=== PATIENT | male | born 1970 | race Caucasian/White ===

== ENCOUNTER 2016-04-24 06:35 | Emergency (ER) | payer BC ==
[~2016-04-24] VITALS: Ht 190.5 cm; Wt 135.6 kg
[2016-04-24 06:35] VITALS: TEMP 36.5; O2SAT 94; O2SAT 96; Ht 190.5 cm; Wt 135.6 kg
[~2016-04-24 06:35] MED LIST: CPR500HP PO; GABA1CAP4 PO; MTR500 PO
[2016-04-24] MEDS ORDERED: SODIUM CHLORIDE 0.9% 1000ML 1,000 ML IV STA (06:48)
[2016-04-24] MEDS ORDERED: RANITIDINE HCL 150 MG TAB PO STA (06:48)
[2016-04-24] MEDS ORDERED: SULFAMETHOXAZOLE/TRIMETHOPRIM DS 800/160MG TAB PO STA (06:59)
[2016-04-24 07:20] LABS: BASO % 0.9 %; BASO ABS # 0.06 K/uL (0-0.2); COMPLETE YES; HEMATOCRIT 44.5 % (42-52); IG% 0.3 %; LYMPH % 27.3 %; LYMPH ABS # 1.88 K/uL (1.2-3.4); MEAN CELL VOLUME 88.8 fL (80-100); MEAN CORPUSCULAR HEMOGLOBIN 30.7 pg (25-34); MEAN CORPUSCULAR HGB CONC 34.6 g/dl (32-36); MEAN PLATELET VOLUME 10.1 fL (7.4-10.4); NEUT % 58.5 %; PLATELET COUNT 278 K/uL (130-400); RED BLOOD COUNT 5.01 M/uL (4.7-6.1); WHITE BLOOD COUNT 6.89 K/uL (4.8-10.8)
--- NOTE | 2016-04-24 07:24 | DIAGNOSTIC IMAGING REPORT ---
CHEST ONE VIEW PORTABLE CLINICAL HISTORY: Atypical chest pain. Allergic reaction. COMPARISON STUDY: No previous studies for comparison. FINDINGS: The heart is enlarged. There is no focal pulmonary consolidation. There is no overt failure. No pneumothorax is visualized.[ There are minor left basilar atelectatic changes IMPRESSION: Cardiomegaly. No evidence of focal pulmonary consolidation. Electronically signed by: Catracho Piña M.D. 04/24/2016 7:21 AM Dictated Date/Time: 04/24/2016 7:21 AM
[2016-04-24 07:38] LABS: ALT/SGPT 30 U/L (12-78); BLOOD UREA NITROGEN 20 mg/dl (7-18); CALCIUM 9.2 mg/dl (8.5-10.1); CARBON DIOXIDE 24 mmol/L (21-32); CHLORIDE 106 mmol/L (98-107); GLUCOSE 107 mg/dl (70-99); POTASSIUM 3.9 mmol/L (3.5-5.1); SODIUM 141 mmol/L (136-145)
[2016-04-24 07:44] LABS: ALKALINE PHOSPHATASE 60 U/L (45-117); AST/SGOT 20 U/L (15-37); CKMB/CK RATIO 0.8 (0-3.0)
--- NOTE | 2016-04-24 08:03 | EMERGENCY ROOM VISIT NOTE ---
History Report prepared by Nicki: Silvia Mccauley Under the Supervision of: Dr. David Johnson M.D. First contact with patient: 06:38 Chief Complaint: ALLERGIC REACTION Stated Complaint: ALLERGIC REACTION History of Present Illness The patient is a 45 year old male arriving by ambulance who presents to the Emergency Room for evaluation of a possible allergic reaction after taking 500 mg Metronidazole and Ciprofloxacin at 1.5 hours prior to arrival. Currently, the patient is resting more comfortably as he had improvement of symptoms after receiving NSS 400 ml IV, 1 DuoNeb, Benadryl 50 mg IV and Solu-Medrol 125 mg IV via EMS en route to the ED, however he is still experiencing mild tightness to his chest as well as lightheadedness. Patient states that he was recently prescribed Metronidazole and Ciprofloxacin for a flare up of diverticulitis. About 15 minutes after taking 500 mg of each medication at 0500 for the first time this morning, the patient developed a rash to his neck and back, watery eyes, tightness to his throat and chest, difficulty swallowing, as well as shortness of breath. The patient called the ambulance for assistance, and upon their arrival he states that he was feeling improved, however, his symptoms then returned en route to the ED. The patient denies coming into any other substances that may have lead to the reaction today, including new foods, laundry detergents, perfumes, or other medications. He states that he did experience a similar reaction after taking penicillin several years ago. He is unsure of which antibiotic he received during his last diverticulitis flare 15 years prior. The patient denies having recent fevers, chills, headache, chest pain, shortness of breath, abdominal pain, nausea, vomiting, diarrhea or urinary difficulties, or other symptoms prior to the reaction today. Patient has a history of hypertension. He denies personal history of cardiac disease but states that his grandfather of [place] at age 58. Source of History: patient Onset: 514 Position: other (generalized) Symptom Intensity: mild Quality: other (allergic reaction) Timing: other (improved) Modifying Factors (Relieving): other (Benadryl, NSS, Solu-Medrol, DuoNeb) Associated Symptoms: + SOB, + chest pain (tightness), + rash, + sorethroat ( tightness), No abdominal pain, No chills, No diarrhea, No fevers, No nausea, No urinary symptoms, No vomiting Review of Systems See HPI for pertinent positives & negatives. A total of 10 systems reviewed and were otherwise negative. Past Medical & Surgical Medical Problems: (1) Diverticulitis Colon (W/O Ment Of Hemorrhage) (2) Hypertension Nos Family History FHx: heart disease Social History Smoking Status: Never Smoker Alcohol Use: none Drug Use: none Marital Status: Occupation Status: employed Current/Historical Medications Scheduled Ciprofloxacin (Ciprofloxacin HCl), 1 TAB PO BID Metronidazole (Metronidazole), 1 TAB PO UD Prednisone (Prednisone Tab), 0 PO DAILY Ranitidine Hcl (Zantac), 150 MG PO BID Sulfamethoxazole-Trimethoprim (Bactrim Ds 800MG/160MG), 1 TAB PO BID Allergies Coded Allergies: Ciprofloxacin (Verified Allergy, Intermediate, rash. chest tightness. SOB. dizziness, 04/24/16) Metronidazole (Verified Allergy, Intermediate, rash. chest tightness. SOB. dizziness, 04/24/16) Penicillins (Verified Allergy, Unknown, 04/24/16) Physical Exam Vital Signs Date Time Temp Pulse Resp B/P Pulse Ox O2 Delivery O2 Flow Rate FiO2 04/24/16 08:41 76 16 152/95 04/24/16 07:45 71 16 157/101 04/24/16 06:41 81 04/24/16 06:35 36.5 78 16 173/103 96 Room Air 04/24/16 06:35 96 Room Air 04/24/16 06:35 94 Room Air Physical Exam GENERAL: Patient is a healthy-appearing well-nourished 45 year old male. HEAD: Normocephalic atraumatic EYES: Ocular movements intact pupils equal and react to light. Sclera are injected. OROPHARYNX mucous membranes are moist no exudates present no erythema or edema present NECK: Supple no nuchal rigidity CHEST: Good equal expansion LUNGS: Clear and equal to auscultation CARDIAC: Normal S1 and S2 ABDOMEN: Soft nontender no guarding BACK: No CVA tenderness EXTREMITIES: No pain upon palpation normal muscle strength in all groups no clubbing cyanosis or edema SKIN: Hives on the arms and chest. NEURO: Patient is following commands is answering questions appropriately. Alert and oriented x3 Cranial Nerves 2-12 grossly intact Medical Decision & Procedures ER Provider Diagnostic Interpretation: X-ray results as stated below per interpretation by me and the radiologist: CHEST ONE VIEW PORTABLE CLINICAL HISTORY: Atypical chest pain. Allergic reaction. COMPARISON STUDY: No previous studies for comparison. FINDINGS: The heart is enlarged. There is no focal pulmonary consolidation. There is no overt failure. No pneumothorax is visualized.[ There are minor left basilar atelectatic changes IMPRESSION: Cardiomegaly. No evidence of focal pulmonary consolidation. Electronically signed by: Catracho Piña M.D. 04/24/2016 7:21 AM Dictated Date/Time: 04/24/2016 7:21 AM Laboratory Results 04/24/16 07:00 Red Blood Count 5.01, Mean Corpuscular Volume 88.8, Mean Corpuscular Hemoglobin 30.7, Mean Corpuscular Hemoglobin Concent 34.6, Mean Platelet Volume 10.1, Neutrophils (%) (Auto) 58.5, Lymphocytes (%) (Auto) 27.3, Monocytes (%) (Auto) 10.0, Eosinophils (%) (Auto) 3.0, Basophils (%) (Auto) 0.9, Neutrophils # (Auto ) 4.03, Lymphocytes # (Auto) 1.88, Monocytes # (Auto) 0.69, Eosinophils # (Auto ) 0.21, Basophils # (Auto) 0.06 04/24/16 07:00 Test 04/24/16 07:00 White Blood Count 6.89 K/uL (4.8-10.8) Red Blood Count 5.01 M/uL (4.7-6.1) Hemoglobin 15.4 g/dL (14.0-18.0) Hematocrit 44.5 % (42-52) Mean Corpuscular Volume 88.8 fL (80-100) Mean Corpuscular Hemoglobin 30.7 pg (25-34) Mean Corpuscular Hemoglobin Concent 34.6 g/dl (32-36) Platelet Count 278 K/uL (130-400) Mean Platelet Volume 10.1 fL (7.4-10.4) Neutrophils (%) (Auto) 58.5 % Lymphocytes (%) (Auto) 27.3 % Monocytes (%) (Auto) 10.0 % Eosinophils (%) (Auto) 3.0 % Basophils (%) (Auto) 0.9 % Neutrophils # (Auto) 4.03 K/uL (1.4-6.5) Lymphocytes # (Auto) 1.88 K/uL (1.2-3.4) Monocytes # (Auto) 0.69 K/uL (0.11-0.59) Eosinophils # (Auto) 0.21 K/uL (0-0.5) Basophils # (Auto) 0.06 K/uL (0-0.2) RDW Standard Deviation 41.6 fL (36.4-46.3) RDW Coefficient of Variation 12.9 % (11.5-14.5) Immature Granulocyte % (Auto) 0.3 % Immature Granulocyte # (Auto) 0.02 K/uL (0.00-0.02) Anion Gap 11.0 mmol/L (3-11) Est Creatinine Clear Calc Drug Dose 127.2 ml/min Estimated GFR () 94.1 Estimated GFR (Non- 81.2 BUN/Creatinine Ratio 18.0 (10-20) Calcium Level 9.2 mg/dl (8.5-10.1) Total Bilirubin 0.5 mg/dl (0.2-1) Direct Bilirubin < 0.1 mg/dl (0-0.2) Aspartate Amino Transf (AST/SGOT) 20 U/L (15-37) Alanine Aminotransferase (ALT/SGPT) 30 U/L (12-78) Alkaline Phosphatase 60 U/L (45-117) Total Creatine Kinase 157 U/L (39-308) Creatine Kinase MB 1.2 ng/ml (0.5-3.6) Creatine Kinase MB Ratio 0.8 (0-3.0) Troponin I < 0.015 ng/ml (0-0.045) Total Protein 8.2 gm/dl (6.4-8.2) Albumin 4.1 gm/dl (3.4-5.0) Lipase 187 U/L (73-393) Labs reviewed by ED physician. Medications Administered Medications (Trade) Dose Ordered Sig/Andre Route Start Time Stop Time Status Last Admin Dose Admin Sodium Chloride (Nss 1000ml) 1,000 ml @ 999 mls/hr Q1H1M STAT IV 04/24/16 06:48 04/24/16 07:48 DC 04/24/16 07:02 999 MLS/HR Ranitidine HCl (zANTac TAB) 150 mg NOW STAT PO 04/24/16 06:48 04/24/16 06:50 DC 04/24/16 07:02 150 MG Trimethoprim/ Sulfamethoxazole (Septra Ds 800/ 160MG Tab) 1 tab NOW STAT PO 04/24/16 06:59 04/24/16 07:03 DC 04/24/16 07:53 1 TAB ECG Indication: chest pain Rate (beats per minute): 72 Rhythm: normal sinus Findings: RBBB, no acute ischemic change, no ectopy Change: Repeat EKG showed NSR at 73 BPM with RBBB. No acute ischemia or ectopy. ED Course 0637: Past medical records reviewed. The patient was evaluated in room A2. A complete history and physical examination was performed. 0648: Zantac 150 mg PO and NSS bolus IV were ordered. 0659: Septra Ds 800/160 mg 1 tab PO was ordered. 0820: Upon reevaluation, the patient was doing well and was not experiencing any further symptoms. I updated him on the results of his radiology reports and lab tests. A repeat EKG will be done. 0835: The patient did not have any changes or significant findings on his repeat EKG. Discharge instructions were discussed with him at this time. He verbalized his understanding and agreement with the treatment plan, and he is now ready for disposition. Medical Decision Differential diagnosis: Etiologies such as allergic reaction, anaphylaxis, urticaria, Bentley-Oliverio syndrome, toxic epidermal necrolysis, erythema multiforme, cellulitis, as well as others were entertained. This is a 45-year-old male who presents emergency department complaining of allergic reaction. The patient was recently placed on Cipro and Flagyl for diverticulitis. He experienced a large anaphylactic-like reaction. He still has hives present on his chest. An IV was established EMS gave the patient Solu -Medrol as well as fluid. He was given Benadryl as well as Zantac. Repeat examination revealed much improvement patient's symptoms. While the patient was having his allergic reaction, he was having some chest pain and he does have a significant family history of cardiac issues. For this reason the patient had EKG as well as laboratory studies drawn including CK-MB and troponin. These were all normal. I then repeated the EKG as well as the troponin studies approximate 90 minutes later. These again were normal and unchanged. Based on these findings I felt that the patient could be safely discharged home for follow-up with cardiology. I also stressed the need for follow-up with gastroenterology. Patient was in agreement with the treatment plan. Impression Primary Impression: Allergic reaction Additional Impression: Precordial chest pain Scribe Attestation The scribe's documentation has been prepared under my direction and personally reviewed by me in its entirety. I confirm that the note above accurately reflects all work, treatment, procedures, and medical decision making performed by me. Departure Information Dispostion Home / Self-Care Prescriptions Ranitidine Hcl (ZANTAC) 150 Mg Tab 150 MG PO BID for 7 Days, #14 TAB Prov: David Johnson MD 04/24/16 Prednisone (Prednisone Tab) 20 Mg Tab 0 PO DAILY, #7 TAB 2 TABS DAILY FOR 2 DAYS, THEN 1 TAB DAILY FOR 2 DAYS, THEN 1/2 TAB DAILY FOR 2 DAYS. Prov: David Johnson MD 04/24/16 Sulfamethoxazole-Trimethoprim (Bactrim Ds 800MG/160MG) 1 Tab Tab 1 TAB PO BID for 10 Days, #20 TAB Prov: David Johnson MD 04/24/16 Referrals Benito Loyd M.D. (PCP) Forms HOME CARE DOCUMENTATION FORM, IMPORTANT VISIT INFORMATION, School Instructions, Work Instructions Patient Instructions Chest Pain - [facility], Diverticulosis Diverticulitis, ED Drug React Allergic, My [facility] Additional Instructions STOP taking Cipro and Flagyl Follow up with DR Billings's office for Chest pain this week Follow up with [facility] for diverticulitis You have been examined and treated today on an emergency basis only. This is not a substitute for, or an effort to provide, complete comprehensive medical care. It is impossible to recognize and treat all injuries or illnesses in a single emergency department visit. It is therefore important that you follow up closely with Dr Loyd. Call as soon as possible for an appointment. Thank you for your time and consideration. I look forward to speaking with you again soon. Please don't hesitate to call us if you have any questions. Problem Qualifiers Primary Impression: Allergic reaction Encounter type: initial encounter Qualified Codes: T78.40XA - Allergy, unspecified, initial encounter
[2016-04-24] MEDS ORDERED: SULF800T23 PO (08:39)
[2016-04-24] MEDS ORDERED: RANI150T3 PO (08:39)
[2016-04-24] MEDS ORDERED: PRED20TA2 PO (08:39)
[2016-04-24 08:41] VITALS: BP 152/95; PULSE 76
[2016-11-04] MEDS ORDERED: DXY100 PO (12:04)
[2016-11-04] MEDS ORDERED: LCTX PO (12:04)
[2016-12-07] MEDS ORDERED: DXY100 PO (09:43)
[2016-12-07] MEDS ORDERED: ULT50X PO (09:43)
== END 2016-04-24 08:57 | disposition home or self-care (01) ==
LOC: EDBD 06:35 → C.EDA 06:36
DX: R07.2 Precordial pain (principal); L50.9 Urticaria, unspecified; T36.8X5A Adverse effect of other systemic antibiotics, initial encounter; T37.3X5A Adverse effect of other antiprotozoal drugs, initial encounter; I10 Essential (primary) hypertension; K57.32 Diverticulitis of large intestine without perforation or abscess without bleeding; I51.7 Cardiomegaly; I45.10 Unspecified right bundle-branch block; X58.XXXA Exposure to other specified factors, initial encounter; Y93.89 Activity, other specified; Y92.89 Other specified places as the place of occurrence of the external cause; Y99.8 Other external cause status

== ENCOUNTER 2016-11-02 15:31 | Inpatient (IN) | payer BC ==
[~2016-11-02] VITALS: Ht 190.5 cm; Wt 122.2 kg
[~2016-11-02 15:31] MED LIST changes: -GABA1CAP4 PO
[2016-11-02] MEDS ORDERED: SODIUM CHLORIDE 0.9% 1000ML 1,000 ML IV STA ×2 (16:29→18:06)
--- NOTE | 2016-11-02 16:32 | EMERGENCY ROOM VISIT NOTE ---
History Report prepared by Nicki: Carmelo Ojeda Under the Supervision of: Dr. Shorty Sinclair M.D. First contact with patient: 16:21 Chief Complaint: ILLNESS Stated Complaint: LIGHTHEADED,BODY ACHES,FEVER History of Present Illness The patient is a 46 year old male who presents to the Emergency Room with complaints of a worsening illness that started around 2 weeks ago. Per the patient's , the patient has been sick since the spring, and some of his doctors were thinking there were issues with the patient's kidneys, but they told the patient that the issues would pass. The patient would get intermittent left-sided flank pain, but did not get any CT scans. Per the patient's , the patient went downhill 2 weeks ago. The patient says that around 2 weeks ago , he had been working out in the heat and humidity everyday, and every time he would come home from work, he would start shaking and get freezing cold. The patient notes that he was drinking a lot of water. He adds that he has been coughing up blood at times, and is now having a headache, shortness of breath, and some left ear pain. He also notes that he has been having bilateral neck stiffness. He adds that he has been vomiting blood every morning. The patient has not had any hematuria, but his urine has been "tangerine orange". He went to the [facility] walk-in clinic prior to arrival today, and was told to come here for extensive lab work. The patient denies any rashes, burning with urination, diarrhea, melena, hematochezia, leg swelling, or recent falls or injuries. He says that he had Lyme testing a month ago which was negative. The patient notes no recent sick contacts. He has no history of blood clots. He is not on any daily medication. The patient denies any history of steroid or drug abuse. Source of History: patient, spouse/significant other Onset: Around 2 weeks ago Timing: worsening Associated Symptoms: + chills, + headache, + cough (blood), + SOB, + vomiting (blood), + urinary symptoms (orange urine), No melena, No hematochezia , No diarrhea, No rash Note: Associated symptoms: Intermittent left sided flank pain. Shakiness. Some left ear pain. Bilateral neck stiffness. Denies burning with urination, leg swelling. Review of Systems See HPI for pertinent positives & negatives. A total of 10 systems reviewed and were otherwise negative. Past Medical & Surgical Medical Problems: (1) Diverticulitis Colon (W/O Ment Of Hemorrhage) (2) Febrile illness (3) Hypertension Nos Family History FHx: heart disease Social History Smoking Status: Never Smoker Alcohol Use: none Drug Use: none Marital Status: Occupation Status: employed Current/Historical Medications No Active Prescriptions or Reported Meds Allergies Coded Allergies: Ciprofloxacin (Verified Allergy, Intermediate, rash. chest tightness. SOB. dizziness, 04/24/16) Metronidazole (Verified Allergy, Intermediate, rash. chest tightness. SOB. dizziness, 04/24/16) Sulfamethoxazole w/Trimethoprim (Verified Allergy, Intermediate, RASH, ) Penicillins (Verified Allergy, Unknown, 04/24/16) Physical Exam Vital Signs Date Time Temp Pulse Resp B/P (MAP) Pulse Ox O2 Delivery O2 Flow Rate FiO2 11/02/16 21:40 75 16 125/77 96 Room Air 11/02/16 18:51 75 16 125/76 96 Room Air 11/02/16 15:42 36.7 86 16 133/88 95 Room Air Physical Exam GENERAL: Patient is mildly anxious appearing, tired appearing, in minimal distress. HEENT: No acute trauma, normocephalic atraumatic, mucous membranes moist, no nasal congestion, no scleral icterus. NECK: No stridor, no adenopathy, no meningismus, trachea is midline. LUNGS: No dyspnea. Clear to auscultation and equal bilaterally. No wheeze, no rhonchi. HEART: Regular rate and rhythm. No murmurs, rubs, gallops appreciated. ABDOMEN: Soft, nontender, bowel sounds positive, no masses appreciated, no peritonitis. BACK: No midline tenderness, no CVA tenderness EXTREMITIES: Normal motion all extremities, no cyanosis, no edema. NEUROLOGIC: Alert and oriented, no acute motor or sensory deficits, no focal weakness, cranial nerves grossly intact. SKIN: No rash, no jaundice, no diaphoresis. Medical Decision & Procedures ER Provider Diagnostic Interpretation: Radiology results and stated below per my review and radiologist interpretation: CHEST ONE VIEW PORTABLE CLINICAL HISTORY: Shortness of breath. Hemoptysis. COMPARISON STUDY: Chest radiograph April 24, 2016. FINDINGS: No pneumothorax or pleural effusion is present. There is no consolidation to suggest pneumonia. Pulmonary vascularity is normal. Moderate cardiomegaly is unchanged. There is no evidence of pulmonary edema. IMPRESSION: 1. No acute cardiopulmonary findings. 2. Stable cardiomegaly. Electronically signed by: Boston Harper M.D. 11/02/2016 5:36 PM Dictated Date/Time: 11/02/2016 5:[address] OF THE HEAD WITHOUT CONTRAST CLINICAL HISTORY: Significant headache. COMPARISON STUDY: Head CT April 07, 2011. CT DOSE: 614.27 mGy.cm TECHNIQUE: Helical axial images of the head were obtained without IV contrast. Automated exposure control was utilized for the study. A dose lowering technique was utilized adhering to the principles of ALARA. FINDINGS: No acute intracranial hemorrhage, midline shift or mass effect is present. Ventricular system is normal. Basilar cisterns are patent. There are no extra-axial collections. Barraza-white differentiation is maintained. There are no findings to suggest acute dural sinus thrombosis or acute territorial infarct. Left maxillary sinus is diminutive and opacified. This is chronic. Right maxillary sinus is diminutive. Mastoid air cells are clear. There are no significant calvarial abnormalities. IMPRESSION: 1. No acute intracranial findings. 2. Chronic left maxillary sinusitis. Electronically signed by: Boston Harper M.D. 11/02/2016 7:29 PM Dictated Date/Time: 11/02/2016 7:[address] ANGIOGRAPHY OF THE CHEST, PULMONARY EMBOLUS PROTOCOL CLINICAL HISTORY: Hemoptysis. Elevated d-dimer. COMPARISON STUDY: Chest radiograph April 24, 2016 and November 02, 2016. TECHNIQUE: Following IV administration of 116 mL of Optiray-320, helical axial images of the chest were obtained utilizing the pulmonary embolus protocol. Maximal intensity projections and sagittal and coronal reformats were viewed on an independent 3D workstation. IV contrast was administered without complication. A dose lowering technique was utilized adhering to the principles of ALARA. FINDINGS: No central or lobar pulmonary emboli are identified. Evaluation of the segmental and subsegmental pulmonary arteries is suboptimal due to respiratory motion artifact. The heart is moderately enlarged. There is no pericardial effusion. There is no thoracic aortic dissection. Note is made of mild dilatation of the ascending aorta which measures 4.1 cm at the level of the main pulmonary artery. No enlarged thoracic lymph nodes are present. Groundglass opacities within the lower lobes, lingula and right middle lobe are suboptimally assessed due to respiratory motion artifact but favor atelectasis. The bony thorax is unremarkable. The abdomen and pelvis will be reported separately. IMPRESSION: 1. No pulmonary emboli identified although segmental and subsegmental pulmonary arteries inadequately assessed due to respiratory motion artifact. 2. Moderate cardiomegaly with mild dilatation of the ascending aorta. No thoracic dissection. No pericardial effusion. 3. Bilateral lower lobe and lingular opacities which favor atelectasis. An infectious process could appear similar but is considered less likely. Electronically signed by: Boston Harper M.D. 11/02/2016 7:42 PM Dictated Date/Time: 11/02/2016 7:[address] OF THE ABDOMEN AND PELVIS WITH CONTRAST CLINICAL HISTORY: Left flank pain, positive mono, spleen? dark urination COMPARISON STUDY: CT of the abdomen and pelvis August 11, 2014. TECHNIQUE: Following IV administration of 116 mL of Optiray-320, axial images of the abdomen and pelvis were obtained from the lung bases to the proximal femurs. Images were reviewed in the axial, sagittal, and coronal planes. IV contrast was administered without complication. A dose lowering technique was utilized adhering to the principles of ALARA. CT DOSE: 2010.27 mGy.cm FINDINGS: The liver, adrenal glands and pancreas are unremarkable. There is no biliary or pancreatic ductal dilatation. A few prominent upper abdominal lymph nodes are unchanged since exam of August 11, 2014. Water attenuation bilateral renal lesions reflect cysts. There is no hydronephrosis. Mild splenomegaly has developed since CT of August 11, 2014. In addition, there is a probable 1.9 cm peripheral hypodensity within the anterior aspect of the midpole of the spleen. This is shown on axial image 24 of 109. There is trace fluid inferior to the spleen. There is no evidence for a bowel obstruction. The appendix is normal. There is colonic diverticulosis without evidence for acute diverticulitis. Fat-containing bilateral inguinal hernias are present. There are no suspicious osseous lesions. Moderate cardiomegaly is better depicted on the chest CT. IMPRESSION: 1. Mild splenomegaly which has developed since CT of August 11, 2014. 1.9 cm peripheral hypodensity within the mid aspect of the spleen may reflect a tiny infarct or less likely laceration although artifact could appear similar. Trace fluid inferior to the spleen. 2. Moderate cardiomegaly. 3. No bowel obstruction. Normal appendix. Electronically signed by: Boston Harper M.D. 11/02/2016 7:52 PM Dictated Date/Time: 11/02/2016 7:42 PM Laboratory Results 11/02/16 16:43 Red Blood Count 4.87, Mean Corpuscular Volume 92.8, Mean Corpuscular Hemoglobin 30.8, Mean Corpuscular Hemoglobin Concent 33.2, Mean Platelet Volume 9.8, Neutrophils (%) (Auto) 20.5, Lymphocytes (%) (Auto) 64.0, Monocytes (%) (Auto) 11.8, Eosinophils (%) (Auto) 1.0, Basophils (%) (Auto) 2.3, Neutrophils # (Auto ) 2.29, Lymphocytes # (Auto) 7.11, Monocytes # (Auto) 1.31, Eosinophils # (Auto ) 0.11, Basophils # (Auto) 0.25 11/02/16 16:43 Test 11/02/16 16:43 White Blood Count 11.11 K/uL (4.8-10.8) Red Blood Count 4.87 M/uL (4.7-6.1) Hemoglobin 15.0 g/dL (14.0-18.0) Hematocrit 45.2 % (42-52) Mean Corpuscular Volume 92.8 fL (80-100) Mean Corpuscular Hemoglobin 30.8 pg (25-34) Mean Corpuscular Hemoglobin Concent 33.2 g/dl (32-36) Platelet Count 224 K/uL (130-400) Mean Platelet Volume 9.8 fL (7.4-10.4) Neutrophils (%) (Auto) 20.5 % Lymphocytes (%) (Auto) 64.0 % Monocytes (%) (Auto) 11.8 % Eosinophils (%) (Auto) 1.0 % Basophils (%) (Auto) 2.3 % Neutrophils # (Auto) 2.29 K/uL (1.4-6.5) Lymphocytes # (Auto) 7.11 K/uL (1.2-3.4) Monocytes # (Auto) 1.31 K/uL (0.11-0.59) Eosinophils # (Auto) 0.11 K/uL (0-0.5) Basophils # (Auto) 0.25 K/uL (0-0.2) RDW Standard Deviation 45.0 fL (36.4-46.3) RDW Coefficient of Variation 13.2 % (11.5-14.5) Immature Granulocyte % (Auto) 0.4 % Immature Granulocyte # (Auto) 0.04 K/uL (0.00-0.02) Prothrombin Time 11.3 SECONDS (9.0-12.0) Prothromb Time International Ratio 1.1 (0.9-1.1) Activated Partial Thromboplast Time 27.9 SECONDS (21.0-31.0) Partial Thromboplastin Ratio 1.1 D-Dimer 2510 ug/L FEU (0-500) Anion Gap 3.0 mmol/L (3-11) Est Creatinine Clear Calc Drug Dose 119.4 ml/min Estimated GFR () 93.5 Estimated GFR (Non- 80.6 BUN/Creatinine Ratio 12.1 (10-20) Calcium Level 8.9 mg/dl (8.5-10.1) Total Bilirubin 0.3 mg/dl (0.2-1) Direct Bilirubin < 0.1 mg/dl (0-0.2) Aspartate Amino Transf (AST/SGOT) 74 U/L (15-37) Alanine Aminotransferase (ALT/SGPT) 121 U/L (12-78) Alkaline Phosphatase 67 U/L (45-117) Total Creatine Kinase 60 U/L (39-308) Creatine Kinase MB < 0.5 ng/ml (0.5-3.6) Creatine Kinase MB Ratio (0-3.0) Troponin I < 0.015 ng/ml (0-0.045) C-Reactive Protein 1.35 mg/dl (0-0.29) Total Protein 7.4 gm/dl (6.4-8.2) Albumin 3.5 gm/dl (3.4-5.0) Lipase 204 U/L (73-393) Lyme Disease IgG Antibody NEG (NEG) Monoscreen POS (NEG) Laboratory results as reviewed by me. Medications Administered Medications (Trade) Dose Ordered Sig/Andre Route Start Time Stop Time Status Last Admin Dose Admin Sodium Chloride 1,000 ml @ 999 mls/hr Q1H1M STAT IV 11/02/16 16:29 11/02/16 17:29 DC 11/02/16 16:48 999 MLS/HR Sodium Chloride 1,000 ml @ 999 mls/hr Q1H1M STAT IV 11/02/16 18:06 11/02/16 19:06 DC 11/02/16 18:45 999 MLS/HR ECG Indication: SOB/dyspnea Rate (beats per minute): 71 Rhythm: normal sinus Findings: RBBB, no acute ischemic change, no ectopy ED Course 1621: The patient was evaluated in room C4. A complete history and physical exam was performed. 1628: Ordered NSS 1000 ml @ 999 mls/hr IV. 1804: I reevaluated the patient and reviewed the pros and cons of a CT scan of his chest, abdomen, and pelvis. Furthermore, he notes that he has a severe headache, and he and his are concerned that he may have a brain issues, so we will do a CT of his head. 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 He has still not urinated since being here. 2017: I discussed the patient with Dr. Velasquez Chavarria general surgery - he agrees that it is reasonable to keep the patient here without need for transfer due to spleen issue. 2044: I reevaluated the patient and he was resting. The patient verbally expressed understanding and agreement of the treatment plan. The patient will be evaluated for further treatment. 2113: I discussed the patient with Dr. Rehan Chavarria take out waiter - he will evaluate the patient for further treatment. Medical Decision Differential: Sepsis, Infectious (UTI/Pneumonia/Meningitis/etc), Metabolic/ Electrolyte Abnormality, Cardiac, Hepatic, Endocrine, Toxicologic, Neurologic, amongst other pathologies entertained. 46 yr old male with vast varying complaints which sort of started over last few months but worse over last 2 weeks. Essentially... joint aches/pains, muscle soreness, fatigue, neck soreness, headaches, nausea/vomiting, cough, periodic blood in cough/vomiting. About a week ago with acute left flank/LUQ abdominal pain which has improved though still sore. With symptoms and just not looking well by exam I felt that reasonable to get large array of labs. Lyme early IgM positive/equivocal which is actually consistent with his symptoms. Complicating matters is the positive mono-spot which raises concerns given acute left flank pain, thus will need CT to rule out spleenic issue. Coughing blood with periodic SHOB thus felt Dimer reasonable which is significantly positive the CT PE indicated. On top of this with significant headache and will get head ct prior to given contrast. CT's reveal small fluid left spleen with infarct vs laceration. Small, and with symptoms ongoing for several days, this is not expanding I feel it is sub acute and does not require trauma service evaluation at this time. I do feel with his vast symptoms, he will need to be treated as disseminated lyme. He does not have evidence of meningitis by exam, and I do not feel that LP required at this time given his many symptoms. We will treat empirically with IV Rocephin (discussed with hospitalist). With spleen laceration and splenomegaly in setting of mild LFT elevation I would assume that the mono is a true positive and new. Though it does seem tough to see that he could have both acute lyme and acute mono at same time. Medication Reconcilliation Current Medication List: was personally reviewed by me No current daily medications noted. Blood Pressure Screening Patient's blood pressure: Normal blood pressure Consults Time Called: 2014 Consulting Physician: Dr. Velasquez Chavarria general surgery Returned Call: 2017 I discussed the patient with Dr. Velasquez Chavarria general surgery - he agrees that it is reasonable to keep the patient here without need for transfer due to spleen issue. Additional Consults: Time Called: 2099 Consulted Physician: Dr. Rehan Chavarria take out waiter Returned Call: 2113 Additional Comments: I discussed the patient with Dr. Rehan Chavarria take out waiter - he will evaluate the patient for further treatment. Impression Primary Impression: Disseminated Lyme disease Additional Impressions: Mononucleosis Splenic laceration Splenomegaly Elevated liver function tests Scribe Attestation The scribe's documentation has been prepared under my direction and personally reviewed by me in its entirety. I confirm that the note above accurately reflects all work, treatment, procedures, and medical decision making performed by me. Departure Information Dispostion Being Evaluated By Hospitalist Prescriptions No Active Prescriptions or Reported Meds Referrals Benito Loyd M.D. (PCP) Patient Instructions My [facility] Problem Qualifiers Additional Impressions: Splenic laceration Encounter type: initial encounter Qualified Codes: S36.039A - Unspecified laceration of spleen, initial encounter
[2016-11-02 16:52] LABS: HEMATOCRIT 45.2 % (42-52); MEAN CELL VOLUME 92.8 fL (80-100); MEAN CORPUSCULAR HEMOGLOBIN 30.8 pg (25-34); MEAN CORPUSCULAR HGB CONC 33.2 g/dl (32-36); MEAN PLATELET VOLUME 9.8 fL (7.4-10.4); PLATELET COUNT 224 K/uL (130-400); RED BLOOD COUNT 4.87 M/uL (4.7-6.1); WHITE BLOOD COUNT 11.11 K/uL (4.8-10.8)
[2016-11-02 17:10] LABS: ALT/SGPT 121 U/L (12-78); AST/SGOT 74 U/L (15-37); BLOOD UREA NITROGEN 13 mg/dl (7-18); BUN/CREATININE RATIO 12.1 (10-20); CALCIUM 8.9 mg/dl (8.5-10.1); CARBON DIOXIDE 29 mmol/L (21-32); CHLORIDE 107 mmol/L (98-107); GLUCOSE 102 mg/dl (70-99); POTASSIUM 4.6 mmol/L (3.5-5.1); SODIUM 139 mmol/L (136-145)
[2016-11-02 17:13] LABS: ALKALINE PHOSPHATASE 67 U/L (45-117); C-REACTIVE PROTEIN 1.35 mg/dl (0-0.29)
[2016-11-02 17:36] LABS: INR 1.1 (0.9-1.1); PARTIAL THROMBOPLASTIN RATIO 1.1; PROTHROMBIN TIME (PATIENT) 11.3 SECONDS (9.0-12.0)
--- NOTE | 2016-11-02 17:37 | DIAGNOSTIC IMAGING REPORT ---
CHEST ONE VIEW PORTABLE CLINICAL HISTORY: Shortness of breath. Hemoptysis. COMPARISON STUDY: Chest radiograph April 24, 2016. FINDINGS: No pneumothorax or pleural effusion is present. There is no consolidation to suggest pneumonia. Pulmonary vascularity is normal. Moderate cardiomegaly is unchanged. There is no evidence of pulmonary edema. IMPRESSION: 1. No acute cardiopulmonary findings. 2. Stable cardiomegaly. Electronically signed by: Boston Harper M.D. 11/02/2016 5:36 PM Dictated Date/Time: 11/02/2016 5:35 PM
[2016-11-02 17:42] LABS: LYME DISEASE AB IGG NEG (NEG)
[2016-11-02 17:44] LABS: LYME DISEASE AB IGM EQUIVOCAL (NEG)
[2016-11-02 18:17] LABS: BASO % 2.3 %; BASO ABS # 0.25 K/uL (0-0.2); COMPLETE YES; IG% 0.4 %; LYMPH ABS # 7.11 K/uL (1.2-3.4); MONO % 11.8 %; NEUT % 20.5 %
[2016-11-02] MEDS ORDERED: OPTIRAY 320 IV PRN (19:30)
--- NOTE | 2016-11-02 19:30 | DIAGNOSTIC IMAGING REPORT ---
CT OF THE HEAD WITHOUT CONTRAST CLINICAL HISTORY: Significant headache. COMPARISON STUDY: Head CT April 07, 2011. CT DOSE: 614.27 mGy.cm TECHNIQUE: Helical axial images of the head were obtained without IV contrast. Automated exposure control was utilized for the study. A dose lowering technique was utilized adhering to the principles of ALARA. FINDINGS: No acute intracranial hemorrhage, midline shift or mass effect is present. Ventricular system is normal. Basilar cisterns are patent. There are no extra-axial collections. Barraza-white differentiation is maintained. There are no findings to suggest acute dural sinus thrombosis or acute territorial infarct. Left maxillary sinus is diminutive and opacified. This is chronic. Right maxillary sinus is diminutive. Mastoid air cells are clear. There are no significant calvarial abnormalities. IMPRESSION: 1. No acute intracranial findings. 2. Chronic left maxillary sinusitis. Electronically signed by: Boston Harper M.D. 11/02/2016 7:29 PM Dictated Date/Time: 11/02/2016 7:25 PM
--- NOTE | 2016-11-02 19:43 | DIAGNOSTIC IMAGING REPORT ---
CT ANGIOGRAPHY OF THE CHEST, PULMONARY EMBOLUS PROTOCOL CLINICAL HISTORY: Hemoptysis. Elevated d-dimer. COMPARISON STUDY: Chest radiograph April 24, 2016 and November 02, 2016. TECHNIQUE: Following IV administration of 116 mL of Optiray-320, helical axial images of the chest were obtained utilizing the pulmonary embolus protocol. Maximal intensity projections and sagittal and coronal reformats were viewed on an independent 3D workstation. IV contrast was administered without complication. A dose lowering technique was utilized adhering to the principles of ALARA. FINDINGS: No central or lobar pulmonary emboli are identified. Evaluation of the segmental and subsegmental pulmonary arteries is suboptimal due to respiratory motion artifact. The heart is moderately enlarged. There is no pericardial effusion. There is no thoracic aortic dissection. Note is made of mild dilatation of the ascending aorta which measures 4.1 cm at the level of the main pulmonary artery. No enlarged thoracic lymph nodes are present. Groundglass opacities within the lower lobes, lingula and right middle lobe are suboptimally assessed due to respiratory motion artifact but favor atelectasis. The bony thorax is unremarkable. The abdomen and pelvis will be reported separately. IMPRESSION: 1. No pulmonary emboli identified although segmental and subsegmental pulmonary arteries inadequately assessed due to respiratory motion artifact. 2. Moderate cardiomegaly with mild dilatation of the ascending aorta. No thoracic dissection. No pericardial effusion. 3. Bilateral lower lobe and lingular opacities which favor atelectasis. An infectious process could appear similar but is considered less likely. Electronically signed by: Boston Harper M.D. 11/02/2016 7:42 PM Dictated Date/Time: 11/02/2016 7:31 PM
--- NOTE | 2016-11-02 19:53 | DIAGNOSTIC IMAGING REPORT ---
CT OF THE ABDOMEN AND PELVIS WITH CONTRAST CLINICAL HISTORY: Left flank pain, positive mono, spleen? dark urination COMPARISON STUDY: CT of the abdomen and pelvis August 11, 2014. TECHNIQUE: Following IV administration of 116 mL of Optiray-320, axial images of the abdomen and pelvis were obtained from the lung bases to the proximal femurs. Images were reviewed in the axial, sagittal, and coronal planes. IV contrast was administered without complication. A dose lowering technique was utilized adhering to the principles of ALARA. CT DOSE: 2010.27 mGy.cm FINDINGS: The liver, adrenal glands and pancreas are unremarkable. There is no biliary or pancreatic ductal dilatation. A few prominent upper abdominal lymph nodes are unchanged since exam of August 11, 2014. Water attenuation bilateral renal lesions reflect cysts. There is no hydronephrosis. Mild splenomegaly has developed since CT of August 11, 2014. In addition, there is a probable 1.9 cm peripheral hypodensity within the anterior aspect of the midpole of the spleen. This is shown on axial image 24 of 109. There is trace fluid inferior to the spleen. There is no evidence for a bowel obstruction. The appendix is normal. There is colonic diverticulosis without evidence for acute diverticulitis. Fat-containing bilateral inguinal hernias are present. There are no suspicious osseous lesions. Moderate cardiomegaly is better depicted on the chest CT. IMPRESSION: 1. Mild splenomegaly which has developed since CT of August 11, 2014. 1.9 cm peripheral hypodensity within the mid aspect of the spleen may reflect a tiny infarct or less likely laceration although artifact could appear similar. Trace fluid inferior to the spleen. 2. Moderate cardiomegaly. 3. No bowel obstruction. Normal appendix. Electronically signed by: Boston Harper M.D. 11/02/2016 7:52 PM Dictated Date/Time: 11/02/2016 7:42 PM
[2016-11-02] MEDS ORDERED: CEFTRIAXONE SOD INJ 1 GM ADDVIAL IV STA (22:03)
--- NOTE | 2016-11-02 22:13 | History and Physical ---
History & Physical Date & Time of Service: Nov 02, 2016 at 22:13 . Chief Complaint: fever, chills, sweats, malaise, myalgias, arthralgias . Primary Care Physician: Benito Loyd M.D. . History of Present Illness Source: patient, clinic records, hospital records 46-year-old male followed by Dr. Loyd for Family Medicine. History of diverticulitis. Otherwise, he enjoys good health. 2 weeks prior to admission noted onset of fatigue. Subsequently developed fever, chills, sweats, arthralgias, myalgias, anorexia. Mild cough, sometimes productive of clear blood-tinged sputum. No nausea, vomiting, diarrhea. No melena or hematochezia. Has had some intermittent left flank pain; no dysuria or hematuria. Diffuse headache. No photophobia. No nuchal rigidity. No rash. 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 Last known tick bite was last fall. He has pet dogs. No recent travel. No sick contacts. . Past Medical/Surgical History Chronic and Resolved Medical Problems: (1) History of colonic diverticulitis Status: Chronic Surgical Problems: (1) Status post partial colectomy Permanent Comment: diverticulitis Status: Chronic . Family History FATHER Hypertension MOTHER Systemic lupus erythematosus Social History Smoking Status: Never Smoker Alcohol Use: socially Drug Use: none Marital Status: Housing status: lives with family Occupational Status: employed Immunizations History of Tetanus Vaccine?: Yes History of Pneumococcal: No History of Hepatitis B Vaccine: No Multi-Drug Resistant Organisms History of MDRO: No Allergies Coded Allergies: Ciprofloxacin (Verified Allergy, Intermediate, rash. chest tightness. SOB. dizziness, 04/24/16) Metronidazole (Verified Allergy, Intermediate, rash. chest tightness. SOB. dizziness, 04/24/16) Sulfamethoxazole w/Trimethoprim (Verified Allergy, Intermediate, RASH, ) Penicillins (Verified Allergy, Unknown, 04/24/16) Home Medications No Active Prescriptions or Reported Meds Review of Systems Constitutional: + fever, + chills, + sweats, No weight loss Eyes: No worsening of vision, No diplopia ENT: + nasal symptoms, No sore throat Respiratory: No cough, No shortness of breath Cardiovascular: No chest pain, No edema Abdomen: + nausea, No vomiting, No diarrhea, No GI bleeding Musculoskeletal: + joint pain, + muscle pain Genitourinary - Male: No hematuria, No dysuria Neurologic: + problem reported (diffuse headache) Endocrine: + fatigue, No excessive thirst, No excessive urination Hematologic / Lymphatic: No abnormal bleeding/bruising, No swollen lymph nodes Integumentary: No rash, No new/changing skin lesions Physical Exam Vital Signs Date Time Temp Pulse Resp B/P (MAP) Pulse Ox O2 Delivery O2 Flow Rate FiO2 11/02/16 21:40 75 16 125/77 96 Room Air 11/02/16 18:51 75 16 125/76 96 Room Air 11/02/16 15:42 36.7 86 16 133/88 95 Room Air General Appearance: WD/WN, no apparent distress Head: normocephalic, atraumatic Eyes: normal inspection, PERRL, EOMI, sclerae normal ENT: normal ENT inspection, hearing grossly normal, pharynx normal Neck: supple, no adenopathy, thyroid normal, trachea midline Respiratory/Chest: lungs clear, no respiratory distress, no accessory muscle use Cardiovascular: regular rate, rhythm, no edema, no gallop, no JVD, no murmur, normal peripheral pulses Abdomen/GI: normal bowel sounds, non tender, soft, no organomegaly, no pulsatile mass Extremities/Musculoskelatal: no calf tenderness, no pedal edema, + pertinent finding (no overt synovitis) 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 (PERRL, EOMI, no facial palsy, no dysarthria), no motor/sensory deficits (motor strength upper and lower extremities grossly intact), alert, normal mood/affect, oriented x 3 Skin: normal color, warm/dry, no rash Lymphatic: no adenopathy (cervical) Diagnostics Laboratory Results Results Past 24 Hours Test 11/02/16 16:43 Range/Units White Blood Count 11.11 4.8-10.8 K/uL Red Blood Count 4.87 4.7-6.1 M/uL Hemoglobin 15.0 14.0-18.0 g/dL Hematocrit 45.2 42-52 % Mean Corpuscular Volume 92.8 80-100 fL Mean Corpuscular Hemoglobin 30.8 25-34 pg Mean Corpuscular Hemoglobin Concent 33.2 32-36 g/dl Platelet Count 224 130-400 K/uL Mean Platelet Volume 9.8 7.4-10.4 fL Neutrophils (%) (Auto) 20.5 % Lymphocytes (%) (Auto) 64.0 % Monocytes (%) (Auto) 11.8 % Eosinophils (%) (Auto) 1.0 % Basophils (%) (Auto) 2.3 % Neutrophils # (Auto) 2.29 1.4-6.5 K/uL Lymphocytes # (Auto) 7.11 1.2-3.4 K/uL Monocytes # (Auto) 1.31 0.11-0.59 K/uL Eosinophils # (Auto) 0.11 0-0.5 K/uL Basophils # (Auto) 0.25 0-0.2 K/uL RDW Standard Deviation 45.0 36.4-46.3 fL RDW Coefficient of Variation 13.2 11.5-14.5 % Immature Granulocyte % (Auto) 0.4 % Immature Granulocyte # (Auto) 0.04 0.00-0.02 K/uL Prothrombin Time 11.3 9.0-12.0 SECONDS Prothromb Time International Ratio 1.1 0.9-1.1 Activated Partial Thromboplast Time 27.9 21.0-31.0 SECONDS Partial Thromboplastin Ratio 1.1 D-Dimer 2510 0-500 ug/L FEU Sodium Level 139 136-145 mmol/L Potassium Level 4.6 3.5-5.1 mmol/L Chloride Level 107 98-107 mmol/L Carbon Dioxide Level 29 21-32 mmol/L Anion Gap 3.0 3-11 mmol/L Blood Urea Nitrogen 13 7-18 mg/dl Creatinine 1.10 0.60-1.40 mg/dl Est Creatinine Clear Calc Drug Dose 119.4 ml/min Estimated GFR () 93.5 Estimated GFR (Non- 80.6 BUN/Creatinine Ratio 12.1 10-20 Random Glucose 102 70-99 mg/dl Calcium Level 8.9 8.5-10.1 mg/dl Total Bilirubin 0.3 0.2-1 mg/dl Direct Bilirubin < 0.1 0-0.2 mg/dl Aspartate Amino Transf (AST/SGOT) 74 15-37 U/L Alanine Aminotransferase (ALT/SGPT) 121 12-78 U/L Alkaline Phosphatase 67 45-117 U/L Total Creatine Kinase 60 39-308 U/L Creatine Kinase MB < 0.5 0.5-3.6 ng/ml Creatine Kinase MB Ratio 0-3.0 Troponin I < 0.015 0-0.045 ng/ml C-Reactive Protein 1.35 0-0.29 mg/dl Total Protein 7.4 6.4-8.2 gm/dl Albumin 3.5 3.4-5.0 gm/dl Lipase 204 73-393 U/L Lyme Disease IgG Antibody NEG NEG Lyme Disease IgM Antibody EQUIVOCAL NEG Monoscreen POS NEG Diagnostic Radiology CHEST ONE VIEW PORTABLE FINDINGS: No pneumothorax or pleural effusion is present. There is no consolidation to suggest pneumonia. Pulmonary vascularity is normal. Moderate cardiomegaly is unchanged. There is no evidence of pulmonary edema. IMPRESSION: 1. No acute cardiopulmonary findings. 2. Stable cardiomegaly. Electronically signed by: Boston Harper M.D. 11/02/2016 5:36 PM Dictated Date/Time: 11/02/2016 5:[address] OF THE HEAD WITHOUT CONTRAST FINDINGS: No acute intracranial hemorrhage, midline shift or mass effect is present. Ventricular system is normal. Basilar cisterns are patent. There are no extra-axial collections. Barraza-white differentiation is maintained. There are no findings to suggest acute dural sinus thrombosis or acute territorial infarct. Left maxillary sinus is diminutive and opacified. This is chronic. Right maxillary sinus is diminutive. Mastoid air cells are clear. There are no significant calvarial abnormalities. IMPRESSION: 1. No acute intracranial findings. 2. Chronic left maxillary sinusitis. Electronically signed by: Boston Harper M.D. 11/02/2016 7:29 PM Dictated Date/Time: 11/02/2016 7:[address] ANGIOGRAPHY OF THE CHEST, PULMONARY EMBOLUS PROTOCOL FINDINGS: No central or lobar pulmonary emboli are identified. Evaluation of the segmental and subsegmental pulmonary arteries is suboptimal due to respiratory motion artifact. The heart is moderately enlarged. There is no pericardial effusion. There is no thoracic aortic dissection. Note is made of mild dilatation of the ascending aorta which measures 4.1 cm at the level of the main pulmonary artery. No enlarged thoracic lymph nodes are present. Groundglass opacities within the lower lobes, lingula and right middle lobe are suboptimally assessed due to respiratory motion artifact but favor atelectasis. The bony thorax is unremarkable. The abdomen and pelvis will be reported separately. IMPRESSION: 1. No pulmonary emboli identified although segmental and subsegmental pulmonary arteries inadequately assessed due to respiratory motion artifact. 2. Moderate cardiomegaly with mild dilatation of the ascending aorta. No thoracic dissection. No pericardial effusion. 3. Bilateral lower lobe and lingular opacities which favor atelectasis. An infectious process could appear similar but is considered less likely. Electronically signed by: Boston Harper M.D. 11/02/2016 7:42 PM Dictated Date/Time: 11/02/2016 7:[address] OF THE ABDOMEN AND PELVIS WITH CONTRAST FINDINGS: The liver, adrenal glands and pancreas are unremarkable. There is no biliary or pancreatic ductal dilatation. A few prominent upper abdominal lymph nodes are unchanged since exam of August 11, 2014. Water attenuation bilateral renal lesions reflect cysts. There is no hydronephrosis. Mild splenomegaly has developed since CT of August 11, 2014. In addition, there is a probable 1.9 cm peripheral hypodensity within the anterior aspect of the midpole of the spleen. This is shown on axial image 24 of 109. There is trace fluid inferior to the spleen. There is no evidence for a bowel obstruction. The appendix is normal. There is colonic diverticulosis without evidence for acute diverticulitis. Fat-containing bilateral inguinal hernias are present. There are no suspicious osseous lesions. Moderate cardiomegaly is better depicted on the chest CT. IMPRESSION: 1. Mild splenomegaly which has developed since CT of August 11, 2014. 1.9 cm peripheral hypodensity within the mid aspect of the spleen may reflect a tiny infarct or less likely laceration although artifact could appear similar. Trace fluid inferior to the spleen. 2. Moderate cardiomegaly. 3. No bowel obstruction. Normal appendix. Electronically signed by: Boston Harper M.D. 11/02/2016 7:52 PM Dictated Date/Time: 11/02/2016 7:42 PM BILATERAL LOWER EXTREMITY VENOUS DOPPLER FINDINGS: The bilateral common femoral, superficial femoral and popliteal veins were compressible. Augmentation was normal. Flow was shown within the deep calf vessels. IMPRESSION: No evidence of deep venous thrombus within the bilateral lower extremities. Electronically signed by: Boston Harper M.D. 11/02/2016 10:51 PM Dictated Date/Time: 11/02/2016 10:51 PM . EKG EKG performed at 16:48 reviewed and demonstrated normal sinus rhythm at 70/ minute, incomplete right bundle branch block. . Impression Assessment and Plan FEBRILE ILLNESS Two-week history of fever, chills, sweats, malaise, myalgias, arthralgias, and other symptoms as noted. 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 No apparent pneumonia per imaging. CT head demonstrates chronic left maxillary sinusitis- doubt that sinusitis is cause of systemic symptoms. Urinalysis negative. Doubt meningitis. Lyme screen equivocally positive; Western blot pending. Monospot positive. Blood cultures obtained. Patient received ceftriaxone in the ED which will be continued. Add doxycycline. Check tick-borne illness PCR panel. Check EBV PCR. Consult ID. COUGH / HEMOPTYSIS No infiltrates on plain films or CT. CTA chest negative for pulmonary embolism. SPLENOMEGALY / ? SPLENIC INFARCT OR HEMORRHAGE CT demonstrated mild splenomegaly with possible infarct or hemorrhage. No trauma. Consult General Surgery. CARDIOMEGALY Noted on CT. Check echo. DVT PROPHYLAXIS Low-moderate risk for DVT. No anticoagulants because of possible splenic hemorrhage. SCD's. Ambulate. RESUSCITATION STATUS Full resuscitation. DISPOSITION Admit to MedSurg Unit. Expected discharge to home. Family Medicine follow-up with Dr. Loyd. . VTE Prophylaxis VTE Risk Assessment Done? Y/N: Yes Risk Level: Moderate Given or contraindicated: SCD's
[2016-11-02] MEDS ORDERED: ACETAMINOPHEN 325 MG TAB PO PRN (22:15)
[2016-11-02] MEDS ORDERED: ONDANSETRON INJ 2 MG/ML 2 ML VIAL IV PRN (22:15)
--- NOTE | 2016-11-02 22:52 | DIAGNOSTIC IMAGING REPORT ---
BILATERAL LOWER EXTREMITY VENOUS DOPPLER CLINICAL HISTORY: Elevated D-dimer COMPARISON STUDY: No previous studies for comparison. TECHNIQUE: Sonography of the deep venous system of the bilateral lower extremities was performed. Compression and augmentation were evaluated. FINDINGS: The bilateral common femoral, superficial femoral and popliteal veins were compressible. Augmentation was normal. Flow was shown within the deep calf vessels. IMPRESSION: No evidence of deep venous thrombus within the bilateral lower extremities. Electronically signed by: Boston Harper M.D. 11/02/2016 10:51 PM Dictated Date/Time: 11/02/2016 10:51 PM
[2016-11-02 23:00] VITALS: BP 144/81; PULSE 71; TEMP 36.9; O2SAT 94; Ht 190.5 cm; Wt 122.2 kg
[2016-11-02] MEDS ORDERED: CEFTRIAXONE SOD INJ 2000 MG in DEXTROSE 5% 50ML IV ONE (23:45)
[2016-11-02] MEDS: LACTATED RINGER'S 1000ML 1,000 ML IV SCH (23:50)
[2016-11-03 02:23] LABS: URINE APPEARANCE CLEAR (CLEAR); URINE BILIRUBIN NEG (NEG); URINE COLOR YELLOW; URINE NITRITE NEG (NEG); URINE SPECIFIC GRAVITY > 1.045 (1.000-1.030); UROBILINOGEN NEG (NEG); ZZUR CULT IF INDIC CLEAN CATCH NO
[2016-11-03 02:25] LABS: MANUAL MICROSCOPIC REQUIRED? NO; REVIEW REQ? NO
[2016-11-03 03:20] VITALS: BP 155/76; PULSE 74; TEMP 36.8; O2SAT 96
[2016-11-03] MEDS: LACTATED RINGER'S 1000ML 1,000 ML IV SCH ×3 (04:47→18:50)
[2016-11-03 07:12] VITALS: BP 164/83; PULSE 67; TEMP 36.8; O2SAT 94
[2016-11-03 07:39] LABS: HEMATOCRIT 41.3 % (42-52); MEAN CORPUSCULAR HEMOGLOBIN 30.2 pg (25-34); MEAN CORPUSCULAR HGB CONC 32.4 g/dl (32-36); MEAN PLATELET VOLUME 9.7 fL (7.4-10.4); PLATELET COUNT 222 K/uL (130-400); RED BLOOD COUNT 4.44 M/uL (4.7-6.1); WHITE BLOOD COUNT 9.42 K/uL (4.8-10.8)
[2016-11-03 08:10] VITALS: O2SAT 94
[2016-11-03 08:20] LABS: BUN/CREATININE RATIO 13.2 (10-20); CALCIUM 8.2 mg/dl (8.5-10.1); CREATININE 0.96 mg/dl (0.60-1.40); POTASSIUM 4.3 mmol/L (3.5-5.1)
[2016-11-03 08:23] LABS: ALB/GLOB RATIO 0.9 (0.9-2)
[2016-11-03] MEDS: DOXYCYCLINE HYCLATE 100 MG CAP PO SCH ×2 (08:23→20:57)
[2016-11-03 08:26] LABS: COMPLETE YES; EOSINOPHIL % 0.9 %; LYMPH ABS # 1.32 K/uL (1.2-3.4); NEUTROPHILS % 25.4 %; VARIANT LYM ABS # 5.12 K/uL; VARIANT LYMPHOCYTE % 54.4 %
--- NOTE | 2016-11-03 10:55 | Progress Note ---
Internal Med Progress Note Date of Service: Nov 03, 2016. Provider Documentation: SUBJECTIVE: The patient was seen and examined Presented with two-week history of fever, chills, sweats, malaise, myalgias, arthralgias with H/O Tick bite ~2 weeks ago Has had fever at home Clinically mech better since admission OBJECTIVE: Vital Signs-as noted below Exam: General-No distress at rest Eyes-normal ENT-normal Neck-supple Lungs-Clear to aiuscultate bilaterally Heart-Regular,no murmur appreciated Abdomen-Benign Extremities-No edema Neuro-AAOx3 Lab data as noted below. ASSESSMENT & PLAN: FEBRILE ILLNESS Two-week history of fever, chills, sweats, malaise, myalgias, arthralgias, and other symptoms as noted. H/O Tick Bite ~[address] head demonstrates chronic left maxillary sinusitis- doubt that sinusitis is cause of systemic symptoms. Lyme screen equivocally positive; Western blot pending. Monospot positive with mild Splenomegaly Panculture-pending Patient received ceftriaxone in the ED which will be continued..Add doxycycline. Check EBV PCR. Consult ID-awaited . Clinically a lot better COUGH / HEMOPTYSIS No infiltrates on plain films or CT. CTA chest negative for pulmonary embolism and or consolidation No more episode SPLENOMEGALY / ? SPLENIC INFARCT OR HEMORRHAGE CT demonstrated mild splenomegaly with possible infarct or hemorrhage. Likely secondary to Infectious Mononucleosis Consult General Surgery.-awaited CARDIOMEGALY Noted on CT. Check echo Doubt any Endocarditis . DVT PROPHYLAXIS Low-moderate risk for DVT. No anticoagulants because of possible splenic hemorrhage. SCD's. Ambulate. RESUSCITATION STATUS Full resuscitation. DISPOSITION Admit to MedSurg Unit. Expected discharge to home. Family Medicine follow-up with Dr. Loyd. . DVT PROPHYLAXIS [] DISPOSITION [] Vital Signs: Date Time Temp Pulse Resp B/P (MAP) Pulse Ox O2 Delivery O2 Flow Rate FiO2 11/03/16 08:10 94 Room Air 11/03/16 07:12 36.8 67 18 164/83 (110) 94 Room Air 11/03/16 03:20 36.8 74 20 155/76 (102) 96 Room Air 11/02/16 23:00 36.9 71 20 144/81 94 Room Air 11/02/16 22:34 36.7 77 16 125/76 96 11/02/16 22:27 77 16 125/76 96 Room Air 11/02/16 21:40 75 16 125/77 96 Room Air 11/02/16 18:51 75 16 125/76 96 Room Air 11/02/16 15:42 36.7 86 16 133/88 95 Room Air Lab Results: Results Past 24 Hours Test 11/02/16 16:43 11/03/16 02:15 11/03/16 07:17 Range/Units White Blood Count 11.11 9.42 4.8-10.8 K/uL Red Blood Count 4.87 4.44 4.7-6.1 M/uL Hemoglobin 15.0 13.4 14.0-18.0 g/dL Hematocrit 45.2 41.3 42-52 % Mean Corpuscular Volume 92.8 93.0 80-100 fL Mean Corpuscular Hemoglobin 30.8 30.2 25-34 pg Mean Corpuscular Hemoglobin Concent 33.2 32.4 32-36 g/dl Platelet Count 224 222 130-400 K/uL Mean Platelet Volume 9.8 9.7 7.4-10.4 fL Neutrophils (%) (Auto) 20.5 % Lymphocytes (%) (Auto) 64.0 % Monocytes (%) (Auto) 11.8 % Eosinophils (%) (Auto) 1.0 % Basophils (%) (Auto) 2.3 % Neutrophils # (Auto) 2.29 1.4-6.5 K/uL Lymphocytes # (Auto) 7.11 1.2-3.4 K/uL Monocytes # (Auto) 1.31 0.11-0.59 K/uL Eosinophils # (Auto) 0.11 0-0.5 K/uL Basophils # (Auto) 0.25 0-0.2 K/uL RDW Standard Deviation 45.0 45.7 36.4-46.3 fL RDW Coefficient of Variation 13.2 13.3 11.5-14.5 % Immature Granulocyte % (Auto) 0.4 % Immature Granulocyte # (Auto) 0.04 0.00-0.02 K/uL Prothrombin Time 11.3 9.0-12.0 SECONDS Prothromb Time International Ratio 1.1 0.9-1.1 Activated Partial Thromboplast Time 27.9 21.0-31.0 SECONDS Partial Thromboplastin Ratio 1.1 D-Dimer 2510 0-500 ug/L FEU Sodium Level 139 142 136-145 mmol/L Potassium Level 4.6 4.3 3.5-5.1 mmol/L Chloride Level 107 107 98-107 mmol/L Carbon Dioxide Level 29 30 21-32 mmol/L Anion Gap 3.0 5.0 3-11 mmol/L Blood Urea Nitrogen 13 13 7-18 mg/dl Creatinine 1.10 0.96 0.60-1.40 mg/dl Est Creatinine Clear Calc Drug Dose 119.4 136.9 ml/min Estimated GFR () 93.5 110.2 Estimated GFR (Non- 80.6 95.1 BUN/Creatinine Ratio 12.1 13.2 10-20 Random Glucose 102 109 70-99 mg/dl Calcium Level 8.9 8.2 8.5-10.1 mg/dl Total Bilirubin 0.3 0.2 0.2-1 mg/dl Direct Bilirubin < 0.1 0-0.2 mg/dl Aspartate Amino Transf (AST/SGOT) 74 62 15-37 U/L Alanine Aminotransferase (ALT/SGPT) 121 102 12-78 U/L Alkaline Phosphatase 67 54 45-117 U/L Total Creatine Kinase 60 39-308 U/L Creatine Kinase MB < 0.5 0.5-3.6 ng/ml Creatine Kinase MB Ratio 0-3.0 Troponin I < 0.015 0-0.045 ng/ml C-Reactive Protein 1.35 0-0.29 mg/dl Total Protein 7.4 6.4 6.4-8.2 gm/dl Albumin 3.5 3.0 3.4-5.0 gm/dl Lipase 204 73-393 U/L Lyme Disease IgG Antibody NEG NEG Lyme Disease IgM Antibody EQUIVOCAL NEG Monoscreen POS NEG Urine Color YELLOW Urine Appearance CLEAR CLEAR Urine pH 5.0 4.5-7.5 Urine Specific Jones > 1.045 1.000-1.030 Urine Protein NEG NEG Urine Glucose (UA) NEG NEG Urine Ketones NEG NEG Urine Occult Blood NEG NEG Urine Nitrite NEG NEG Urine Bilirubin NEG NEG Urine Urobilinogen NEG NEG Urine Leukocyte Esterase NEG NEG Urine WBC (Auto) 1-5 0-5 /hpf Urine RBC (Auto) 0-4 0-4 /hpf Urine Hyaline Casts (Auto) 0 0-5 /lpf Urine Epithelial Cells (Auto) 5-10 0-5 /lpf Urine Bacteria (Auto) NEG NEG Neutrophils % (Manual) 25.4 % Lymphocytes % (Manual) 14.0 % Variant Lymphocytes % (manual) 54.4 % Monocytes % (Manual) 5.3 % Eosinophils % (Manual) 0.9 % Neutrophils # (Manual) 2.39 1.4-6.5 K/uL Total Absolute Neutrophils 2.39 1.4-6.5 K/uL Lymphocytes # (Manual) 1.32 1.2-3.4 K/uL Absolute Variant Lymphocytes 5.12 K/uL Total Absolute Lymphocytes 6.44 1.2-3.4 K/uL Monocytes # (Manual) 0.50 0.11-0.59 K/uL Eosinophils # (Manual) 0.08 0-0.5 K/uL Red Blood Cell Morphology Unremarkable Globulin 3.4 2.5-4.0 gm/dl Albumin/Globulin Ratio 0.9 0.9-2
[2016-11-03] MEDS ORDERED: PERFLUTREN LIPID MICROSPHERE (DEFINITY) IV ONE (11:35)
[2016-11-03 15:21] VITALS: BP 158/88; PULSE 68; TEMP 36.7; O2SAT 96
--- NOTE | 2016-11-03 18:44 | Medical Consult ---
Consultation Date of Consultation: Nov 03, 2016. Attending Physician: Temitope Tenorio M.D. Reason for Consultation: Febrile illness History of Present Illness 46-year-old male in prior good health was admitted to the hospital after 2 week history of persistent fever, chills, sweats, severe myalgias and arthralgias, headache, dry cough with occasional hemoptysis, and some anorexia. He was seen at the walk-in clinic and sent to the emergency room for further management. He has been found to have positive Monospot, mild leukocytosis, equivocal IgM Lyme serology, and splenomegaly with possible splenic infarct on CT of the abdomen, read by me. [place] occasional tick exposure. According to patient is , he has been complaining of vague left upper quadrant pain since May of this year. Has been attributed to possible renal colic. No other workup has been done, but Lyme serology was -1 month ago. Patient has been started empirically on IV ceftriaxone and oral doxycycline, and feels significantly better today compared to admission. Past Medical/Surgical History Medical Problems: (1) Allergic reaction Status: Acute (2) Elevated liver function tests Status: Acute (3) Splenic laceration Status: Acute (4) Splenomegaly Status: Acute Medical Problems: (1) History of colonic diverticulitis Surgical Problems: (1) Status post partial colectomy Family History Hypertension FATHER Systemic lupus erythematosus MOTHER Social History Smoking Status: Unknown if Ever Smoked Alcohol Use: socially Drug Use: none Marital Status: Occupation Status: employed Allergies Coded Allergies: Ciprofloxacin (Verified Allergy, Intermediate, rash. chest tightness. SOB. dizziness, 04/24/16) Metronidazole (Verified Allergy, Intermediate, rash. chest tightness. SOB. dizziness, 04/24/16) Sulfamethoxazole w/Trimethoprim (Verified Allergy, Intermediate, RASH, ) Penicillins (Verified Allergy, Unknown, 04/24/16) Current Inpatient Medications Current Inpatient Medications Medications (Trade) Dose Ordered Sig/Andre Route Start Time Stop Time Status Last Admin Dose Admin Ioversol (Optiray 320) 116 ml UD PRN IV 11/02/16 19:30 11/06/16 19:29 Acetaminophen (Tylenol Tab) 650 mg Q4H PRN PO 11/02/16 22:15 12/02/16 22:14 Ondansetron HCl (Zofran Inj) 4 mg Q6H PRN IV 11/02/16 22:15 12/02/16 22:14 Lactated Ringer's 1,000 ml @ 150 mls/hr Q6H40M IV 11/02/16 22:15 12/02/16 22:14 11/03/16 11:56 150 MLS/HR Ceftriaxone Sodium 2000 mg/ Dextrose 70 ml @ 100 mls/hr DAILY@2200 IV 11/03/16 22:00 11/13/16 21:59 Doxycycline Hyclate (Vibramycin Cap) 100 mg BID PO 11/03/16 09:00 11/13/16 08:59 11/03/16 08:23 100 MG Review of Systems Constitutional: + fever, + chills, + sweats, + weakness, + fatigue Eyes: No problem reported ENT: No problem reported Respiratory: + cough, + hemoptysis Cardiovascular: No problem reported Abdomen: + nausea, + diarrhea Musculoskeletal: + joint pain, + muscle pain Genitourinary - Male: No problem reported Neurologic: No problem reported Psychiatric: No problem reported Endocrine: No problem reported Hematologic / Lymphatic: No problem reported Integumentary: No problem reported Allergic / Immunologic: No problem reported Physical Exam Date Time Temp Pulse Resp B/P (MAP) Pulse Ox O2 Delivery O2 Flow Rate FiO2 11/03/16 15:52 Room Air 11/03/16 15:21 36.7 68 20 158/88 (111) 96 Room Air 11/03/16 08:10 94 Room Air 11/03/16 07:12 36.8 67 18 164/83 (110) 94 Room Air 11/03/16 03:20 36.8 74 20 155/76 (102) 96 Room Air 11/02/16 23:00 36.9 71 20 144/81 94 Room Air 11/02/16 22:34 36.7 77 16 125/76 96 11/02/16 22:27 77 16 125/76 96 Room Air 11/02/16 21:40 75 16 125/77 96 Room Air 11/02/16 18:51 75 16 125/76 96 Room Air General Appearance: WD/WN, no apparent distress Head: normocephalic, atraumatic Eyes: normal inspection, EOMI, sclerae normal ENT: normal ENT inspection, hearing grossly normal, pharynx normal Neck: supple, no adenopathy, thyroid normal, trachea midline Respiratory/Chest: chest non-tender, lungs clear, normal breath sounds, no respiratory distress Cardiovascular: regular rate, rhythm, no gallop, no murmur Abdomen/GI: normal bowel sounds, non tender, soft, + splenomegaly Back: normal inspection, no CVA tenderness Extremities/Musculoskelatal: normal inspection, no calf tenderness, non-tender Neurologic/Psych: alert, normal mood/affect, oriented x 3 Skin: normal color, warm/dry, no rash Lymphatic: no adenopathy ( .) Laboratory Results Last 24 Hours Test 11/03/16 02:15 11/03/16 07:17 Urine Color YELLOW Urine Appearance CLEAR Urine pH 5.0 Urine Specific [place] > 1.045 Urine Protein NEG Urine Glucose (UA) NEG Urine Ketones NEG Urine Occult Blood NEG Urine Nitrite NEG Urine Bilirubin NEG Urine Urobilinogen NEG Urine Leukocyte Esterase NEG Urine WBC (Auto) 1-5 /hpf Urine RBC (Auto) 0-4 /hpf Urine Hyaline Casts (Auto) 0 /lpf Urine Epithelial Cells (Auto) 5-10 /lpf Urine Bacteria (Auto) NEG White Blood Count 9.42 K/uL Red Blood Count 4.44 M/uL Hemoglobin 13.4 g/dL Hematocrit 41.3 % Mean Corpuscular Volume 93.0 fL Mean Corpuscular Hemoglobin 30.2 pg Mean Corpuscular Hemoglobin Concent 32.4 g/dl Platelet Count 222 K/uL Mean Platelet Volume 9.7 fL RDW Standard Deviation 45.7 fL RDW Coefficient of Variation 13.3 % Neutrophils % (Manual) 25.4 % Lymphocytes % (Manual) 14.0 % Variant Lymphocytes % (manual) 54.4 % Monocytes % (Manual) 5.3 % Eosinophils % (Manual) 0.9 % Neutrophils # (Manual) 2.39 K/uL Total Absolute Neutrophils 2.39 K/uL Lymphocytes # (Manual) 1.32 K/uL Absolute Variant Lymphocytes 5.12 K/uL Total Absolute Lymphocytes 6.44 K/uL Monocytes # (Manual) 0.50 K/uL Eosinophils # (Manual) 0.08 K/uL Red Blood Cell Morphology Unremarkable Sodium Level 142 mmol/L Potassium Level 4.3 mmol/L Chloride Level 107 mmol/L Carbon Dioxide Level 30 mmol/L Anion Gap 5.0 mmol/L Blood Urea Nitrogen 13 mg/dl Creatinine 0.96 mg/dl Est Creatinine Clear Calc Drug Dose 136.9 ml/min Estimated GFR () 110.2 Estimated GFR (Non- 95.1 BUN/Creatinine Ratio 13.2 Random Glucose 109 mg/dl Calcium Level 8.2 mg/dl Total Bilirubin 0.2 mg/dl Aspartate Amino Transf (AST/SGOT) 62 U/L Alanine Aminotransferase (ALT/SGPT) 102 U/L Alkaline Phosphatase 54 U/L Total Protein 6.4 gm/dl Albumin 3.0 gm/dl Globulin 3.4 gm/dl Albumin/Globulin Ratio 0.9 Assessment & Plan 46-year-old male with 2 week febrile illness with positive Monospot and splenomegaly, equivocal IgM Lyme serology,but rapid response to initiation of IV and oral antibiotics. Acute Judd-Merida virus infection very unusual in 46- year-old male, and suspect that the Monospot is a false positive. Clinical picture apart from respiratory complaints and splenomegaly are consistent with early Lyme disease as is response to antibiotic therapy. Patient could also have another infections such as anaplasma, CMV, or toxoplasmosis causing splenomegaly. I have ordered additional serology is, but if patient continues to feel well, would consider discharge home on oral doxycycline. Discussed with hospitalist service. Will follow.
[2016-11-03 19:35] VITALS: BP 148/81; PULSE 67; TEMP 36.9; O2SAT 96
[2016-11-03 20:15] VITALS: O2SAT 96
[2016-11-03] MEDS ORDERED: CEFTRIAXONE SOD INJ 2,000 MG in DEXTROSE 5% 50ML 50 ML IV SCH (22:00)
--- NOTE | 2016-11-03 22:15 | SURGICAL CONSULTATION ---
DATE OF CONSULTATION: 11/03/2016 I have been asked by Dr. Van to see this 46-year-old male, who is admitted with a complaint of myalgia, arthralgia, headaches, fever and chills. He states that this all began a few weeks ago, but had been increasing in intensity. 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 He had difficulty getting out of bed in the morning. He, subsequently, has been found to have Lyme's disease and mononucleosis. He had some left flank pain that began back in May. Initially, it was quite severe, but then as time has gone on, it has decreased in intensity, although it is not completely resolved. He does not think he had trauma to that area. There was no abdominal pain component to it. He had no associated nausea or vomiting. He had no change in his bowel habits. He denied diarrhea or constipation. There was no melena or hematochezia. He did have some chest pain, at times, along with the myalgias or arthralgias. There was no shortness of breath. He did have a cough that had some blood in it on occasion. He underwent a CT scan of the abdomen and pelvis that showed mild splenomegaly that did develop since 08/11/2014 with a probable 1.9-cm peripheral hypodensity within the anterior aspect of the mid pole of the spleen with trace fluid inferior to the spleen. It may be related to either a small capsular laceration versus an infarct. There was moderate cardiomegaly, but no evidence of bowel obstruction. PAST MEDICAL HISTORY: For hypertension at one time for which he was medicated, but then he did not require the medicine anymore. He has had diverticulitis in the past. PAST SURGICAL HISTORY: For left knee arthroscopy for meniscus repair. He had a UPPP and a sigmoid colon resection for diverticulitis. MEDICATIONS AT HOME: None. ALLERGIES: CIPROFLOXACIN, METRONIDAZOLE, PENICILLIN AND BACTRIM. SOCIAL HISTORY: He does not smoke or chew tobacco and drinks alcohol socially. PHYSICAL EXAMINATION: GENERAL: Reveals an overweight white male, who appears in no acute distress. VITAL SIGNS: Blood pressure 158/80, heart rate 60, respirations 20, temperature is 36.7, pulse oximetry is 96% on room air. HEENT: Reveals the sclerae to be anicteric. Mucous membranes are moist. NECK: Supple, with no adenopathy. LUNGS: Clear. HEART: Regular. BACK: Has no spinal tenderness, but there is some mild tenderness along the left side of his back in the CV area extending down towards the iliac crest. ASBDOMEN: His abdomen has normoactive bowel sounds, is soft, nondistended, nontender with no adenopathy. EXTREMITIES: Extremities reveal no edema. LABORATORY DATA: WBC 9.42, which is down from 11.11, hemoglobin is 13.4 and 41.3, platelet count 222,000. Sodium 142, potassium 4.3, chloride 107, CO2 30, BUN 13, creatinine 0.96, glucose 109, total bilirubin 0.2, AST 62, ALT 102, alkaline phosphatase 54. RADIOLOGY: CT scan as per HPI. He also had a CT scan of the thorax that showed no pulmonary emboli. There was moderate cardiomegaly, but no pericardial effusion and bilateral lower pole changes favoring atelectasis. He had a head CT that showed no acute intracranial findings. There did appear to be some sinusitis in the left maxillary area. Venous Doppler study of his legs revealed no evidence of deep venous thrombus within the bilateral lower extremities. ASSESSMENT AND PLAN: This patient's fevers and chills, arthralgia, myalgia, all are most likely related to his Lyme's disease and mononucleosis. The splenic issue may be related to either an infarct or a small capsular laceration with splenomegaly due to the mononucleosis, but he is hemodynamically stable. The pain is actually decreasing and it began back in May, which was before the mononucleosis. I do not feel there is any need for surgical intervention at this time. We will continue to follow with you, however. Thank you for allowing me to see this patient and participate in his care. ELENA
[2016-11-04 00:07] VITALS: BP 157/81; PULSE 66; TEMP 36.9; O2SAT 96
[2016-11-04] MEDS: LACTATED RINGER'S 1000ML 1,000 ML IV SCH ×2 (00:47→06:03)
[2016-11-04 01:22] VITALS: O2SAT 96
[2016-11-04 03:49] VITALS: BP 113/81; PULSE 65; TEMP 36.7; O2SAT 97
[2016-11-04 07:22] VITALS: BP 138/73; PULSE 65; TEMP 36.5; O2SAT 95
[2016-11-04 07:49] LABS: HEMATOCRIT 42.2 % (42-52); MEAN CELL VOLUME 92.3 fL (80-100); MEAN CORPUSCULAR HEMOGLOBIN 29.8 pg (25-34); MEAN CORPUSCULAR HGB CONC 32.2 g/dl (32-36); MEAN PLATELET VOLUME 9.6 fL (7.4-10.4); PLATELET COUNT 234 K/uL (130-400); RED BLOOD COUNT 4.57 M/uL (4.7-6.1); WHITE BLOOD COUNT 11.05 K/uL (4.8-10.8)
[2016-11-04 08:10] LABS: ALT/SGPT 111 U/L (12-78); BLOOD UREA NITROGEN 10 mg/dl (7-18); BUN/CREATININE RATIO 10.7 (10-20); CALCIUM 8.5 mg/dl (8.5-10.1); CARBON DIOXIDE 30 mmol/L (21-32); CHLORIDE 104 mmol/L (98-107); CREATININE 0.94 mg/dl (0.60-1.40); GLUCOSE 99 mg/dl (70-99); MAGNESIUM 1.9 mg/dl (1.8-2.4); POTASSIUM 4.1 mmol/L (3.5-5.1); SODIUM 139 mmol/L (136-145)
[2016-11-04 08:13] LABS: ALKALINE PHOSPHATASE 59 U/L (45-117); AST/SGOT 69 U/L (15-37)
--- NOTE | 2016-11-04 08:16 | ECHOCARDIOGRAM REPORT ---
*NOTICE TO RECEIVING REPUBLICAN AGENCY This information is strictly Confidential and protected under [place] law. [place] law prohibits you from making any further disclosure of this information unless further disclosure is expressly permitted by the written consent of the person to whom it pertains or is authorized by law. A general authorization for the release of medical or other information is not sufficient for this purpose. Hospital accepts no responsibility if the information is made available to any other person, INCLUDING THE PATIENT. Interpretation Summary * Name: NATACHA DRAKE Study Date: 11/03/2016 11:00 AM BP: 154/73 mmHg * Patient Location: .[id number]\W258\S\1 HR: 66 * : 1970 (M/d/yyyy) Gender: Male Height: 75 in * Age: 46 yrs Ethnicity: CA Weight: 269 lb * Ordering Physician: Berhane Vna * Referring Physician: Self, Referred * Performed By: Shiva Gusman RDCS * * Reason For Study: Chest pain * BSA: 2.5 m2 * -- Conclusions -- * Normal LV chamber size with mild concentric LVH. * Normal LV systolic function, EF 55-60%. * No segmental left ventricular wall motion abnormalities are noted. * Grade I diastolic dysfunction. * Poorly visualized valvular structures with no significant stenosis or regurgitation by Doppler. * Mild left atrial enlargement. Procedure Details * A complete two-dimensional transthoracic echocardiogram was performed (2D, M-mode, Doppler and color flow Doppler). * The study was technically difficult. * The study was technically difficult, but visualization was adequate with the administration of Definity ultrasound contrast. * A contrast injection of Definity was performed to improve assessment of LV function. * Contrast was injected into an intravenous site in the right arm. * One vial of Definity ultrasound contrast was diluted in normal saline to a total volume of 10 ml. A total of '3' ml of solution was administered during imaging. * Lot # [id number] of Definity utilized for procedure. * Expiration date [id number]. * The attending nurse who injected the contrast agent was DYLAN Prado. Left Ventricle * The left ventricle is normal in size. * There is mild concentric left ventricular hypertrophy. * Left ventricular systolic function is normal. * No segmental left ventricular wall motion abnormalities are noted. * Ejection Fraction = 55-60%. * The left ventricular wall motion is normal. Right Ventricle * The right ventricular cavity size is normal (basal dimension <4.2 cm in right ventricular apical 4-chamber view). * The right ventricular systolic function is normal as assessed by tricuspid annular plane systolic excursion (TAPSE) (normal >1.5 cm). Atria * The left atrium is mildly dilated. * Right atrial size is normal. * No ASD detected; PFO is not assessed. Mitral Valve * The mitral valve is not well visualized. * There is no mitral valve stenosis. * There is no mitral regurgitation noted. Tricuspid Valve * The tricuspid valve is not well visualized. * There is no tricuspid stenosis. * No tricuspid regurgitation. Aortic Valve * The aortic valve is trileaflet. * The aortic valve is not well visualized. * No hemodynamically significant valvular aortic stenosis. * There is no significant aortic regurgitation. Pulmonic Valve * The pulmonary valve is not well seen, but the Doppler examination is normal without significant regurgitation or stenosis. Great Vessels * The aortic root is normal size. Pericardium/Pleural * There is no pericardial effusion. Left Ventricular Diastolic Function * Grade I diastolic dysfunction, (abnormal relaxation pattern). MMode 2D Measurements and Calculations IVSd 1.2 cm IVSs 1.9 cm LVIDd 6.1 cm LVIDs 3.6 cm LVPWd 1.2 cm LVPWs 2.0 cm IVS/LVPW 1.0 FS 40.6 % EDV(Teich) 185.7 ml ESV(Teich) 54.9 ml EF(Teich) 70.5 % EDV(cubed) 225.0 ml ESV(cubed) 47.1 ml EF(cubed) 79.1 % % IVS thick 59.0 % % LVPW thick 72.3 % LV mass(C)d 315.0 grams LV mass(C)dI 126.6 grams/m\S\2 LV mass(C)s 316.2 grams LV mass(C)sI 127.1 grams/m\S\2 SV(Teich) 130.8 ml SI(Teich) 52.6 ml/m\S\2 SV(cubed) 177.9 ml SI(cubed) 71.5 ml/m\S\2 EPSS 0.73 cm Ao root diam 3.8 cm Ao root area 11.4 cm\S\2 ACS 2.4 cm LA dimension 4.2 cm asc Aorta Diam 4.2 cm LA/Ao 1.1 LVOT diam 2.5 cm LVOT area 5.0 cm\S\2 LVAd ap4 48.2 cm\S\2 LVLd ap4 10.0 cm EDV(MOD-sp4) 193.0 ml LVAs ap4 30.0 cm\S\2 LVLs ap4 8.8 cm ESV(MOD-sp4) 82.9 ml EF(MOD-sp4) 57.0 % LVAd ap2 40.6 cm\S\2 LVLd ap2 9.2 cm EDV(MOD-sp2) 146.0 ml LVAs ap2 22.3 cm\S\2 LVLs ap2 6.9 cm ESV(MOD-sp2) 60.4 ml EF(MOD-sp2) 58.6 % SV(MOD-sp4) 110.1 ml SI(MOD-sp4) 44.2 ml/m\S\2 SV(MOD-sp2) 85.6 ml SI(MOD-sp2) 34.4 ml/m\S\2 Doppler Measurements and Calculations MV E max ashvin 75.9 cm/sec MV A max ashvin 74.7 cm/sec MV E/A 1.0 MV dec time 0.19 sec Ao V2 max 182.2 cm/sec Ao max PG 13.3 mmHg Ao max PG (full) 4.7 mmHg NICOLE(V,A) 3.9 cm\S\2 NICOLE(V,D) 3.9 cm\S\2 LV V1 max PG 8.6 mmHg LV V1 max 145.1 cm/sec PA V2 max 124.9 cm/sec PA max PG 6.2 mmHg PA acc slope 404.3 cm/sec\S\2 PA acc time 0.16 sec PI end-d ashvin 97.7 cm/sec PA pr(Accel) 6.1 mmHg
[2016-11-04] MEDS: DOXYCYCLINE HYCLATE 100 MG CAP PO SCH (08:34)
--- NOTE | 2016-11-04 10:02 | Surgery Progress Note ---
Surgery Progress Note Date of Service Nov 04, 2016. Subjective + feeling well, + diet (regular diet), No chest pain, No SOB, No nausea, No vomiting no abdominal pain left flank pain improving no fevers or chills or sweats Objective Vital Signs: Date Time Temp Pulse Resp B/P (MAP) Pulse Ox O2 Delivery O2 Flow Rate FiO2 11/04/16 07:22 36.5 65 18 138/73 (94) 95 11/04/16 03:49 36.7 65 16 113/81 (92) 97 Room Air 11/04/16 01:22 96 Room Air 11/04/16 00:07 36.9 66 16 157/81 (106) 96 Room Air 11/03/16 20:15 96 Room Air 11/03/16 19:35 36.9 67 20 148/81 (103) 96 Room Air 11/03/16 15:52 Room Air 11/03/16 15:21 36.7 68 20 158/88 (111) 96 Room Air General Appearance: WD/WN, no apparent distress Head: normocephalic, atraumatic Neck: trachea midline Respiratory/Chest: no respiratory distress, no accessory muscle use Abdomen: non tender, non distended, soft Laboratory Results: Results Past 24 Hours Test 11/04/16 07:26 11/04/16 09:31 Range/Units White Blood Count 11.05 4.8-10.8 K/uL Red Blood Count 4.57 4.7-6.1 M/uL Hemoglobin 13.6 14.0-18.0 g/dL Hematocrit 42.2 42-52 % Mean Corpuscular Volume 92.3 80-100 fL Mean Corpuscular Hemoglobin 29.8 25-34 pg Mean Corpuscular Hemoglobin Concent 32.2 32-36 g/dl RDW Standard Deviation 44.5 36.4-46.3 fL RDW Coefficient of Variation 13.1 11.5-14.5 % Platelet Count 234 130-400 K/uL Mean Platelet Volume 9.6 7.4-10.4 fL Sodium Level 139 136-145 mmol/L Potassium Level 4.1 3.5-5.1 mmol/L Chloride Level 104 98-107 mmol/L Carbon Dioxide Level 30 21-32 mmol/L Anion Gap 5.0 3-11 mmol/L Blood Urea Nitrogen 10 7-18 mg/dl Creatinine 0.94 0.60-1.40 mg/dl Est Creatinine Clear Calc Drug Dose 139.8 ml/min Estimated GFR () 113.0 Estimated GFR (Non- 97.5 BUN/Creatinine Ratio 10.7 10-20 Random Glucose 99 70-99 mg/dl Calcium Level 8.5 8.5-10.1 mg/dl Phosphorus Level 3.0 2.5-4.9 mg/dl Magnesium Level 1.9 1.8-2.4 mg/dl Total Bilirubin 0.4 0.2-1 mg/dl Direct Bilirubin < 0.1 0-0.2 mg/dl Aspartate Amino Transf (AST/SGOT) 69 15-37 U/L Alanine Aminotransferase (ALT/SGPT) 111 12-78 U/L Alkaline Phosphatase 59 45-117 U/L Total Protein 6.8 6.4-8.2 gm/dl Albumin 3.1 3.4-5.0 gm/dl Assessment & Plan Possible Splenic Infarct or Splenic capsule laceration - vitals stable - H&H stable - no abdominal pain - flank pain improving - overall feeling better Lyme disease Mononucleosis Plan: Continue current medical management Continue regular diet No surgical indication at this time, abdomen benign. Our services signing off Discussed this patient with Dr. Eng who agrees with above.
--- NOTE | 2016-11-04 10:35 | Progress Note ---
Internal Med Progress Note Date of Service: Nov 04, 2016. Provider Documentation: SUBJECTIVE: The patient was seen and examined Presented with two-week history of fever, chills, sweats, malaise, myalgias, arthralgias with H/O Tick bite ~2 weeks ago Has had fever at home Denies any symptoms now Wants to go home today OBJECTIVE: Vital Signs-as noted below Exam: General-No distress at rest Eyes-normal ENT-normal Neck-supple Lungs-Clear to auscultate bilaterally Heart-Regular,no murmur appreciated Abdomen-Benign .no masses and nontender Extremities-No edema No arthralgia and or arthritis noted No rash Neuro-AAOx3 Lab data as noted below. ASSESSMENT & PLAN: FEBRILE ILLNESS-Likely Secondary top Lyme Disease Two-week history of fever, chills, sweats, malaise, myalgias, arthralgias, and other symptoms as noted. H/O Tick Bite ~[address] head demonstrates chronic left maxillary sinusitis- doubt that sinusitis is cause of systemic symptoms. Lyme screen equivocally positive; Western blot pending. Monospot positive with mild Splenomegaly Panculture-pending Patient received ceftriaxone in the ED which will be continued..Add doxycycline. Check EBV PCR. Consult ID-appreciate input. Clinically a lot better Will discharge home today COUGH / HEMOPTYSIS-resolved No infiltrates on plain films or CT. CTA chest negative for pulmonary embolism and or consolidation No more episode SPLENOMEGALY / ? SPLENIC INFARCT OR HEMORRHAGE CT demonstrated mild splenomegaly with possible infarct or hemorrhage. Likely secondary to Infectious Mononucleosis Consult General Surgery.-appreciate input No surgical intervention CARDIOMEGALY Noted on CT. Check echo ::: Normal LV chamber size with mild concentric LVH. * Normal LV systolic function, EF 55-60%. * No segmental left ventricular wall motion abnormalities are noted. * Grade I diastolic dysfunction. * Poorly visualized valvular structures with no significant stenosis or regurgitation by Doppler. * Mild left atrial enlargement. Doubt any Endocarditis . DVT PROPHYLAXIS Low-moderate risk for DVT. No anticoagulants because of possible splenic hemorrhage. SCD's. Ambulate. RESUSCITATION STATUS Full resuscitation. DISPOSITION Admit to MedSurg Unit. Expected discharge to home. Family Medicine follow-up with Dr. Loyd. Discharge home today Vital Signs: Date Time Temp Pulse Resp B/P (MAP) Pulse Ox O2 Delivery O2 Flow Rate FiO2 11/04/16 07:22 36.5 65 18 138/73 (94) 95 11/04/16 03:49 36.7 65 16 113/81 (92) 97 Room Air 11/04/16 01:22 96 Room Air 11/04/16 00:07 36.9 66 16 157/81 (106) 96 Room Air 11/03/16 20:15 96 Room Air 11/03/16 19:35 36.9 67 20 148/81 (103) 96 Room Air 11/03/16 15:52 Room Air 11/03/16 15:21 36.7 68 20 158/88 (111) 96 Room Air Lab Results: Results Past 24 Hours Test 11/04/16 07:26 11/04/16 09:31 Range/Units White Blood Count 11.05 4.8-10.8 K/uL Red Blood Count 4.57 4.7-6.1 M/uL Hemoglobin 13.6 14.0-18.0 g/dL Hematocrit 42.2 42-52 % Mean Corpuscular Volume 92.3 80-100 fL Mean Corpuscular Hemoglobin 29.8 25-34 pg Mean Corpuscular Hemoglobin Concent 32.2 32-36 g/dl RDW Standard Deviation 44.5 36.4-46.3 fL RDW Coefficient of Variation 13.1 11.5-14.5 % Platelet Count 234 130-400 K/uL Mean Platelet Volume 9.6 7.4-10.4 fL Sodium Level 139 136-145 mmol/L Potassium Level 4.1 3.5-5.1 mmol/L Chloride Level 104 98-107 mmol/L Carbon Dioxide Level 30 21-32 mmol/L Anion Gap 5.0 3-11 mmol/L Blood Urea Nitrogen 10 7-18 mg/dl Creatinine 0.94 0.60-1.40 mg/dl Est Creatinine Clear Calc Drug Dose 139.8 ml/min Estimated GFR () 113.0 Estimated GFR (Non- 97.5 BUN/Creatinine Ratio 10.7 10-20 Random Glucose 99 70-99 mg/dl Calcium Level 8.5 8.5-10.1 mg/dl Phosphorus Level 3.0 2.5-4.9 mg/dl Magnesium Level 1.9 1.8-2.4 mg/dl Total Bilirubin 0.4 0.2-1 mg/dl Direct Bilirubin < 0.1 0-0.2 mg/dl Aspartate Amino Transf (AST/SGOT) 69 15-37 U/L Alanine Aminotransferase (ALT/SGPT) 111 12-78 U/L Alkaline Phosphatase 59 45-117 U/L Total Protein 6.8 6.4-8.2 gm/dl Albumin 3.1 3.4-5.0 gm/dl
--- NOTE | 2016-11-04 10:42 | Infectious Disease Progress Nt ---
Progress Note Date of Service Nov 04, 2016. Subjective Pt evaluation today including: conversation w/ patient, physical exam, chart review, lab review, review of studies, conversation w/ remediation consultant, review of inpatient medication list Feels well. No fever. Arthralgias and myalgias better. No new complaints. All Other Systems: Reviewed and Negative Medications Current Inpatient Medications Medications (Trade) Dose Ordered Sig/Andre Route Start Time Stop Time Status Last Admin Dose Admin Ioversol (Optiray 320) 116 ml UD PRN IV 11/02/16 19:30 11/06/16 19:29 Acetaminophen (Tylenol Tab) 650 mg Q4H PRN PO 11/02/16 22:15 12/02/16 22:14 Ondansetron HCl (Zofran Inj) 4 mg Q6H PRN IV 11/02/16 22:15 12/02/16 22:14 Lactated Ringer's 1,000 ml @ 150 mls/hr Q6H40M IV 11/02/16 22:15 12/02/16 22:14 11/04/16 06:03 150 MLS/HR Ceftriaxone Sodium 2000 mg/ Dextrose 70 ml @ 100 mls/hr DAILY@2200 IV 11/03/16 22:00 11/13/16 21:59 11/03/16 22:24 100 MLS/HR Doxycycline Hyclate (Vibramycin Cap) 100 mg BID PO 11/03/16 09:00 11/13/16 08:59 11/04/16 08:34 100 MG Objective Vital Signs Date Time Temp Pulse Resp B/P (MAP) Pulse Ox O2 Delivery O2 Flow Rate FiO2 11/04/16 07:22 36.5 65 18 138/73 (94) 95 11/04/16 03:49 36.7 65 16 113/81 (92) 97 Room Air 11/04/16 01:22 96 Room Air 11/04/16 00:07 36.9 66 16 157/81 (106) 96 Room Air 11/03/16 20:15 96 Room Air 11/03/16 19:35 36.9 67 20 148/81 (103) 96 Room Air 11/03/16 15:52 Room Air 11/03/16 15:21 36.7 68 20 158/88 (111) 96 Room Air Physical Exam General Appearance: WD/WN, no apparent distress Eyes: normal inspection, sclerae normal ENT: normal ENT inspection, pharynx normal Neck: supple, trachea midline, + adenopathy present Respiratory/Chest: lungs clear, normal breath sounds, no respiratory distress Cardiovascular: regular rate, rhythm, no gallop, no murmur Abdomen: normal bowel sounds, non tender, soft, + splenomegaly Extremities: non-tender, no calf tenderness Neurologic/Psychiatric: no motor/sensory deficits, alert, normal mood/affect, oriented x 3 Skin: normal color, warm/dry, no rash Laboratory Results Last 24 Hours Test 11/04/16 07:26 11/04/16 09:31 White Blood Count 11.05 K/uL Red Blood Count 4.57 M/uL Hemoglobin 13.6 g/dL Hematocrit 42.2 % Mean Corpuscular Volume 92.3 fL Mean Corpuscular Hemoglobin 29.8 pg Mean Corpuscular Hemoglobin Concent 32.2 g/dl RDW Standard Deviation 44.5 fL RDW Coefficient of Variation 13.1 % Platelet Count 234 K/uL Mean Platelet Volume 9.6 fL Sodium Level 139 mmol/L Potassium Level 4.1 mmol/L Chloride Level 104 mmol/L Carbon Dioxide Level 30 mmol/L Anion Gap 5.0 mmol/L Blood Urea Nitrogen 10 mg/dl Creatinine 0.94 mg/dl Est Creatinine Clear Calc Drug Dose 139.8 ml/min Estimated GFR () 113.0 Estimated GFR (Non- 97.5 BUN/Creatinine Ratio 10.7 Random Glucose 99 mg/dl Calcium Level 8.5 mg/dl Phosphorus Level 3.0 mg/dl Magnesium Level 1.9 mg/dl Total Bilirubin 0.4 mg/dl Direct Bilirubin < 0.1 mg/dl Aspartate Amino Transf (AST/SGOT) 69 U/L Alanine Aminotransferase (ALT/SGPT) 111 U/L Alkaline Phosphatase 59 U/L Total Protein 6.8 gm/dl Albumin 3.1 gm/dl Assessment and Plan 46-year-old male with 2 week febrile illness with positive Monospot and splenomegaly, equivocal IgM Lyme serology,but rapid response to initiation of IV and oral antibiotics. Acute Judd-Merida virus infection very unusual in 46- year-old male, and suspect that the Monospot is a false positive. Clinical picture apart from respiratory complaints and splenomegaly are consistent with early Lyme disease as is response to antibiotic therapy. Patient could also have another infections such as anaplasma, CMV, or toxoplasmosis causing splenomegaly. I have ordered additional serologies, but see no contraindication from ID standpoint to discharge on oral doxycycline for 2 weeks.
[2016-11-04 11:46] VITALS: BP 142/80; PULSE 70; TEMP 36.6; O2SAT 95
[2016-11-04] MEDS ORDERED: LCTX PO (12:04)
[2016-11-04] MEDS ORDERED: DXY100 PO (12:04)
--- NOTE | 2016-11-04 12:07 | Discharge Instructions ---
Discharge Instructions Date of Service Nov 04, 2016. Admission Reason for Admission: Febrile Illness Discharge Discharge Diagnosis / Problem: Early Lyme disease Discharge Goals Goal(s): Prevent Disease Progression Activity Recommendations Activity Limitations: resume your previous activity . Instructions / Follow-Up Instructions / Follow-Up Dr Loyd on 11/11/16 at 11:00AM.Please make an appointment with Dr Samson in 2 weeks Current Hospital Diet Patient's current hospital diet: AHA Diet (Heart Healthy) Discharge Diet Recommended Diet: Regular Diet Pending Studies Studies pending at discharge: yes List of pending studies: Lyme and Viral serology Medical Emergencies . Who to Call and When: Medical Emergencies: If at any time you feel your situation is an emergency, please call 911 immediately. . Non-Emergent Contact Non-Emergency issues call your: Primary Care Provider . Past History Medical & Surgical History: (1) Febrile illness (2) Splenomegaly (3) Elevated liver function tests (4) Splenic laceration (5) History of colonic diverticulitis (6) Status post partial colectomy . "Provider Documentation" section prepared by Temitope Tenorio. . VTE Core Measure Inpt VTE Proph given/why not?: SCD's
[2016-11-04 12:41] VITALS: BP 142/80; PULSE 70; TEMP 36.6; O2SAT 95
--- NOTE | 2016-11-04 17:40 | Discharge Summary ---
Discharge Summary Date of Service Nov 04, 2016. Discharge Summary Admission Date: Nov 02, 2016 at 22:11 Discharge Date: Nov 04, 2016 Discharge Disposition: Home Principal Diagnosis: Early Lyme disease,Febrile Illness Secondary Diagnoses/Problems: Please see H&P and Hospital Progress note Consultations: ID Medication Reconciliation New Medications: Lactobacillus Acidophilus (Lactinex) Tab 2 TAB PO BID, #60 TAB Doxycycline Hyclate (Doxycycline Hyclate) 100 Mg Cap 100 MG PO BID for 12 Days, #24 CAP Admission Information HPI (per Admitting provider): 46-year-old male followed by Dr. Loyd for Family Medicine. History of diverticulitis. Otherwise, he enjoys good health. 2 weeks prior to admission noted onset of fatigue. Subsequently developed fever, chills, sweats, arthralgias, myalgias, anorexia. Mild cough, sometimes productive of clear blood-tinged sputum. No nausea, vomiting, diarrhea. No melena or hematochezia. Has had some intermittent left flank pain; no dysuria or hematuria. Diffuse headache. No photophobia. No nuchal rigidity. No rash. 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 Last known tick bite was last fall. He has pet dogs. No recent travel. No sick contacts. Past Medical/Surgical History Chronic and Resolved Medical Problems: (1) History of colonic diverticulitis Status: Chronic Surgical Problems: (1) Status post partial colectomy Permanent Comment: diverticulitis Status: Chronic . Family History FATHER Hypertension MOTHER Systemic lupus erythematosus Social History Smoking Status: Never Smoker Alcohol Use: socially Drug Use: none Marital Status: Housing status: lives with family Occupational Status: employed Immunizations History of Tetanus Vaccine?: Yes History of Pneumococcal: No History of Hepatitis B Vaccine: No Multi-Drug Resistant Organisms History of MDRO: No Allergies Coded Allergies: Ciprofloxacin (Verified Allergy, Intermediate, rash. chest tightness. SOB. dizziness, 04/24/16) Metronidazole (Verified Allergy, Intermediate, rash. chest tightness. SOB. dizziness, 04/24/16) Sulfamethoxazole w/Trimethoprim (Verified Allergy, Intermediate, RASH, ) Penicillins (Verified Allergy, Unknown, 04/24/16) Home Medications No Active Prescriptions or Reported Meds Review of Systems Constitutional: + fever, + chills, + sweats, No weight loss Eyes: No worsening of vision, No diplopia ENT: + nasal symptoms, No sore throat Respiratory: No cough, No shortness of breath Cardiovascular: No chest pain, No edema Abdomen: + nausea, No vomiting, No diarrhea, No GI bleeding Musculoskeletal: + joint pain, + muscle pain Genitourinary - Male: No hematuria, No dysuria Neurologic: + problem reported (diffuse headache) Endocrine: + fatigue, No excessive thirst, No excessive urination Hematologic / Lymphatic: No abnormal bleeding/bruising, No swollen lymph nodes Integumentary: No rash, No new/changing skin lesions Physical Ex - H&P Physical Exam Vital Signs Date Time Temp Pulse Resp B/P (MAP) Pulse Ox O2 Delivery O2 Flow Rate FiO2 11/02/16 21:40 75 16 125/77 96 Room Air 11/02/16 18:51 75 16 125/76 96 Room Air 11/02/16 15:42 36.7 86 16 133/88 95 Room Air General Appearance: WD/WN, no apparent distress Head: normocephalic, atraumatic Eyes: normal inspection, PERRL, EOMI, sclerae normal ENT: normal ENT inspection, hearing grossly normal, pharynx normal Neck: supple, no adenopathy, thyroid normal, trachea midline Respiratory/Chest: lungs clear, no respiratory distress, no accessory muscle use Cardiovascular: regular rate, rhythm, no edema, no gallop, no JVD, no murmur, normal peripheral pulses Abdomen/GI: normal bowel sounds, non tender, soft, no organomegaly, no pulsatile mass Extremities/Musculoskelatal: no calf tenderness, no pedal edema, + pertinent finding (no overt synovitis) 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 (PERRL, EOMI, no facial palsy, no dysarthria), no motor/sensory deficits (motor strength upper and lower extremities grossly intact), alert, normal mood/affect, oriented x 3 Skin: normal color, warm/dry, no rash Lymphatic: no adenopathy (cervical) Diagnostics - H&P Diagnostics Laboratory Results Results Past 24 Hours Test 11/02/16 16:43 Range/Units White Blood Count 11.11 4.8-10.8 K/uL Red Blood Count 4.87 4.7-6.1 M/uL Hemoglobin 15.0 14.0-18.0 g/dL Hematocrit 45.2 42-52 % Mean Corpuscular Volume 92.8 80-100 fL Mean Corpuscular Hemoglobin 30.8 25-34 pg Mean Corpuscular Hemoglobin Concent 33.2 32-36 g/dl Platelet Count 224 130-400 K/uL Mean Platelet Volume 9.8 7.4-10.4 fL Neutrophils (%) (Auto) 20.5 % Lymphocytes (%) (Auto) 64.0 % Monocytes (%) (Auto) 11.8 % Eosinophils (%) (Auto) 1.0 % Basophils (%) (Auto) 2.3 % Neutrophils # (Auto) 2.29 1.4-6.5 K/uL Lymphocytes # (Auto) 7.11 1.2-3.4 K/uL Monocytes # (Auto) 1.31 0.11-0.59 K/uL Eosinophils # (Auto) 0.11 0-0.5 K/uL Basophils # (Auto) 0.25 0-0.2 K/uL RDW Standard Deviation 45.0 36.4-46.3 fL RDW Coefficient of Variation 13.2 11.5-14.5 % Immature Granulocyte % (Auto) 0.4 % Immature Granulocyte # (Auto) 0.04 0.00-0.02 K/uL Prothrombin Time 11.3 9.0-12.0 SECONDS Prothromb Time International Ratio 1.1 0.9-1.1 Activated Partial Thromboplast Time 27.9 21.0-31.0 SECONDS Partial Thromboplastin Ratio 1.1 D-Dimer 2510 0-500 ug/L FEU Sodium Level 139 136-145 mmol/L Potassium Level 4.6 3.5-5.1 mmol/L Chloride Level 107 98-107 mmol/L Carbon Dioxide Level 29 21-32 mmol/L Anion Gap 3.0 3-11 mmol/L Blood Urea Nitrogen 13 7-18 mg/dl Creatinine 1.10 0.60-1.40 mg/dl Est Creatinine Clear Calc Drug Dose 119.4 ml/min Estimated GFR () 93.5 Estimated GFR (Non- 80.6 BUN/Creatinine Ratio 12.1 10-20 Random Glucose 102 70-99 mg/dl Calcium Level 8.9 8.5-10.1 mg/dl Total Bilirubin 0.3 0.2-1 mg/dl Direct Bilirubin < 0.1 0-0.2 mg/dl Aspartate Amino Transf (AST/SGOT) 74 15-37 U/L Alanine Aminotransferase (ALT/SGPT) 121 12-78 U/L Alkaline Phosphatase 67 45-117 U/L Total Creatine Kinase 60 39-308 U/L Creatine Kinase MB < 0.5 0.5-3.6 ng/ml Creatine Kinase MB Ratio 0-3.0 Troponin I < 0.015 0-0.045 ng/ml C-Reactive Protein 1.35 0-0.29 mg/dl Total Protein 7.4 6.4-8.2 gm/dl Albumin 3.5 3.4-5.0 gm/dl Lipase 204 73-393 U/L Lyme Disease IgG Antibody NEG NEG Lyme Disease IgM Antibody EQUIVOCAL NEG Monoscreen POS NEG Diagnostic Radiology CHEST ONE VIEW PORTABLE FINDINGS: No pneumothorax or pleural effusion is present. There is no consolidation to suggest pneumonia. Pulmonary vascularity is normal. Moderate cardiomegaly is unchanged. There is no evidence of pulmonary edema. IMPRESSION: 1. No acute cardiopulmonary findings. 2. Stable cardiomegaly. Electronically signed by: Boston Harper M.D. 11/02/2016 5:36 PM Dictated Date/Time: 11/02/2016 5:[address] OF THE HEAD WITHOUT CONTRAST FINDINGS: No acute intracranial hemorrhage, midline shift or mass effect is present. Ventricular system is normal. Basilar cisterns are patent. There are no extra-axial collections. Barraza-white differentiation is maintained. There are no findings to suggest acute dural sinus thrombosis or acute territorial infarct. Left maxillary sinus is diminutive and opacified. This is chronic. Right maxillary sinus is diminutive. Mastoid air cells are clear. There are no significant calvarial abnormalities. IMPRESSION: 1. No acute intracranial findings. 2. Chronic left maxillary sinusitis. Electronically signed by: Boston Harper M.D. 11/02/2016 7:29 PM Dictated Date/Time: 11/02/2016 7:[address] ANGIOGRAPHY OF THE CHEST, PULMONARY EMBOLUS PROTOCOL FINDINGS: No central or lobar pulmonary emboli are identified. Evaluation of the segmental and subsegmental pulmonary arteries is suboptimal due to respiratory motion artifact. The heart is moderately enlarged. There is no pericardial effusion. There is no thoracic aortic dissection. Note is made of mild dilatation of the ascending aorta which measures 4.1 cm at the level of the main pulmonary artery. No enlarged thoracic lymph nodes are present. Groundglass opacities within the lower lobes, lingula and right middle lobe are suboptimally assessed due to respiratory motion artifact but favor atelectasis. The bony thorax is unremarkable. The abdomen and pelvis will be reported separately. IMPRESSION: 1. No pulmonary emboli identified although segmental and subsegmental pulmonary arteries inadequately assessed due to respiratory motion artifact. 2. Moderate cardiomegaly with mild dilatation of the ascending aorta. No thoracic dissection. No pericardial effusion. 3. Bilateral lower lobe and lingular opacities which favor atelectasis. An infectious process could appear similar but is considered less likely. Electronically signed by: Boston Harper M.D. 11/02/2016 7:42 PM Dictated Date/Time: 11/02/2016 7:[address] OF THE ABDOMEN AND PELVIS WITH CONTRAST FINDINGS: The liver, adrenal glands and pancreas are unremarkable. There is no biliary or pancreatic ductal dilatation. A few prominent upper abdominal lymph nodes are unchanged since exam of August 11, 2014. Water attenuation bilateral renal lesions reflect cysts. There is no hydronephrosis. Mild splenomegaly has developed since CT of August 11, 2014. In addition, there is a probable 1.9 cm peripheral hypodensity within the anterior aspect of the midpole of the spleen. This is shown on axial image 24 of 109. There is trace fluid inferior to the spleen. There is no evidence for a bowel obstruction. The appendix is normal. There is colonic diverticulosis without evidence for acute diverticulitis. Fat-containing bilateral inguinal hernias are present. There are no suspicious osseous lesions. Moderate cardiomegaly is better depicted on the chest CT. IMPRESSION: 1. Mild splenomegaly which has developed since CT of August 11, 2014. 1.9 cm peripheral hypodensity within the mid aspect of the spleen may reflect a tiny infarct or less likely laceration although artifact could appear similar. Trace fluid inferior to the spleen. 2. Moderate cardiomegaly. 3. No bowel obstruction. Normal appendix. Electronically signed by: Boston Harper M.D. 11/02/2016 7:52 PM Dictated Date/Time: 11/02/2016 7:42 PM BILATERAL LOWER EXTREMITY VENOUS DOPPLER FINDINGS: The bilateral common femoral, superficial femoral and popliteal veins were compressible. Augmentation was normal. Flow was shown within the deep calf vessels. IMPRESSION: No evidence of deep venous thrombus within the bilateral lower extremities. Electronically signed by: Boston Harper M.D. 11/02/2016 10:51 PM Dictated Date/Time: 11/02/2016 10:51 PM . EKG EKG performed at 16:48 reviewed and demonstrated normal sinus rhythm at 70/ minute, incomplete right bundle branch block. . Impression - H&P Impression Assessment and Plan FEBRILE ILLNESS Two-week history of fever, chills, sweats, malaise, myalgias, arthralgias, and other symptoms as noted. 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 No apparent pneumonia per imaging. CT head demonstrates chronic left maxillary sinusitis- doubt that sinusitis is cause of systemic symptoms. Urinalysis negative. Doubt meningitis. Lyme screen equivocally positive; Western blot pending. Monospot positive. Blood cultures obtained. Patient received ceftriaxone in the ED which will be continued. Add doxycycline. Check tick-borne illness PCR panel. Check EBV PCR. Consult ID. COUGH / HEMOPTYSIS No infiltrates on plain films or CT. CTA chest negative for pulmonary embolism. SPLENOMEGALY / ? SPLENIC INFARCT OR HEMORRHAGE CT demonstrated mild splenomegaly with possible infarct or hemorrhage. No trauma. Consult General Surgery. CARDIOMEGALY Noted on CT. Check echo. DVT PROPHYLAXIS Low-moderate risk for DVT. No anticoagulants because of possible splenic hemorrhage. SCD's. Ambulate. RESUSCITATION STATUS Full resuscitation. DISPOSITION Admit to MedSurg Unit. Expected discharge to home. Family Medicine follow-up with Dr. Loyd. . VTE Prophylaxis VTE Risk Assessment Done? Y/N: Yes Risk Level: Moderate Given or contraindicated: SCD's . Physical Exam (per Admitting): General Appearance: WD/WN, no apparent distress Head: normocephalic, atraumatic Eyes: normal inspection, PERRL, EOMI, sclerae normal ENT: normal ENT inspection, hearing grossly normal, pharynx normal Neck: supple, no adenopathy, thyroid normal, trachea midline Respiratory/Chest: lungs clear, no respiratory distress, no accessory muscle use Cardiovascular: regular rate, rhythm, no edema, no gallop, no JVD, no murmur , normal peripheral pulses Abdomen/GI: normal bowel sounds, non tender, soft, no organomegaly, no pulsatile mass Extremities/Musculoskelatal: no calf tenderness, no pedal edema, + pertinent finding (no overt synovitis) 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 H/O Tick Bite ~[address] head demonstrates chronic left maxillary sinusitis- doubt that sinusitis is cause of systemic symptoms. Lyme screen equivocally positive; Western blot pending. Monospot positive with mild Splenomegaly Panculture-pending Patient received ceftriaxone in the ED which will be continued..Add doxycycline. Check EBV PCR. Consult ID-appreciate input. Clinically a lot better Will discharge home today COUGH / HEMOPTYSIS-resolved No infiltrates on plain films or CT. CTA chest negative for pulmonary embolism and or consolidation No more episode SPLENOMEGALY / ? SPLENIC INFARCT OR HEMORRHAGE CT demonstrated mild splenomegaly with possible infarct or hemorrhage. Likely secondary to Infectious Mononucleosis Consult General Surgery.-appreciate input No surgical intervention CARDIOMEGALY Noted on CT. Check echo ::: Normal LV chamber size with mild concentric LVH. * Normal LV systolic function, EF 55-60%. * No segmental left ventricular wall motion abnormalities are noted. * Grade I diastolic dysfunction. * Poorly visualized valvular structures with no significant stenosis or regurgitation by Doppler. * Mild left atrial enlargement. Doubt any Endocarditis . DVT PROPHYLAXIS Low-moderate risk for DVT. No anticoagulants because of possible splenic hemorrhage. SCD's. Ambulate. RESUSCITATION STATUS Full resuscitation. DISPOSITION Admit to MedSurg Unit. Expected discharge to home. Family Medicine follow-up with Dr. Loyd. Discharge home today Total time spent on discharge = 35 minutes This includes examination of the patient, discharge planning, medication reconciliation, and communication with other providers. Discharge Instructions Date of Service Nov 04, 2016. Admission Reason for Admission: Febrile Illness Discharge Discharge Diagnosis / Problem: Early Lyme disease Discharge Goals Goal(s): Prevent Disease Progression Activity Recommendations Activity Limitations: resume your previous activity . Instructions / Follow-Up Instructions / Follow-Up Dr Loyd on 11/11/16 at 11:00AM.Please make an appointment with Dr Samson in 2 weeks Current Hospital Diet Patient's current hospital diet: AHA Diet (Heart Healthy) Discharge Diet Recommended Diet: Regular Diet Pending Studies Studies pending at discharge: yes List of pending studies: Lyme and Viral serology Medical Emergencies . Who to Call and When: Medical Emergencies: If at any time you feel your situation is an emergency, please call 911 immediately. . Non-Emergent Contact Non-Emergency issues call your: Primary Care Provider . Past History Medical & Surgical History: (1) Febrile illness (2) Splenomegaly (3) Elevated liver function tests (4) Splenic laceration (5) History of colonic diverticulitis (6) Status post partial colectomy . "Provider Documentation" section prepared by Temitope Tenorio. . VTE Core Measure Inpt VTE Proph given/why not?: SCD's <Electronically signed by Temitope Tenorio M.D.> Signed: 11/04/16 6822 Additional Copies To Benito Loyd M.D.
[2016-11-05 13:35] LABS: EPSTEIN BARR VIR CAPSID IGG >750.00 U/ML
[2016-11-05 15:35] LABS: EBV DNA QUANT PCR 263 copies/mL (<200); EBV DNA QUANT SOURCE Whole Blood
[2016-11-06 12:29] LABS: CMV DNA PCR QUANT SOURCE Whole Blood; CMV DNA QN REAL TIME PCR 8267 IU/mL (<200)
[2016-11-08 15:42] LABS: 18KDIGG BAND NONREACTIVE (NONREACTIVE); 23KDIGG BAND NONREACTIVE (NONREACTIVE); 23KDIGM BAND REACTIVE (NONREACTIVE); 28KDIGG BAND NONREACTIVE (NONREACTIVE); 30KDIGG BAND NONREACTIVE (NONREACTIVE); 39KDIGG BAND NONREACTIVE (NONREACTIVE); 39KDIGM BAND NONREACTIVE (NONREACTIVE); 41KDIGG BAND REACTIVE (NONREACTIVE); 41KDIGM BAND REACTIVE (NONREACTIVE); 45KDIGG BAND NONREACTIVE (NONREACTIVE); 58KDIGG BAND NONREACTIVE (NONREACTIVE); 66KDIGG BAND NONREACTIVE (NONREACTIVE); 93KDIGG BAND NONREACTIVE (NONREACTIVE)
[2016-11-13 15:32] LABS: ANAPLASMA PHAGOCYTOPHIL DNA NOT DETECTED; ANAPLASMA PHAGOCYTOPHIL IGG <1:64 (<1:64); ANAPLASMA PHAGOCYTOPHIL IGM <1:20 (<1:20)
[2016-12-07] MEDS ORDERED: ULT50X PO (09:43)
[2016-12-07] MEDS ORDERED: DXY100 PO (09:43)
== END 2016-11-04 13:18 | disposition home or self-care (01) | DRG 868 ==
LOC: C.EDB 15:33 → C.MS2W 22:11 → ENRESERV 22:23
PROVIDERS: ADMIT Hospitalist; ATTEND Internal Medicine
DX: A69.20 Lyme disease, unspecified (principal); R04.2 Hemoptysis; R16.1 Splenomegaly, not elsewhere classified; I10 Essential (primary) hypertension; Z88.0 Allergy status to penicillin; Z88.2 Allergy status to sulfonamides

== ENCOUNTER → 2016-11-19 | Outpatient (CLI) | payer BC ==
[~2016-11-19] MED LIST changes: -CPR500HP PO; +DXY100 PO; +LCTX PO; -MTR500 PO; +ULT50X PO
[2016-11-23 04:58] LABS: ANTI-CENTROMERE AB <1.0 NEG AI (<1.0 NEG); ANTI-SS-A <1.0 NEG AI (<1.0 NEG); ANTI-SS-B <1.0 NEG AI (<1.0 NEG); DNA ds CRITHIDIA NEGATIVE (NEGATIVE); EPSTEIN BARR VIR CAPSID IGG >750.00 U/ML; MICROSOMAL AB 3 IU/ML (<9); PARVOVIRUS IgG INDEX 5.8 (<0.9); PARVOVIRUS IgM INDEX 0.3 (<0.9); Sm Antibody <1.0 NEG AI (<1.0 NEG)
== END | disposition home or self-care (01) ==
LOC: C.LAB1850 15:33
PROVIDERS: ATTEND Internal Medicine Infectious Disease
DX: A69.20 Lyme disease, unspecified (principal)

== ENCOUNTER → 2016-11-22 | Outpatient (CLI) | payer BC ==
[~2016-11-22] MED LIST changes: +OPTIRAY 320 IV PRN
--- NOTE | 2016-11-22 09:36 | DIAGNOSTIC IMAGING REPORT ---
ABDOMEN AND PELVIS CT WITH IV AND ORAL CONTRAST CT DOSE: HISTORY: Follow-up SPLENIC INFARCT TECHNIQUE: Multiaxial CT images of the abdomen and pelvis were performed following the use of intravenous and oral contrast. A dose lowering technique was utilized adhering to the principles of ALARA. COMPARISON STUDY: Abdomen and pelvis CT 11/02/2016. FINDINGS: The lung bases are clear. No pneumoperitoneum. No pneumatosis. No suspicious lytic or blastic osseous lesions. Mild motion artifact. The liver, gallbladder, pancreas, and adrenal glands are unremarkable. The spleen enhances normally. No perisplenic fluid. No evidence for a splenic infarct. Stable bilateral renal hypodense lesions consistent with cysts. The largest in the upper pole of the left kidney measures 4.9 cm. No hydronephrosis. Stable subcentimeter retroperitoneal lymph nodes. Small bilateral fat-containing inguinal hernias, unchanged. The bladder is underdistended but appears unremarkable. No bowel wall thickening or obstruction. Colonic diverticulosis. Normal appendix. IMPRESSION: 1. Normal spleen. 2. No bowel wall thickening or obstruction. 3. Colonic diverticulosis. 4. Stable bilateral renal hypodense lesions consistent with cysts. Electronically signed by: Epifanio Ryan M.D. 11/22/2016 9:34 AM Dictated Date/Time: 11/22/2016 9:28 AM
== END | disposition home or self-care (01) ==
LOC: C.CTS 07:24
PROVIDERS: ATTEND Internal Medicine Infectious Disease
DX: K57.30 Diverticulosis of large intestine without perforation or abscess without bleeding (principal); N28.9 Disorder of kidney and ureter, unspecified

== ENCOUNTER 2016-12-05 05:06 | Inpatient (IN) | payer BC ==
[~2016-12-05] VITALS: Ht 190.5 cm; Wt 120.8 kg
[~2016-12-05 05:06] MED LIST changes: -OPTIRAY 320 IV PRN; -ULT50X PO
[2016-12-05] MEDS ORDERED: SODIUM CHLORIDE 0.9% 1000ML 1,000 ML IV STA (05:23)
[2016-12-05] MEDS ORDERED: HYDROmorphone INJ 1 MG/ML SYR IV STA (05:55)
[2016-12-05 06:28] LABS: BASO % 1.3 %; BASO ABS # 0.09 K/uL (0-0.2); COMPLETE YES; EOS % 4.2 %; HEMATOCRIT 40.8 % (42-52); IG% 0.1 %; LYMPH % 43.8 %; LYMPH ABS # 3.13 K/uL (1.2-3.4); MEAN CELL VOLUME 90.3 fL (80-100); MEAN CORPUSCULAR HEMOGLOBIN 30.1 pg (25-34); MEAN CORPUSCULAR HGB CONC 33.3 g/dl (32-36); MEAN PLATELET VOLUME 9.6 fL (7.4-10.4); MONO % 12.9 %; NEUT % 37.7 %; PLATELET COUNT 216 K/uL (130-400); RED BLOOD COUNT 4.52 M/uL (4.7-6.1); WHITE BLOOD COUNT 7.14 K/uL (4.8-10.8)
[2016-12-05 06:46] LABS: PROTHROMBIN TIME (PATIENT) 10.8 SECONDS (9.0-12.0)
[2016-12-05 06:47] LABS: ALT/SGPT 41 U/L (12-78); BLOOD UREA NITROGEN 16 mg/dl (7-18); BUN/CREATININE RATIO 18.2 (10-20); CALCIUM 8.4 mg/dl (8.5-10.1); CARBON DIOXIDE 24 mmol/L (21-32); CHLORIDE 111 mmol/L (98-107); CREATININE 0.88 mg/dl (0.60-1.40); GLUCOSE 114 mg/dl (70-99); MAGNESIUM 1.9 mg/dl (1.8-2.4); SODIUM 143 mmol/L (136-145)
[2016-12-05 06:52] LABS: ALKALINE PHOSPHATASE 50 U/L (45-117); AST/SGOT 21 U/L (15-37); CKMB/CK RATIO 0.7 (0-3.0)
[2016-12-05] MEDS ORDERED: CEFTRIAXONE SOD INJ 1 GM ADDVIAL IV STA (07:22)
--- NOTE | 2016-12-05 07:26 | DIAGNOSTIC IMAGING REPORT ---
CHEST ONE VIEW PORTABLE CLINICAL HISTORY: fever ATYPICAL CHEST PAIN COMPARISON STUDY: 11/02/2016 FINDINGS: The heart is mildly enlarged. There is no failure. There is no focal pulmonary consolidation. There are no pleural effusions.[ IMPRESSION: Mild cardiomegaly. No acute findings. Electronically signed by: Catracho Piña M.D. 12/05/2016 7:24 AM Dictated Date/Time: 12/05/2016 7:24 AM
--- NOTE | 2016-12-05 07:42 | EMERGENCY ROOM VISIT NOTE ---
History Report prepared by Nicki: Tacos Steve Under the Supervision of: Dr. Shorty Sinclair M.D. First contact with patient: 05:18 Chief Complaint: OTHER COMPLAINT Stated Complaint: SWEATY,LOSS MADDIE,FLANK PAIN,CHEST TIGHTNESS History of Present Illness The patient is a 46 year old male who presents to the Emergency Room with multiple complaints all of which have persisted for the past month. The patient complains of chest "tightness", diaphoresis, left flank pain, and chills. He states that he has had no appetite recently. He denies any fevers, or abdominal pain. The patient was seen in the ED about a month ago with similar symptoms, and was found to be positive for Lyme disease, CMV, toxoplasmosis and mononucleosis. He was also found to have a splenic laceration at this time, as well as abnormal laboratory studies. He states that his symptoms have not improved significantly since his previous visit. The patient had a follow-up CT scan for his splenic laceration two weeks ago, and states that his flank pain feels identical to how it did at this time. His abdominal CT from two weeks ago was normal. Nothing has improved his symptoms. Source of History: patient Onset: one month ago Timing: other (persistent) Modifying Factors (Relieving): other (none) Associated Symptoms: + chills, + diaphoresis, + chest pain ("tightness"), No fevers, No abdominal pain Note: Symptoms: left flank pain. Review of Systems See HPI for pertinent positives & negatives. A total of 10 systems reviewed and were otherwise negative. Past Medical & Surgical Medical Problems: (1) History of colonic diverticulitis Surgical Problems: (1) Status post partial colectomy Family History Hypertension FATHER Systemic lupus erythematosus MOTHER Social History Smoking Status: Never Smoker Alcohol Use: none Drug Use: none Marital Status: Occupation Status: employed Current/Historical Medications Scheduled Doxycycline Hyclate (Doxycycline Hyclate), 100 MG PO BID Lactobacillus Acidophilus (Lactinex), 2 TAB PO BID Allergies Coded Allergies: Ciprofloxacin (Verified Allergy, Intermediate, rash. chest tightness. SOB. dizziness, 12/05/16) Metronidazole (Verified Allergy, Intermediate, rash. chest tightness. SOB. dizziness, 12/05/16) Sulfamethoxazole w/Trimethoprim (Verified Allergy, Intermediate, RASH, ) Penicillins (Verified Allergy, Unknown, 12/05/16) Physical Exam Vital Signs Date Time Temp Pulse Resp B/P (MAP) Pulse Ox O2 Delivery O2 Flow Rate FiO2 12/05/16 07:35 63 22 138/92 96 Room Air 12/05/16 06:32 63 18 151/90 95 Room Air 12/05/16 06:02 63 12/05/16 05:11 36.3 74 18 132/86 95 Room Air Physical Exam GENERAL: Patient is anxious appearing and in moderate distress. HEENT: No acute trauma, normocephalic atraumatic, mucous membranes moist, no nasal congestion, no scleral icterus. NECK: No stridor, no adenopathy, no meningismus, trachea is midline. LUNGS: No dyspnea. Clear to auscultation and equal bilaterally. No wheeze, no rhonchi. HEART: Regular rate and rhythm. No murmurs, rubs, gallops appreciated. ABDOMEN: Soft, nontender, bowel sounds positive, no masses appreciated, no peritonitis. BACK: No midline tenderness, no CVA tenderness EXTREMITIES: Normal motion all extremities, no cyanosis, no edema. NEUROLOGIC: Alert and oriented, no acute motor or sensory deficits, no focal weakness, cranial nerves grossly intact. SKIN: No rash, no jaundice, no diaphoresis. Medical Decision & Procedures ER Provider Diagnostic Interpretation: X ray results are stated below per my interpretation: Chest: 1 view: No infiltrate, no effusion, normal cardiac border. Laboratory Results 12/05/16 06:10 Red Blood Count 4.52, Mean Corpuscular Volume 90.3, Mean Corpuscular Hemoglobin 30.1, Mean Corpuscular Hemoglobin Concent 33.3, Mean Platelet Volume 9.6, Neutrophils (%) (Auto) 37.7, Lymphocytes (%) (Auto) 43.8, Monocytes (%) (Auto) 12.9, Eosinophils (%) (Auto) 4.2, Basophils (%) (Auto) 1.3, Neutrophils # (Auto ) 2.69, Lymphocytes # (Auto) 3.13, Monocytes # (Auto) 0.92, Eosinophils # (Auto ) 0.30, Basophils # (Auto) 0.09 12/05/16 06:10 Test 12/05/16 06:10 12/05/16 06:13 White Blood Count 7.14 K/uL (4.8-10.8) Red Blood Count 4.52 M/uL (4.7-6.1) Hemoglobin 13.6 g/dL (14.0-18.0) Hematocrit 40.8 % (42-52) Mean Corpuscular Volume 90.3 fL (80-100) Mean Corpuscular Hemoglobin 30.1 pg (25-34) Mean Corpuscular Hemoglobin Concent 33.3 g/dl (32-36) Platelet Count 216 K/uL (130-400) Mean Platelet Volume 9.6 fL (7.4-10.4) Neutrophils (%) (Auto) 37.7 % Lymphocytes (%) (Auto) 43.8 % Monocytes (%) (Auto) 12.9 % Eosinophils (%) (Auto) 4.2 % Basophils (%) (Auto) 1.3 % Neutrophils # (Auto) 2.69 K/uL (1.4-6.5) Lymphocytes # (Auto) 3.13 K/uL (1.2-3.4) Monocytes # (Auto) 0.92 K/uL (0.11-0.59) Eosinophils # (Auto) 0.30 K/uL (0-0.5) Basophils # (Auto) 0.09 K/uL (0-0.2) RDW Standard Deviation 43.2 fL (36.4-46.3) RDW Coefficient of Variation 13.2 % (11.5-14.5) Immature Granulocyte % (Auto) 0.1 % Immature Granulocyte # (Auto) 0.01 K/uL (0.00-0.02) Erythrocyte Sedimentation Rate 3 mm/hr (0-14) Prothrombin Time 10.8 SECONDS (9.0-12.0) Prothromb Time International Ratio 1.0 (0.9-1.1) Anion Gap 8.0 mmol/L (3-11) Est Creatinine Clear Calc Drug Dose 148.5 ml/min Estimated GFR () 120.2 Estimated GFR (Non- 103.7 BUN/Creatinine Ratio 18.2 (10-20) Calcium Level 8.4 mg/dl (8.5-10.1) Magnesium Level 1.9 mg/dl (1.8-2.4) Total Bilirubin 0.4 mg/dl (0.2-1) Direct Bilirubin < 0.1 mg/dl (0-0.2) Aspartate Amino Transf (AST/SGOT) 21 U/L (15-37) Alanine Aminotransferase (ALT/SGPT) 41 U/L (12-78) Alkaline Phosphatase 50 U/L (45-117) Total Creatine Kinase 138 U/L (39-308) Creatine Kinase MB 0.9 ng/ml (0.5-3.6) Creatine Kinase MB Ratio 0.7 (0-3.0) Troponin I < 0.015 ng/ml (0-0.045) C-Reactive Protein < 0.29 mg/dl (0-0.29) Total Protein 6.9 gm/dl (6.4-8.2) Albumin 3.5 gm/dl (3.4-5.0) Bedside Lactic Acid Venous 1.08 mmol/L (0.90-1.70) Laboratory results as reviewed by me. Medications Administered Medications (Trade) Dose Ordered Sig/Andre Route Start Time Stop Time Status Last Admin Dose Admin Sodium Chloride 1,000 ml @ 999 mls/hr Q1H1M STAT IV 12/05/16 05:23 12/05/16 06:23 DC 12/05/16 06:23 999 MLS/HR Hydromorphone HCl (Dilaudid Inj) 1 mg NOW STAT IV 12/05/16 05:55 12/05/16 05:56 DC 12/05/16 06:24 1 MG Ceftriaxone Sodium (Rocephin Inj) 2 gm NOW STAT IV 12/05/16 07:22 12/05/16 07:23 DC 12/05/16 07:28 2 GM ECG Indication: chest pain Rate (beats per minute): 72 Rhythm: normal sinus Findings: RBBB (incomplete), no acute ischemic change, no ectopy Comparison ECG Date: November 02, 2016 Change: no significant change ED Course 0519: The patient was evaluated in room B12B. A complete history and physical exam was performed. 0523: Ordered Sodium Chloride 1000 ml @ 999 mls/hr IV. 0555: Ordered Dilaudid Inj 1 mg IV. 0615: Feeling somewhat better after pain medications. 0700: Discussed with Dr Samson. Unclear etiology for patient's progressive symptoms who he knows well at this point. Suggests bring in to hospital for further work-up/evaluate. 0720: Discussed with Dr Oconor with plan for hospitalist evaluation. Medical Decision Differential: Sepsis, Infectious (UTI/Pneumonia/Meningitis/etc), Metabolic/ Electrolyte Abnormality, Cardiac, Hepatic, Endocrine, Toxicologic, Neurologic, amongst other pathologies entertained. 46 yr old male with complex last few weeks with diagnosis of acute Lyme/[place] with small splenic lac last month. Initially doing quite well on IV Rocephin and transitioned to PO Doxy at discharge after a few days. Notes rapidly worsening since. Stoic and refusing to go back to ED. Completed 2 weeks course doxy with worsening and no improvement. Did have repeat CT abdo/pelv with improvement in spleen. Arrives this morning as continuously worsening symptoms over last few days to point where minimal oral intake, generalized weakness, and in general just doesn't look well. Afebrile, normal WBC, normal Lactic acid would point away from this being sepsis. HgB stable, no peritonitis and no acute change in flank pain thus I feel we will hold on repeat CT abdo/pelv at this time. Already has had CT PE studies for similar symptoms thus will hold off on repeat of this. No meningitic findings. EKG/ Trop unremarkable and I do not feel this is ACS given prolonged symptoms. He is clearly not doing well and I discussed case with his ID specialist and after reviewing work-ups, he feels that patient likely will need to come in, start on IV abx, and have further autoimmune and viral testing. I did obtain blood cultures and will go ahead with IV Rocephin given reported successful treatment with this last month. With allergies, failure Doxy, and known response to IV meds, along with input of ID I feel it is reasonable to bring patient in and have thus consulted medicine team for further evaluation of patient. This patient was seen during [facility] down-time and chart completed at later date/time. Please note that times of orders, medications, and testing as well as re-evaluations and consultations may not accurately reflect actual times they were placed/preformed. Medication Reconcilliation Current Medication List: was personally reviewed by me Blood Pressure Screening Patient's blood pressure: Normal blood pressure Blood pressure disposition: Did not require urgent referral Impression Primary Impression: Failure of outpatient treatment Additional Impressions: Total body pain Disseminated Lyme disease EBV positive mononucleosis syndrome Scribe Attestation The scribe's documentation has been prepared under my direction and personally reviewed by me in its entirety. I confirm that the note above accurately reflects all work, treatment, procedures, and medical decision making performed by me. Departure Information Dispostion Still a Patient (Signed out to Dr. Gomez at the change of shift) Referrals Benito Loyd M.D. (PCP) Patient Instructions My [facility] Problem Qualifiers
[2016-12-05] MEDS ORDERED: ACETAMINOPHEN 325 MG TAB PO PRN (08:00)
[2016-12-05 08:10] VITALS: O2SAT 96; Ht 190.5 cm; Wt 120.8 kg
[2016-12-05 08:36] VITALS: O2SAT 95
--- NOTE | 2016-12-05 09:13 | History and Physical ---
History & Physical Date & Time of Service: Dec 05, 2016 at 08:56 Chief Complaint: Sweaty,Loss Jessica,Flank Pain,Chest Tightness Primary Care Physician: Benito Loyd M.D. History of Present Illness Source: patient, family, clinic records, hospital records This is a 46 year old male who was recently admitted at [facility] at the end of October 2016 for a tick-borne illness; at that time he was found to be positive for Lyme , toxoplasmosis and mononucleosis - though there were concerns about false positives. He states he never noted a tick on himself and denies seeing any rash ; even at that time. He was started on IV Rocephin during that admission and he started feeling better. He was discharged on doxycycline. States he was doing okay with the abx, but when the course of antibiotics was completed, he felt worse again. Currently, complaining of +fevers, +chills, +night sweats and sweats, fatigue, weakness, he has muscle and joint aches throughout the body. Tells me he also developed some chest heaviness this morning and his main complaint during exam was a L sided flank pain. Denies nausea/vomiting/diarrhea ; denies urinary symptoms. Past Medical/Surgical History Medical Problems: (1) History of colonic diverticulitis Status: Chronic Surgical Problems: (1) Status post partial colectomy Permanent Comment: diverticulitis Status: Chronic Family History Hypertension FATHER Systemic lupus erythematosus MOTHER Social History Smoking Status: Never Smoker Drug Use: none Marital Status: Housing status: lives with family Occupational Status: employed Immunizations History of Tetanus Vaccine?: Yes History of Pneumococcal: No History of Hepatitis B Vaccine: No Multi-Drug Resistant Organisms History of MDRO: No Allergies Coded Allergies: Ciprofloxacin (Verified Allergy, Intermediate, rash. chest tightness. SOB. dizziness, 12/05/16) Metronidazole (Verified Allergy, Intermediate, rash. chest tightness. SOB. dizziness, 12/05/16) Sulfamethoxazole w/Trimethoprim (Verified Allergy, Intermediate, RASH, ) Penicillins (Verified Allergy, Unknown, 12/05/16) Home Medications Scheduled Doxycycline Hyclate (Doxycycline Hyclate), 100 MG PO BID Lactobacillus Acidophilus (Lactinex), 2 TAB PO BID Review of Systems Constitutional: + fever, + chills, + sweats, + weakness, + fatigue, No weight loss Eyes: No worsening of vision ENT: No hearing loss, No sore throat Respiratory: No cough, No sputum, No wheezing, No shortness of breath, No dyspnea on exertion, No dyspnea at rest, No hemoptysis Cardiovascular: + chest pain (worse with palpation), No orthopnea, No PND, No edema, No claudication, No palpitations Abdomen: + pain (L flank pain), No nausea, No vomiting, No diarrhea, No constipation, No GI bleeding Musculoskeletal: + joint pain, + muscle pain (diffuse joint and muscle aches), No swelling, No calf pain Genitourinary - Male: No hematuria, No dysuria, No urinary frequency, No urinary urgency, No urinary hesitancy, No urinary retention, No urinary incontinence Neurologic: + weakness, No memory loss, No paralysis, No numbness/tingling, No vertigo, No balance problems Psychiatric: No depression symptoms, No anxiety, No insomnia Endocrine: + fatigue, No excessive thirst, No excessive urination Hematologic / Lymphatic: No abnormal bleeding/bruising Integumentary: No rash Allergic / Immunologic: No environmental allergies, No seasonal allergies Physical Exam Vital Signs Date Time Temp Pulse Resp B/P (MAP) Pulse Ox O2 Delivery O2 Flow Rate FiO2 12/05/16 07:35 63 22 138/92 96 Room Air 12/05/16 06:32 63 18 151/90 95 Room Air 12/05/16 06:02 63 12/05/16 05:11 36.3 74 18 132/86 95 Room Air General Appearance: + mild distress (fatigued, +pain at L flank) Head: normocephalic, atraumatic Eyes: normal inspection ENT: hearing grossly normal Neck: supple Respiratory/Chest: lungs clear, normal breath sounds, no respiratory distress, no accessory muscle use, + pertinent finding (+chest wall tenderness with palpation) Cardiovascular: regular rate, rhythm, no edema, no gallop, no JVD, no murmur, normal peripheral pulses Abdomen/GI: normal bowel sounds, non tender, soft Back: no muscle spasm, + left CVA tenderness (worse with palpation) Extremities/Musculoskelatal: normal inspection, no calf tenderness, normal capillary refill, no pedal edema, normal range of motion Neurologic/Psych: miller kil[place] dried salt II-XII nml as tested, no motor/sensory deficits, alert, normal mood/affect, oriented x 3 Skin: normal color Lymphatic: no adenopathy Diagnostics Laboratory Results Results Past 24 Hours Test 12/05/16 06:10 12/05/16 06:13 Range/Units White Blood Count 7.14 4.8-10.8 K/uL Red Blood Count 4.52 4.7-6.1 M/uL Hemoglobin 13.6 14.0-18.0 g/dL Hematocrit 40.8 42-52 % Mean Corpuscular Volume 90.3 80-100 fL Mean Corpuscular Hemoglobin 30.1 25-34 pg Mean Corpuscular Hemoglobin Concent 33.3 32-36 g/dl Platelet Count 216 130-400 K/uL Mean Platelet Volume 9.6 7.4-10.4 fL Neutrophils (%) (Auto) 37.7 % Lymphocytes (%) (Auto) 43.8 % Monocytes (%) (Auto) 12.9 % Eosinophils (%) (Auto) 4.2 % Basophils (%) (Auto) 1.3 % Neutrophils # (Auto) 2.69 1.4-6.5 K/uL Lymphocytes # (Auto) 3.13 1.2-3.4 K/uL Monocytes # (Auto) 0.92 0.11-0.59 K/uL Eosinophils # (Auto) 0.30 0-0.5 K/uL Basophils # (Auto) 0.09 0-0.2 K/uL RDW Standard Deviation 43.2 36.4-46.3 fL RDW Coefficient of Variation 13.2 11.5-14.5 % Immature Granulocyte % (Auto) 0.1 % Immature Granulocyte # (Auto) 0.01 0.00-0.02 K/uL Erythrocyte Sedimentation Rate 3 0-14 mm/hr Prothrombin Time 10.8 9.0-12.0 SECONDS Prothromb Time International Ratio 1.0 0.9-1.1 Sodium Level 143 136-145 mmol/L Potassium Level 4.0 3.5-5.1 mmol/L Chloride Level 111 98-107 mmol/L Carbon Dioxide Level 24 21-32 mmol/L Anion Gap 8.0 3-11 mmol/L Blood Urea Nitrogen 16 7-18 mg/dl Creatinine 0.88 0.60-1.40 mg/dl Est Creatinine Clear Calc Drug Dose 148.5 ml/min Estimated GFR () 120.2 Estimated GFR (Non- 103.7 BUN/Creatinine Ratio 18.2 10-20 Random Glucose 114 70-99 mg/dl Calcium Level 8.4 8.5-10.1 mg/dl Magnesium Level 1.9 1.8-2.4 mg/dl Total Bilirubin 0.4 0.2-1 mg/dl Direct Bilirubin < 0.1 0-0.2 mg/dl Aspartate Amino Transf (AST/SGOT) 21 15-37 U/L Alanine Aminotransferase (ALT/SGPT) 41 12-78 U/L Alkaline Phosphatase 50 45-117 U/L Total Creatine Kinase 138 39-308 U/L Creatine Kinase MB 0.9 0.5-3.6 ng/ml Creatine Kinase MB Ratio 0.7 0-3.0 Troponin I < 0.015 0-0.045 ng/ml C-Reactive Protein < 0.29 0-0.29 mg/dl Total Protein 6.9 6.4-8.2 gm/dl Albumin 3.5 3.4-5.0 gm/dl Bedside Lactic Acid Venous 1.08 0.90-1.70 mmol/L Microbiology Results 12/05/16 Blood Culture, Received Pending 12/05/16 Blood Culture, Received Pending Diagnostic Radiology CHEST ONE VIEW PORTABLE CLINICAL HISTORY: fever ATYPICAL CHEST PAIN COMPARISON STUDY: 11/02/2016 FINDINGS: The heart is mildly enlarged. There is no failure. There is no focal pulmonary consolidation. There are no pleural effusions.[ IMPRESSION: Mild cardiomegaly. No acute findings. EKG Normal sinus rhythm Incomplete right bundle branch block Borderline ECG Impression Assessment and Plan This is a 46 year old male here with constitutional symptoms and possible tick- borne illness Tick-borne illness Lyme Disease patient is feeling constitutional symptoms; including fevers/chills, sweats, muscle/joint pains completed course of doxycycline a few weeks back will restart 2G of Rocephin for now IVFs Tylenol and Toradol PRN for pain/fevers blood cultures/urine culture pending will trend cardiac enzymes, though chest pain is more like chest wall tenderness related to muscle aches consulted ID for further input DVT ppx low risk - ambulation Full Code Advanced Directives Existing Living Will: No 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 Y/N: Yes Risk Level: Low
[2016-12-05] MEDS: SODIUM CHLORIDE 0.9% 1000ML 1,000 ML IV SCH ×2 (09:21→20:28)
[2016-12-05] MEDS: KETOROLAC TROMETHAMINE 30 MG/ML VIAL IV PRN ×2 (09:21→20:30)
[2016-12-05 09:25] VITALS: BP 169/89; PULSE 60; TEMP 36.4; O2SAT 96
[2016-12-05 09:30] LABS: URINE APPEARANCE CLEAR (CLEAR); URINE BILIRUBIN NEG (NEG); URINE COLOR YELLOW; URINE NITRITE NEG (NEG); URINE SPECIFIC GRAVITY 1.022 (1.000-1.030); UROBILINOGEN NEG (NEG); ZZUR CULT IF INDIC CLEAN CATCH NO
[2016-12-05 09:32] LABS: MANUAL MICROSCOPIC REQUIRED? NO; REVIEW REQ? NO
--- NOTE | 2016-12-05 13:19 | INFECT. DISEASE CONSULTATION ---
DATE OF CONSULTATION: 12/05/2016 DATE OF CONSULTATION: 12/05/2016 REQUESTING PHYSICIAN: Dr. Lozoya. HISTORY OF PRESENT ILLNESS: This is a 46-year-old gentleman who was recently admitted on 11/04/2016. He was seen by Dr. Samson at that time. He had presented with diffuse arthralgias and myalgias and subjective fevers and chills at that time. Upon review of his laboratory studies, a Lyme titer was done and he was noted to have unequivocal screen, however, he had 2 of 3 IgM bands that were reactive in only 1/10. He was given 2-week course of doxycycline and states he felt significantly better while taking this. He did have a positive mono screen which was felt to be a false positive as Judd-Merida DNA was done at 263 copies. He also had a study done for toxoplasmosis, which showed a positive IgM antibody, but no IgG antibody. The patient denies any exposure to cats or cat feces. Anaplasma studies were done and were negative. He also had CMV antibodies obtained which were elevated. His CMV PCR was elevated at 8267 copies. He has had no additional CMV quants obtained. He does live at home with his and a 12-year-old daughter, both of which are well. They do have 2 dogs, but no other pets. There has been no recent travel. He has not left the [place] area since his last admission. He did complete a course of doxycycline and felt better while on this but his symptoms have returned over the last week. He has been off work. He does work in [employer] business for [employer] and also does side [employer] as well which he has not been able to do. He states 2 days ago he went outside to cut his own grass and had significant fatigue and associated shakes. He is also complaining of intermittent profuse sweating. He denies any cough or chest pain currently. He has no nausea, vomiting or diarrhea. His appetite is somewhat decreased. He has no urinary symptoms. He denies any recent tick bites or rashes. He states overall his myalgias and arthralgias are improving but remaining. His major complaint is of continued fatigue. He has no headache, neck pain or visual changes. On my examination today, he is complaining of left-sided pain in the retroperitoneal area. He states this has been ongoing for several weeks. He did have a CAT scan of the abdomen and pelvis which was done on 11/22/2016. This did show a normal spleen and also was found to have a cyst of the kidney. He did have a CT done in the hospital on the 02 of November which did show mild splenomegaly. This appears to have resolved by repeat CAT scan; however, he is having pain in this area. Since admission he has been afebrile. He is hemodynamically stable. His laboratory studies are within normal limits including a CRP and sed rate which are within normal limits. Blood cultures were obtained and are pending. His previous cultures are negative and final. He was started on Rocephin empirically and appears to be tolerating this well. All remaining review of systems are negative except or as noted above. PAST MEDICAL HISTORY: Significant for history of diverticulitis. PAST SURGICAL HISTORY: Significant for partial colectomy. FAMILY HISTORY: Noncontributory. SOCIAL HISTORY: Negative for alcohol, drug use or tobacco use. His previous social history is as above. ALLERGIES: CIPRO, FLAGYL, PENICILLIN AND SULFA. CURRENT MEDICATIONS: Include Rocephin, Toradol and Tylenol. PHYSICAL EXAMINATION: VITAL SIGNS: She is afebrile, pulse 60, respiratory rate is 20, blood pressure is 169/89, oxygen saturation is 96% on room air. GENERAL: He is awake, alert and oriented x3. He is in no acute distress. HEAD, EYES, EARS, NOSE, AND THROAT: Mucous membranes are moist. Extraocular muscles are intact. SKIN: Without rash. HEART: Regular. LUNGS: Clear bilaterally. ABDOMEN: Soft, nontender, nondistended. EXTREMITIES: There is no lower extremity edema bilaterally. LABORATORY STUDIES: CBC today reveals a white blood cell count of 7.1, hemoglobin 13.6, platelets are 216, sed rate is 3. Chemistry panel reveals a sodium of 143, potassium 4.0, chloride 111, bicarb 24, BUN 16, creatinine 0.8, glucose is 114. LFTs are within normal limits. CRP is less than 0.29. Urinalysis is unremarkable. Previous testing is as above. Blood cultures are pending. Chest x-ray was done in the Emergency Room and is unremarkable. ASSESSMENT AND PLAN: History of Lyme disease. He will now complete a 4-week course. It is unclear if his symptoms are related to ongoing Lyme disease after only 14 days of antibiotics. Certainly his course could be extended to 28 days. He is on Rocephin however will remain on this pending the results of blood cultures. Certainly this all could be part of a mononucleosis syndrome from CMV. His PCR will be repeated. He recently had a CAT scan of the abdomen which showed improvement of splenomegaly. If he continues to have worsening abdominal pain it may be worthy to repeat this; however, I do not elicit any direct trauma. I will follow along with you. Thank you for this consultation.
--- NOTE | 2016-12-05 13:21 | Progress Note ---
Progress Note Date of Service Dec 05, 2016. Progress Note ID Consult Dictated #[id number] A/P: 1. Lyme Disease 2. [place] -Agree with ctx for now, pending cultures, if negative would benefit from additional 14 days doxy for previous diagnosed lyme (2/3 IgM bands +) -CMV quant elevated on last admission and pt had enlarged spleen (resolved on ct scan) which would support mono syndrome, suspect his symptoms may persist due to this, will repeat quant -will follow, thank you
[2016-12-05 14:43] LABS: CKMB/CK RATIO 0.8 (0-3.0)
[2016-12-05 14:56] VITALS: BP 136/78; PULSE 67; TEMP 36.6; O2SAT 97
[2016-12-05 22:54] LABS: CKMB/CK RATIO 0.4 (0-3.0)
[2016-12-05 23:25] VITALS: BP 159/92; PULSE 64; TEMP 36.2; O2SAT 97
[2016-12-06 07:24] VITALS: BP 150/85; PULSE 60; TEMP 36.5; O2SAT 98
[2016-12-06] MEDS: KETOROLAC TROMETHAMINE 30 MG/ML VIAL IV PRN ×2 (07:42→21:30)
[2016-12-06] MEDS: SODIUM CHLORIDE 0.9% 1000ML 1,000 ML IV SCH ×2 (07:42→21:25)
[2016-12-06] MEDS: CEFTRIAXONE SOD INJ 2,000 MG in DEXTROSE 5% 50ML 50 ML IV SCH (07:42)
--- NOTE | 2016-12-06 13:21 | Progress Note ---
Subjective Date of Service: Dec 06, 2016. Subjective no overnight events remain afebrile. blood cultures pending. tolerating abx. repeat cmv quant pending. Problem List Medical Problems: (1) Allergic reaction Status: Acute (2) Disseminated Lyme disease Status: Acute (3) EBV positive mononucleosis syndrome Status: Acute (4) Elevated liver function tests Status: Acute (5) Failure of outpatient treatment Status: Acute (6) Splenic laceration Status: Acute (7) Splenomegaly Status: Acute (8) Total body pain Status: Acute Objective Vital Signs Date Time Temp Pulse Resp B/P (MAP) Pulse Ox O2 Delivery O2 Flow Rate FiO2 12/06/16 08:00 Room Air 12/06/16 07:24 36.5 60 20 150/85 (106) 98 Room Air 12/06/16 00:00 Room Air 12/05/16 23:25 36.2 64 18 159/92 (114) 97 Room Air 12/05/16 20:00 Room Air 12/05/16 16:00 Room Air 12/05/16 14:56 36.6 67 18 136/78 (97) 97 Room Air Laboratory Results Last 24 Hours Test 12/05/16 13:54 12/05/16 22:14 Total Creatine Kinase 129 U/L 135 U/L Creatine Kinase MB 1.0 ng/ml 0.6 ng/ml Creatine Kinase MB Ratio 0.8 0.4 Troponin I < 0.015 ng/ml < 0.015 ng/ml Assessment and Plan (1) Febrile illness Assessment & Plan: can continue ctx for now, if blood cultures negative can change to po doxy x 21 days to treat for previously diagnosed lyme disease. suspect component of symptoms is due to mononucleosis - cmv. will likely have continued symptoms for few weeks. would treat with otc anti-pyretics. No new ID recs at this time.
[2016-12-06 16:12] VITALS: BP 138/85; PULSE 55; TEMP 36.7; O2SAT 99
--- NOTE | 2016-12-06 17:44 | Progress Note ---
Subjective Date of Service: Dec 06, 2016. Subjective Pt evaluation today including: conversation w/ patient, physical exam, lab review, review of studies, review of inpatient medication list Saw/examined the patient in room 417 He's doing better, states his L sided flank/LUQ abdominal pain has resolved Feels better, eager to get home Problem List Medical Problems: (1) Allergic reaction Status: Acute (2) Disseminated Lyme disease Status: Acute (3) EBV positive mononucleosis syndrome Status: Acute (4) Elevated liver function tests Status: Acute (5) Failure of outpatient treatment Status: Acute (6) Splenic laceration Status: Acute (7) Splenomegaly Status: Acute (8) Total body pain Status: Acute Review of Systems Constitutional: + weakness, + fatigue (improving), No fever, No chills Respiratory: No shortness of breath Cardiac: No chest pain Abdomen: + pain (LUQ, improving), No nausea, No vomiting, No diarrhea Musculoskeletal: + joint pain (improving) Heme: No abnormal bleeding/bruising Medications Current Inpatient Medications Medications (Trade) Dose Ordered Sig/Andre Route Start Time Stop Time Status Last Admin Dose Admin Acetaminophen (Tylenol Tab) 650 mg Q4H PRN PO 12/05/16 08:00 01/04/17 07:59 Ceftriaxone Sodium 2000 mg/ Dextrose 70 ml @ 100 mls/hr DAILY@0800 IV 12/06/16 08:00 12/15/16 07:59 12/06/16 07:42 100 MLS/HR Sodium Chloride 1,000 ml @ 80 mls/hr [id number] IV 12/05/16 08:00 01/04/17 07:59 12/06/16 07:42 80 MLS/HR Ketorolac Tromethamine (Toradol Inj) 30 mg Q6H PRN IV 12/05/16 08:15 12/10/16 08:14 12/06/16 07:42 30 MG Objective Vital Signs Date Time Temp Pulse Resp B/P (MAP) Pulse Ox O2 Delivery O2 Flow Rate FiO2 12/06/16 16:12 36.7 55 18 138/85 (102) 99 Room Air 12/06/16 16:00 Room Air 12/06/16 08:00 Room Air 12/06/16 07:24 36.5 60 20 150/85 (106) 98 Room Air 12/06/16 00:00 Room Air 12/05/16 23:25 36.2 64 18 159/92 (186) 70 Room Air 12/05/16 20:00 Room Air Physical Exam General Appearance: no apparent distress Respiratory/Chest: lungs clear, normal breath sounds, no respiratory distress, no accessory muscle use Cardiovascular: regular rate, rhythm, no edema, no murmur Abdomen: normal bowel sounds, non tender, soft Extremities: normal inspection, no pedal edema Neurologic/Psychiatric: no motor/sensory deficits, alert, normal mood/affect Laboratory Results Last 24 Hours Test 12/05/16 22:14 Total Creatine Kinase 135 U/L Creatine Kinase MB 0.6 ng/ml Creatine Kinase MB Ratio 0.4 Troponin I < 0.015 ng/ml Assessment and Plan This is a 46 year old male here with constitutional symptoms and possible tick- borne illness Tick-borne illness Lyme Disease 12/06 appreciate ID input for now, continue Rocephin once cultures return negative, we can d/c with doxycycline x21 days 12/05 patient is feeling constitutional symptoms; including fevers/chills, sweats, muscle/joint pains completed course of doxycycline a few weeks back will restart 2G of Rocephin for now IVFs Tylenol and Toradol PRN for pain/fevers blood cultures/urine culture pending will trend cardiac enzymes, though chest pain is more like chest wall tenderness related to muscle aches consulted ID for further input DVT ppx low risk - ambulation Full Code
[2016-12-06 23:33] VITALS: BP 177/91; PULSE 60; TEMP 36.7; O2SAT 95
[2016-12-07 05:29] VITALS: BP 158/67
[2016-12-07 07:39] LABS: HEMATOCRIT 38.8 % (42-52); MEAN CORPUSCULAR HEMOGLOBIN 31.1 pg (25-34); MEAN CORPUSCULAR HGB CONC 34.5 g/dl (32-36); MEAN PLATELET VOLUME 9.3 fL (7.4-10.4); PLATELET COUNT 200 K/uL (130-400); RED BLOOD COUNT 4.31 M/uL (4.7-6.1); WHITE BLOOD COUNT 7.09 K/uL (4.8-10.8)
[2016-12-07] MEDS: CEFTRIAXONE SOD INJ 2,000 MG in DEXTROSE 5% 50ML 50 ML IV SCH (08:00)
[2016-12-07 08:42] VITALS: BP 168/96; PULSE 59; TEMP 36.4; O2SAT 95
[2016-12-07] MEDS: SODIUM CHLORIDE 0.9% 1000ML 1,000 ML IV SCH (09:16)
--- NOTE | 2016-12-07 09:42 | Progress Note ---
Subjective Date of Service: Dec 07, 2016. Subjective Pt evaluation today including: conversation w/ patient, physical exam, lab review, review of studies, review of inpatient medication list Saw/examined the patient in room 417 He's doing well today; with no fevers/chills Weakness and fatigue improving Pain is improving in the joints and the LUQ abdomen Problem List Medical Problems: (1) Allergic reaction Status: Acute (2) Disseminated Lyme disease Status: Acute (3) EBV positive mononucleosis syndrome Status: Acute (4) Elevated liver function tests Status: Acute (5) Failure of outpatient treatment Status: Acute (6) Splenic laceration Status: Acute (7) Splenomegaly Status: Acute (8) Total body pain Status: Acute Review of Systems Constitutional: No fever, No chills, No weakness (improving), No fatigue ( improving) Respiratory: No cough, No sputum, No shortness of breath Abdomen: No pain, No nausea, No vomiting, No diarrhea Medications Current Inpatient Medications Medications (Trade) Dose Ordered Sig/Andre Route Start Time Stop Time Status Last Admin Dose Admin Acetaminophen (Tylenol Tab) 650 mg Q4H PRN PO 12/05/16 08:00 01/04/17 07:59 Ceftriaxone Sodium 2000 mg/ Dextrose 70 ml @ 100 mls/hr DAILY@0800 IV 12/06/16 08:00 12/15/16 07:59 12/07/16 08:00 100 MLS/HR Sodium Chloride 1,000 ml @ 80 mls/hr [id number] IV 12/05/16 08:00 01/04/17 07:59 12/07/16 09:16 80 MLS/HR Ketorolac Tromethamine (Toradol Inj) 30 mg Q6H PRN IV 12/05/16 08:15 12/10/16 08:14 12/06/16 21:30 30 MG Objective Vital Signs Date Time Temp Pulse Resp B/P (MAP) Pulse Ox O2 Delivery O2 Flow Rate FiO2 12/07/16 08:42 36.4 59 20 168/96 (120) 95 12/07/16 08:00 Room Air 12/07/16 05:29 158/67 (97) 12/07/16 00:00 Room Air 12/06/16 23:33 36.7 60 18 177/91 (119) 95 Room Air 12/06/16 16:12 36.7 55 18 138/85 (102) 99 Room Air 12/06/16 16:00 Room Air Physical Exam General Appearance: no apparent distress Respiratory/Chest: lungs clear, normal breath sounds, no respiratory distress, no accessory muscle use Cardiovascular: regular rate, rhythm, no edema, no murmur Laboratory Results Last 24 Hours Test 12/07/16 07:17 White Blood Count 7.09 K/uL Red Blood Count 4.31 M/uL Hemoglobin 13.4 g/dL Hematocrit 38.8 % Mean Corpuscular Volume 90.0 fL Mean Corpuscular Hemoglobin 31.1 pg Mean Corpuscular Hemoglobin Concent 34.5 g/dl RDW Standard Deviation 42.5 fL RDW Coefficient of Variation 13.0 % Platelet Count 200 K/uL Mean Platelet Volume 9.3 fL Assessment and Plan This is a 46 year old male here with constitutional symptoms and possible tick- borne illness Tick-borne illness Lyme Disease 12/07 prelim blood cultures negative x2 will d/c home with twenty one days of doxycycline 12/06 appreciate ID input for now, continue Rocephin once cultures return negative, we can d/c with doxycycline x21 days 12/05 patient is feeling constitutional symptoms; including fevers/chills, sweats, muscle/joint pains completed course of doxycycline a few weeks back will restart 2G of Rocephin for now IVFs Tylenol and Toradol PRN for pain/fevers blood cultures/urine culture pending will trend cardiac enzymes, though chest pain is more like chest wall tenderness related to muscle aches consulted ID for further input DVT ppx low risk - ambulation Full Code
[2016-12-07] MEDS ORDERED: ULT50X PO (09:43)
[2016-12-07] MEDS ORDERED: DXY100 PO (09:43)
[2016-12-07 09:45] VITALS: BP 168/96; PULSE 59; TEMP 36.4; O2SAT 95
--- NOTE | 2016-12-07 11:27 | Discharge Instructions ---
Discharge Instructions Date of Service Dec 07, 2016. Admission Reason for Admission: Disseminated Lyme Disease, Ebv Pos Borden Syndrome Discharge Discharge Diagnosis / Problem: Disseminated Lyme, Mononucleosis Discharge Goals Goal(s): Decrease discomfort, Improve function, Diagnostic testing, Therapeutic intervention Activity Recommendations Activity Limitations: per Instructions/Follow-up section . Instructions / Follow-Up Instructions / Follow-Up Please follow-up with Dr. Loyd - you will get a date and time with an appointment Please follow-up with Dr. Samson, infectious disease, in 1-2 weeks You will be discharged with doxycycline 100mg twice a day for 21 days You will be discharged with tramadol for pain, please only take as needed - and do not drive if you take this Current Hospital Diet Patient's current hospital diet: Regular Diet Discharge Diet Recommended Diet: Regular Diet Pending Studies Studies pending at discharge: no Work Instructions Return To Work: after follow-up (after follow-up with primary care physician) Additional Instructions: Patient was seen and examined by me at [facility] on December 05, December 06 and December 07 Patient may return to work after follow-up with primary care physician Medical Emergencies . Who to Call and When: Medical Emergencies: If at any time you feel your situation is an emergency, please call 911 immediately. . Non-Emergent Contact Non-Emergency issues call your: Primary Care Provider . . "Provider Documentation" section prepared by Rebecca Lozoya. . VTE Core Measure Inpt VTE Proph given/why not?: Treatment not indicated [place] Drug Monitoring Program Search Results: patient reviewed within database, no issues identified
--- NOTE | 2016-12-07 11:31 | Discharge Summary ---
Discharge Summary Date of Service Dec 07, 2016. Discharge Summary Admission Date: Dec 05, 2016 at 08:02 Discharge Date: Dec 07, 2016 Discharge Disposition: Home Principal Diagnosis: Tick-borne illness; Lyme disease Mononucleosis Medication Reconciliation New Medications: Tramadol HCl (Tramadol HCl) 50 Mg Tab 50 MG PO Q6 for 3 Days, #12 TABS Continued Medications: Doxycycline Hyclate (Doxycycline Hyclate) 100 Mg Cap 100 MG PO BID for 21 Days, #42 CAP (This prescription has been renewed) Lactobacillus Acidophilus (Lactinex) Tab 2 TAB PO BID, #60 TAB Admission Information HPI (per Admitting provider): This is a 46 year old male who was recently admitted at [facility] at the end of October 2016 for a tick-borne illness; at that time he was found to be positive for Lyme , toxoplasmosis and mononucleosis - though there were concerns about false positives. He states he never noted a tick on himself and denies seeing any rash ; even at that time. He was started on IV Rocephin during that admission and he started feeling better. He was discharged on doxycycline. States he was doing okay with the abx, but when the course of antibiotics was completed, he felt worse again. Currently, complaining of +fevers, +chills, +night sweats and sweats, fatigue, weakness, he has muscle and joint aches throughout the body. Tells me he also developed some chest heaviness this morning and his main complaint during exam was a L sided flank pain. Denies nausea/vomiting/diarrhea ; denies urinary symptoms. Physical Exam (per Admitting): General Appearance: + mild distress (fatigued, +pain at L flank) Head: normocephalic, atraumatic Eyes: normal inspection ENT: hearing grossly normal Neck: supple Respiratory/Chest: lungs clear, normal breath sounds, no respiratory distress, no accessory muscle use, + pertinent finding (+chest wall tenderness with palpation) Cardiovascular: regular rate, rhythm, no edema, no gallop, no JVD, no murmur , normal peripheral pulses Abdomen/GI: normal bowel sounds, non tender, soft Back: no muscle spasm, + left CVA tenderness (worse with palpation) Extremities/Musculoskelatal: normal inspection, no calf tenderness, normal capillary refill, no pedal edema, normal range of motion 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, no motor/sensory deficits, alert , normal mood/affect, oriented x 3 Skin: normal color Lymphatic: no adenopathy Hospital Course This is a 46 year old male here with constitutional symptoms and possible tick- borne illness Tick-borne illness Lyme Disease 12/07 prelim blood cultures negative x2 will d/c home with twenty one days of doxycycline 12/06 appreciate ID input for now, continue Rocephin once cultures return negative, we can d/c with doxycycline x21 days 12/05 patient is feeling constitutional symptoms; including fevers/chills, sweats, muscle/joint pains completed course of doxycycline a few weeks back will restart 2G of Rocephin for now IVFs Tylenol and Toradol PRN for pain/fevers blood cultures/urine culture pending will trend cardiac enzymes, though chest pain is more like chest wall tenderness related to muscle aches consulted ID for further input DVT ppx low risk - ambulation Full Code Total time spent on discharge = 40 minutes This includes examination of the patient, discharge planning, medication reconciliation, and communication with other providers. Discharge Instructions Please follow-up with Dr. Loyd - you will get a date and time with an appointment Please follow-up with Dr. Samson, infectious disease, in 1-2 weeks You will be discharged with doxycycline 100mg twice a day for 21 days You will be discharged with tramadol for pain, please only take as needed - and do not drive if you take this
[2016-12-07 21:41] LABS: CMV DNA PCR QUANT SOURCE Plasma; CMV DNA QN REAL TIME PCR <200 IU/mL (<200)
== END 2016-12-07 12:07 | disposition home or self-care (01) | DRG 869 ==
LOC: C.EDB 05:08 → C.4E 08:02 → ENRESERV 08:22
PROVIDERS: ADMIT Family Medicine; ATTEND Family Medicine
DX: A69.20 Lyme disease, unspecified (principal); B27.10 Cytomegaloviral mononucleosis without complications; Z87.19 Personal history of other diseases of the digestive system; Z90.49 Acquired absence of other specified parts of digestive tract; Z79.2 Long term (current) use of antibiotics; Z88.0 Allergy status to penicillin; Z88.1 Allergy status to other antibiotic agents; Z88.2 Allergy status to sulfonamides; Z82.49 Family history of ischemic heart disease and other diseases of the circulatory system; Z82.69 Family history of other diseases of the musculoskeletal system and connective tissue

== ENCOUNTER → 2017-03-27 | Day surgery (SDC) | payer OTHER, BC ==
[2017-02-24 12:16] VITALS: Ht 190.5 cm; Wt 131.8 kg
[~2017-03-27] VITALS: Ht 190.5 cm; Wt 131.8 kg
[~2017-03-27] MED LIST changes: +ASPECOTC PO; +ATROPINE SULFATE 0.1 MG/ML 5ML SYR IV PRN; +CEFAZOLIN 3000MG IV PUSH 15 ML IV SCH; +DEXAMETHASONE SOD INJ 4 MG/ML VIAL ONE; -DXY100 PO; +EpHEDrine SULFATE INJ 50 MG/ML AMP IV PRN; +FENTANYL CITRATE INJ 50 MCG/1 ML 2 ML VIAL IV PRN; +FENTANYL CITRATE INJ 50 MCG/1 ML 2 ML VIAL ONE; +KETOROLAC TROMETHAMINE 30 MG/ML VIAL ONE; +LACTATED RINGER'S 1000ML 1,000 ML IV SCH; -LCTX PO; +LIDOCAINE HCL 2% 2 ML VIAL (20MG/ML) ONE; +LIDOCAINE/EPINEPHRINE 1% INJ 50 ML VIAL ONE; +MIDAZOLAM HCL 1 MG/ML 2ML VIAL ONE; +MULT-506 PO; +MoRPHine SULFATE 2 MG/ML CARP IV PRN; +MoRPHine SULFATE 4 MG/ML 1 ML CARP\\VIAL IV PRN; +NURSING VERBAL MED ORDER ONE; +ONDANSETRON INJ 2 MG/ML 2 ML VIAL IV PRN; +ONDANSETRON INJ 2 MG/ML 2 ML VIAL ONE; +OXYC-57 PO; +OXYC-737 PO; +OXYCODONE/ACETAMINOPHEN 5-325 TAB PO PRN; +PROMETHAZINE HCL INJ 6.25 MG in SODIUM CHLORIDE 0.9% 50ML 50 ML IV PRN; +PROPOFOL IV EMULSION 10 MG/ML 20 ML VIAL IV ONE; +RXC5 PO; +SODIUM CHLORIDE 0.9% 1000ML 1,000 ML IV SCH
--- NOTE | 2017-03-27 12:14 | History & Physical Bridge Note ---
H&P Re-Evaluation Bridge Note: I have examined the patient, reviewed the History & Physical and in the interval since the performance of the History & Physical I have noted the following changes of clinical significance: No changes noted
--- NOTE | 2017-03-27 13:46 | [facility] Post Operative Brief Note ---
Immediate Operative Summary Operative Date Mar 27, 2017. Pre-Operative Diagnosis Right Knee Medial Meniscus Tear Post-Operative Diagnosis Same, chondrosis medial condyle and patella Procedure(s) Performed Right Knee Arthroscopic Partial Medial Meniscectomy, Chondroplasty Surgeon Dr. Zurita Front End Software Developer Surgeon(s) Mikayla Restrepo, Fellow; Mariah Reid PA-C Estimated Blood Loss Minimal Findings as above Specimens None Anesthesia LMA Complication(s) None Disposition Recovery Room / PACU
--- NOTE | 2017-03-27 13:59 | [facility] Operative Report ---
Operative Report Operative Date Mar 27, 2017. Pre-Operative Diagnosis Right Knee Medial Meniscus Tear Post-Operative Diagnosis Same, chondrosis medial condyle and patella Procedure(s) Performed Right Knee Arthroscopic Partial Medial Meniscectomy, Chondroplasty Surgeon Dr. 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 Medial meniscus tear Specimens None Drains none Anesthesia LMA Complication(s) None Disposition Recovery Room / PACU Implants None Indications The patient's a 46-year-old male with symptoms referable to a medial meniscus tear of the right knee confirmed with examination and MRI findings. Description of Procedure Informed consent was obtained. The patient was identified as Dada Plascencia. He identified the operative site as the right knee. I marked with my initials. A prep surgical timeout was performed. Tripped dose of IV antibiotics was given. He was positioned supine on the OR table. A laryngeal mask anesthetic was administered. The knee was examined under anesthesia. The examination demonstrated full and equal range of motion logic no ligamentous laxity and no significant effusion area no tourniquet was utilized. A lateral post was used for stressing the knee. Bony prominences were inspected and padded. A routine prep and drape was performed. DVT prophylaxis with aspirin postoperatively and foot pumps intraoperatively. The knee was injected with 1% lidocaine with epinephrine for the fat pad portal sites and knee joint. Inferior lateral viewing portal superior lateral outflow portal and inferomedial working portals were established. Diagnostic arthroscopy was performed. The medial and lateral gutters were unremarkable. There were no loose bodies. The retropatellar fat pad and ligamentum mucosum were resected. The cruciate ligaments were normal. Trochlea normal. There was an area of grade 2 chondrosis 10.5 cm median ridge of the patella which was debrided. The lateral compartment was normal except for some grade 1 softening of the lateral tibial plateau. Chondral surfaces were otherwise normal and the meniscus was intact and stable to probing. Posterior lateral compartment normal. Posterior medial compartment normal. The MCL was perforated to improve visualization. A complex oblique tear of the posterior horn of the medial meniscus was noted. This was debrided back to a stable balanced and well comport rim using basket forceps and a motorized shaver. Both surfaces of the meniscus were probed to reveal any hidden flaps which was noted inferiorly and debrided. The meniscal roots were intact. The tibial plateau showed normal cartilage. The femoral condyle was normal except for an area 0.51 cm on the lateral aspect of the weightbearing area in the notch near the region over the posterior root would be. Grade 2 chondrosis was present debrided with a shaver. Scope was removed from the knee after out debriding any loose debris. The portals were closed with 4-0 nylon. A soft sterile dressing was applied. The patient was then awakened from anesthesia without difficulty and taken to the recovery room in stable condition. There were no specimens or complications. Counts are correct in the case. Blood loss was minimal. At the conclusion operation there was no unavailable to speak to. He can start his aspirin in the morning 325 mg twice a day. He'll be rehabilitated according to the arthro- scopic meniscectomy and chondroplasty protocol. I attest to the content of the Intraoperative Record and any orders documented therein. Any exceptions are noted below.
--- NOTE | 2017-03-27 14:00 | Discharge Instructions-[facility]urgCtr ---
Discharge Instructions Date of Service Mar 27, 2017. Visit Reason for Visit: Right Knee Medial Menisus Tear Discharge Discharge Diagnosis / Problem: right knee medial meniscus tear Discharge Goals Goal(s): Decrease discomfort, Improve function, Increase independence Activity Recommendations Activity Limitations: per Instructions/Follow-up section Weightbearing Status: Right weightbearing (as tolerated) Anesthesia . Post Anesthesia Instructions: If you have had General Anesthesia or IV Sedation: * Do not drive today. * Resume driving when surgeon permits. * Do not make important decisions or sign legal documents today. * Call surgeon for: 1. Temperature elevations greater than 101 degrees F. 2. Uncontrollable pain. 3. Excessive bleeding. 4. Persistent nausea and vomiting. 5. Medication intolerance (nausea, vomiting or rash). * For nausea and vomiting use only clear liquids such as: tea, soda, bouillon until nausea subsides, then gradually increase diet as tolerated. * If you have any concerns or questions, call your surgeon's office. If physician is unavailable and it is an emergency, call 911 or go to the nearest emergency room. . Instructions / Follow-Up Instructions / Follow-Up The following are instructions to follow after your Arthroscopic Knee Surgery. ACTIVITY RECOMMENDATIONS: * Minimize activity until your first visit after surgery. * No excessive walking, jogging, sports or laboring. * Return to activity is individualized. Most patients are able to return to every day activities within one month. * Return to sports or intensive labor usually occurs at 2-3 months. * Driving is not permitted until at least your first postoperative visit at a minimum. Please ask your doctor when it is safe to resume driving. If you have an automatic vehicle and your left leg has been operated on, then you may begin driving as soon as you are comfortable and can drive safely. SCHOOL/WORK RECOMMENDATIONS: * You may return to sedentary work or school when you are feeling more comfortable. This is usually 3-7 days after surgery. * Expect increased discomfort with increased activity. Continue to elevate and ice the leg as much as possible. MEDICATIONS: * You will have a prescription for pain medication and an anti-inflammatory medication after surgery. * Use the pain medication for severe pain and the anti-inflammatory for less severe pain. Once the pain medication has run out, try to use the anti-inflammatory medication. If this is not effective, contact the office for assistance. * The pain medication may cause nausea, constipation and drowsiness. You should see how they affect you before driving or similar activity. * The anti-inflammatory medication may cause stomach upset and bleeding. If this occurs let your doctor know immediately . * Take a stool softener like Colace or a laxative like Senokot to prevent constipation. DIET: * Resume previous diet. SPECIAL CARE: ICE: You have the option of an ice cooler, gel packs or ice bags. * If you have an ice cooler, refer to the instructions for that device. The ice cooler may be used continuously. * If you do not have an ice cooler, you will need to use ice bags or gel packs. Do not apply ice directly to the skin. Use a thin dressing or livia shirt between the skin and ice bag. Apply ice for 20-30 minutes and repeat every 2-4 hours. This is especially important for the first 7-10 days after surgery. Once the pain improves, use ice as needed. ELEVATION: * Keep your leg elevated at or above the level of your heart as much as possible. * Expect some increased discomfort and swelling if you are standing for any length of time. * When lying down, avoid placing anything under your knee. Rather, prop your leg up by placing several pillows under your heel or calf. DRESSING: * Your dressing will be changed at your first therapy appointment approximately 4-5 days after surgery. Band-aids, tape strips or gauze may be applied. You may then change your dressing daily. * Reapply dressing followed by the Vern wrap or Tubi-director of graduate admissions stockinet and EBIce cooling pad (if chosen). * Always wash your hands prior to touching the incision area. * Once the stitches are removed, you may leave the wound open to air or cover with an Vern wrap or Tubi-director of graduate admissions stockinet. * If you have been given a white elastic stocking (PEDRO hose), wear as much as possible for the first 1-3 weeks depending on swelling. * Expect some bloody drainage for the first few days after surgery. * Leave the tape strips, if present, in place for 5-7 days. * Band-aids and gauze may be changed daily. CRUTCHES: * You will need to use crutches after surgery. * You may gradually progress to full weight bearing as tolerated and wean off the crutches unless otherwise advised. * Your therapist can provide assistance weaning off crutches. * Patients who have a microfracture done may need to be toe-touch weight- bearing for 4-6 weeks. BATHING: * You may shower or sponge-bathe immediately after surgery. * The dressing will need to be covered with a plastic bag or plastic wrap until the dressing is changed on the fourth or fifth day after surgery. * Once the dressing has been changed on the fourth or fifth day after surgery, you may shower and get the incision wet. * Wash with regular soap and water. * Do not bathe (submerge the incision), soak, swim or use a hot tub until the incision is completely healed over with normal skin and the doctor has given the OK to proceed. * There is no need to apply any ointments, powders or salves to your incision. * Do not apply alcohol or hydrogen peroxide directly to the incision. * Diluted peroxide (50:50 mixture with sterile saline) may be used to clean dried blood from around the incision area. BRACE: * Bracing is generally not needed after routine Arthroscopic Knee surgery. THERAPY: * You will begin therapy four or five days after surgery. * Organized therapy with the therapist is important for the first 4-6 weeks after surgery. During that time you will attend therapy 1-3 times per week. * You will also need to do daily exercises for range of motion and strength as instructed. PROBLEMS/QUESTIONS: * If you have any problems such as severe pain, numbness, tingling or high fevers or if you have any questions, please contact the office at [phone]. * It is not uncommon to have some numbness and tingling after the surgery especially if you have had a nerve block done. This should gradually improve over the first 1- 2 days. If this persists longer or worsens please contact the office. FOLLOW UP VISIT: * If not already scheduled, please call the office at to schedule a follow-up appointment for 10 days, 6 weeks and 3 months after surgery. * you have a physical therapy appointment on 04/01/17 at 10:00 a.m. * You have a follow up appointment with Dr. Zurita on 04/11/17 at 7:30 a.m. Diet Recommendations Home Diet: no limitations, resume previous diet Procedures Procedures Performed: Right Knee Arthroscopic Partial Medial Meniscectomy, Chondroplasty Pending Studies Studies pending at discharge: no Medical Emergencies . Who to Call and When: Medical Emergencies: If at any time you feel your situation is an emergency, please call 911 immediately. . Non-Emergent Contact Non-Emergency issues call your: Surgeon Call Non-Emergent contact if: temperature is above 101, your pain is not controlled, your pain is worsening, wound has increased drainage, wound has increased redness, wound has increased pain . . "Provider Documentation" section prepared by Karena Reid. . [place] Drug Monitoring Program Search Results: patient reviewed within database, no issues identified
--- NOTE | 2017-03-27 14:07 | [facility] Operative Report ---
Operative Report Operative Date Mar 27, 2017. Pre-Operative Diagnosis Right Knee Medial Meniscus Tear Post-Operative Diagnosis Same, chondrosis medial condyle and patella Procedure(s) Performed Right Knee Arthroscopic Partial Medial Meniscectomy, Chondroplasty Surgeon Dr. 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 He developed sudden onset knee pain while kicking leaves. He has failed conservative treatment. X-rays obtained and found to have no bony abnormality. MRI obtained, found to have a medial meniscus tear. Surgical intervention discussed, he wished to proceed. Informed consent obtained. Description of Procedure Patient was taken to the operating room, placed under general anesthesia. He was given 3gm IV Ancef for surgical prophylaxis. Time out performed, prepped and draped in routine sterile fashion. I was present during the entire case, please see Dr. Zurita's operative report for further detail. Patient was awakened and taken to the recovery room in stable condition. I attest to the content of the Intraoperative Record and any orders documented therein. Any exceptions are noted below.
[2017-03-27 15:39] VITALS: TEMP 37.2
--- NOTE | 2017-03-27 15:54 | Anesthesia Progress Nt - [facility] ---
Anesthesia Post Op Note Date & Time Mar 27, 2017 at 15:54 Vital Signs Pain Intensity: 7.0 Vital Signs Past 12 Hours Date Time Temp Pulse Resp B/P (MAP) Pulse Ox O2 Delivery O2 Flow Rate FiO2 03/27/17 15:39 37.2 76 18 172/97 (122) 03/27/17 15:20 66 18 186/106 (132) 94 Room Air 03/27/17 15:13 72 18 03/27/17 15:13 71 18 92 03/27/17 15:12 76 24 84 03/27/17 15:12 75 24 03/27/17 15:11 159/80 03/27/17 15:07 69 14 03/27/17 15:07 68 14 97 03/27/17 15:06 183/90 03/27/17 15:06 36.9 71 16 167/92 93 Room Air 03/27/17 15:02 64 16 99 03/27/17 15:02 62 16 03/27/17 15:01 167/92 03/27/17 14:57 70 20 156/93 03/27/17 14:57 20 03/27/17 14:52 75 17 03/27/17 14:52 76 17 96 03/27/17 14:51 73 21 03/27/17 14:51 73 21 145/91 94 03/27/17 14:46 66 9 152/86 99 03/27/17 14:46 66 9 03/27/17 14:41 70 23 03/27/17 14:41 72 23 160/92 92 03/27/17 14:37 164/89 03/27/17 14:36 67 15 03/27/17 14:36 65 15 97 03/27/17 14:31 64 13 155/90 99 03/27/17 14:31 65 13 03/27/17 14:26 67 14 161/92 99 03/27/17 14:26 66 14 03/27/17 14:21 68 17 143/76 98 03/27/17 14:21 67 17 03/27/17 14:17 159/86 03/27/17 14:16 71 16 03/27/17 14:16 71 16 99 03/27/17 14:11 70 15 132/70 98 03/27/17 14:11 71 15 03/27/17 14:06 59 20 03/27/17 14:06 60 20 121/75 93 03/27/17 14:01 22 03/27/17 14:01 66 22 132/79 03/27/17 13:57 120/71 03/27/17 13:56 70 95 03/27/17 13:56 70 03/27/17 13:56 36.6 69 16 120/71 96 Mask 6 03/27/17 09:42 36.9 69 22 150/96 (114) 95 Room Air Notes Mental Status: alert / awake / arousable, participated in evaluation Pt Amnestic to Procedure: Yes Nausea / Vomiting: adequately controlled Pain: adequately controlled Airway Patency, RR, SpO2: stable & adequate BP & HR: stable & adequate Hydration State: stable & adequate Anesthetic Complications: no major complications apparent
[2017-03-27 15:59] VITALS: O2SAT 95
[2017-03-27 16:08] VITALS: BP 180/83; PULSE 76
== END | disposition home or self-care (01) ==
LOC: X.SURG 09:28
PROVIDERS: ATTEND Physical Medicine & Rehabilitation Sports Medicine
DX: S83.241A Other tear of medial meniscus, current injury, right knee, initial encounter (principal); M22.2X1 Patellofemoral disorders, right knee; X50.0XXA Overexertion from strenuous movement or load, initial encounter; Y93.H2 Activity, gardening and landscaping; I10 Essential (primary) hypertension; G47.33 Obstructive sleep apnea (adult) (pediatric)

== ENCOUNTER 2023-10-29 05:04 | Observation (INO) ==
--- NOTE | 2023-10-15 14:06 | PAT Medication Instructions ---
Medication Instructions Date of Service October 15, 2023 Home Medications Medication Instructions Recorded tramadol 50 mg tablet 50 mg PO BID PRN pain #30 tabs 09/24/23 multivitamin 1 tab PO QAM sildenafil 100 mg tablet 100 mg PO UD tramadol 50 mg tablet 50 mg PO BID PRN pain DO NOT take the morning of surgery multivitamin 1 tab PO QAM sildenafil 100 mg tablet 100 mg PO UD Take morning of surgery With a small sip of water, OTHERWISE NOTHING TO EAT OR DRINK AFTER MIDNIGHT: tramadol 50 mg tablet 50 mg PO BID PRN pain (if needed) Other Notes If you have any questions please call us at [phone] or [phone] or [phone] or [phone]
--- NOTE | 2023-10-20 14:13 | Anesthesiology Consultation ---
Date of Service October 20, 2023 Assessment & Plan (1) Encounter for pre-operative examination: - Outpatient joint assessment: Patient is currently scheduled for inpatient pathway. If re-evaluated and patient/surgeon requests outpatient pathway, patient is acceptable candidate for outpatient joint program from anesthesia standpoint pending surgeon's office assessment of pt motivation/support/completion of same day joint program preop requirements. Chart Review Chart Review: Acceptable Risk for Surgery and Patient seen in Pre Admission Testing Teaching & Discussion Pre-Anesthesia Teaching/Discussion Notes: Instructed NPO after midnight before surgery, except medications with 15 cc of water. Medication instructions provided according to the PAT guidelines. History Surgery Operation Date: 10/29/23 07:00 Proposed Procedures p Right Total Hip Arthroplasty - Elmer Bowles MD Height/Weight Height: 6 ft 3.25 in Weight: 121.5 kg Allergies Allergy/AdvReac Type Severity Reaction Status Date / Time ciprofloxacin Allergy Intermediate rash. Verified 10/29/23 05:36 chest tightness. SOB. dizziness metronidazole Allergy Intermediate rash. Verified 10/29/23 05:36 chest tightness. SOB. dizziness sulfamethoxazole Allergy Intermediate RASH Verified 10/29/23 05:36 trimethoprim Allergy Intermediate RASH Verified 10/29/23 05:36 Penicillins Allergy Unknown VOMITING, Verified 10/29/23 05:36 CHEST PAIN Medications Home Medications Medication Instructions Recorded Confirmed Last Taken multivitamin 1 tab PO QAM 12/14/17 10/29/23 10/28/23 08:00 sildenafil 100 mg tablet 100 mg PO UD PRN Sexual Activity 09/03/18 10/29/23 08/28/23 tramadol 50 mg tablet 50 mg PO BID PRN pain #30 tabs 09/24/23 10/29/23 Unknown walker #1 ea 10/20/23 10/22/23 Unknown 3-in-1 Commode #1 ea 10/27/23 Unknown acetaminophen 500 mg tablet 1,000 mg (2 x 500 mg) PO TID pain 10/27/23 10/29/23 Unknown (Tylenol Extra Strength) 30 days #180 tabs aspirin 81 mg tablet,delayed 81 mg PO BID 45 days #90 tabs 10/27/23 10/29/23 Unknown release (Ezequiel Low Dose Aspirin) ketorolac 10 mg tablet 10 mg PO Q6 pain 5 days #20 tabs 10/27/23 10/29/23 Unknown ondansetron 4 mg disintegrating 4 mg PO Q8 PRN nausea #20 tabs 10/27/23 10/29/23 Unknown tablet sennosides 8.6 mg tablet (Senokot) 8.6 mg PO BID prevent constipation 10/27/23 10/29/23 Unknown 14 days #28 tabs tamsulosin 0.4 mg capsule (Flomax) 0.4 mg PO DAILY #7 caps 10/27/23 10/29/23 Unknown tramadol 50 mg tablet 50 - 100 mg (1 - 2 x 50 mg) PO Q6 10/27/23 10/29/23 Unknown PRN pain #40 tabs Active Medications Generic Name Dose Route Start Last Admin Trade Name Freq PRN Reason Stop Dose Admin Dexamethasone Sodium Phosphate 10 mg 10/29/23 06:00 10/29/23 06:15 DexamethasonePf 10 Mg/Ml Vial IV 10/29/23 07:00 10 mg PREOP YUMIKO Administration Lactated Ringer's 1,000 mls @ 15 mls/hr 10/29/23 06:00 10/29/23 05:43 Lr IV 10/29/23 18:00 15 mls/hr .Q24H YUMIKO Administration Tranexamic Acid 1,000 mg in 100 mls @ 600 mls/hr 10/29/23 06:00 10/29/23 06:42 Tranexamic Acid / 0.7% Nacl IV 10/29/23 07:00 600 mls/hr 0600 YUMIKO Administration Past Medical History Medical History Cardiomegaly no cards Chronic back pain Diverticular disease (~2003) no recent issues Foot drop, right foot happens off and on History of COVID-19 (~01/2023) denies hospitalization-resolved History of mononucleosis (~2017) History of sleep apnea resolved with surgery and weight loss. HTN (hypertension) he notes improvement with intentional weight loss-notes occasional elevation with hip pain Lyme disease (~2017) denies residual effects Osteoarthritis Patient denies h/o stroke, seizures, heart attack, heart failure, DM, blood clots/DVTs or blood transfusions. Exercise / Class Metabolic Activity III < 4 Walking/Shop/Light housework (denies chest discomfort or shortness of breath with usual activities-activity limited due to hip pain) Past Family History Family History Other No family history of adverse response to anesthesia Past Surgical History Surgical History H/O colonoscopy H/O hernia repair 08/28/20 LMA#5.> left inguinal History of adenoidectomy History of arthroscopy of both knees History of arthroscopy of right shoulder History of back surgery repair of lower discs L4 and 5, bleachers had fallen on patient, then several injections afterward > remote hx over 12 years ago History of esophagogastroduodenoscopy (EGD) History of tonsillectomy Hx of knee surgery bilat S/P left inguinal hernia repair Laparoscopic Left Recurrent Inguinal Hernia Repair with Mesh with Extensive Enterolysis(Left) - Carmelo Polanco, DO Status post partial colectomy for diverticulitis-s/p colostomy reversal Status post uvulopalatopharyngoplasty Past Anesthesia History No Hx of Anesthesia Complications and No Family Hx of Anesthesia Complications History of PONV No Hx of PONV and No Hx of Motion Sickness Social History Smoking Status: Never smoker Do You Dip or Chew Tobacco: No Hx Alcohol Use: Yes Alcohol type: beer alcohol intake frequency: a few times a week Hx Substance Use: No substance use type: does not use Review of Systems Patient denies chest pain, shortness of breath, dyspnea on exertion, reflux, fever, chills, cough, wheezing, or palpitations. Physical Exam Vital Signs Last Vital Signs Temp 36.7 C 10/29/23 05:30 Pulse 67 10/29/23 05:30 Resp 20 10/29/23 05:30 BP 158/95 H 10/29/23 05:30 Pulse Ox 96 10/29/23 05:30 O2 Del Method Room Air 10/29/23 05:30 Vitals BP 147/88 P 63 TEMP 97.8 SP02 96% on RA RESP 18 Physical Patient resting comfortably in chair in no acute distress, alert and oriented, responding appropriately throughout visit Full cervical extension range of motion without pain TMD < 3 finger breadths Mallampati Score 3 Dentition: front upper teeth capped, denies chipped or loose teeth, crowns, implants or bridges Lungs: normal respiratory effort. Good air movement, clear throughout to auscultation, no adventitious breath sounds Cardiac: regular rate and rhythm, no murmurs noted Carotid arteries: negative bruit bilat Lab Results Anesthesia Preop Results Results Anesthesia Widget: WBC 7.21 K/ul (4.8-10.8) 10/20/23 Hgb 15.0 g/dl (14.0-18.0) 10/20/23 Hct 46.0 % (42.0-52.0) 10/20/23 Plt 274 K/uL (130-400) 10/20/23 Na 141 mmol/L (136-145) 10/20/23 K 4.9 mmol/L (3.5-5.1) 10/20/23 Cl 104 mmol/L (98-107) 10/20/23 CO2 30 mmol/L (21-32) 10/20/23 BUN 21 mg/dl (6-23) 10/20/23 Creat 0.97 mg/dl (0.6-1.4) 10/20/23 Glucose Level 102 mg/dl (70-99(Fasting)) H 10/20/23 PT 10.6 Seconds (9.0-12.0) 10/20/23 PTT 26 Seconds (21-31) 10/20/23 INR 1.0 (0.9-1.1) 10/20/23 Blood Type A Negative 10/20/23 Antibody Screen NEGATIVE 10/20/23 Testing Electrocardiogram Date: 08/14/23 NSR, rate 60 bpm Incomplete RBBB Chest X-Ray Date: 10/20/23 Cardiomegaly with no active disease in the chest.
[~2023-10-29 05:04] MED LIST changes: -ASPECOTC PO; +ATROPINE SULFATE 0.1 MG/ML 10ML SYR IV PRN; -ATROPINE SULFATE 0.1 MG/ML 5ML SYR IV PRN; -CEFAZOLIN 3000MG IV PUSH 15 ML IV SCH; +DC INTRASPINAL MORPHINE SCH; -DEXAMETHASONE SOD INJ 4 MG/ML VIAL ONE; -EpHEDrine SULFATE INJ 50 MG/ML AMP IV PRN; -FENTANYL CITRATE INJ 50 MCG/1 ML 2 ML VIAL IV PRN; -FENTANYL CITRATE INJ 50 MCG/1 ML 2 ML VIAL ONE; -KETOROLAC TROMETHAMINE 30 MG/ML VIAL ONE; +LACTATED RINGER'S 1,000 ML IV PRN; -LACTATED RINGER'S 1000ML 1,000 ML IV SCH; +LACTATED RINGER'S 500 ML IV PRN; -LIDOCAINE HCL 2% 2 ML VIAL (20MG/ML) ONE; -LIDOCAINE/EPINEPHRINE 1% INJ 50 ML VIAL ONE; -MIDAZOLAM HCL 1 MG/ML 2ML VIAL ONE; -MULT-506 PO; -MoRPHine SULFATE 2 MG/ML CARP IV PRN; -MoRPHine SULFATE 4 MG/ML 1 ML CARP\\VIAL IV PRN; +MoRPHine SULFATE PF 1 MG/ML 10 ML AMP/VIAL INT SPINAL ONE; +NALBUPHINE HCL 5 MG in SYRINGE 0 ML IV PRN; +NALOXONE HCL 0.08 MG in SYRINGE 1.8 ML IV PRN; +NALOXONE HCL 0.4 MG/1 ML VIAL/CARP IV PRN; +NALOXONE HCL 1 MG in SODIUM CHLORIDE 0.9% 1,000 ML IV PRN; +NO NARCOTICS OR SEDATIVES SCH; -NURSING VERBAL MED ORDER ONE; -ONDANSETRON INJ 2 MG/ML 2 ML VIAL IV PRN; -ONDANSETRON INJ 2 MG/ML 2 ML VIAL ONE; -OXYC-57 PO; -OXYC-737 PO; -OXYCODONE/ACETAMINOPHEN 5-325 TAB PO PRN; -PROMETHAZINE HCL INJ 6.25 MG in SODIUM CHLORIDE 0.9% 50ML 50 ML IV PRN; -PROPOFOL IV EMULSION 10 MG/ML 20 ML VIAL IV ONE; -RXC5 PO; +SODIUM CHLORIDE 0.9% 1,000 ML IV SCH; -SODIUM CHLORIDE 0.9% 1000ML 1,000 ML IV SCH; +[UNRECOGNIZED DRUG - REMARK] SCH; +diphenhydrAMINE 50 MG/ML VIAL IV PRN; +ePHEDrine sulfate 50 MG/ML AMP IV PRN
[2023-10-29] MEDS: LR 500ML BOLUS, THEN 15ML/HR IV SCH (05:43)
[2023-10-29] MEDS: ACETAMINOPHEN 500 MG TAB PO SCH ×2 (06:14→17:16)
[2023-10-29] MEDS: FAMOTIDINE 20 MG TAB PO SCH (06:15)
[2023-10-29] MEDS: METOCLOPRAMIDE HCL 10 MG TABLET PO SCH (06:15)
[2023-10-29] MEDS ORDERED: BUPIVACAINE 0.5 % 5 MG/1 ML PF 10ML VIAL ONE (06:15)
[2023-10-29] MEDS: dexAMETHasone**PF** 10 MG/ML VIAL IV SCH (06:15)
[2023-10-29] MEDS: CeleBREX 200 MG CAP PO SCH (06:15)
[2023-10-29] MEDS: SCOPOLAMINE 1 MG/72 HR TDSY PATCH TD SCH (06:15)
[2023-10-29] MEDS ORDERED: MIDAZOLAM HCL 1 MG/ML 2ML VIAL ONE (06:33)
[2023-10-29] MEDS ORDERED: LIDOCAINE 2% 2 ML VIAL/AMP(20MG/ML) INFIL ONE (06:33)
[2023-10-29] MEDS ORDERED: PROPOFOL IV EMULSION 10 MG/ML 20 ML VIAL IV ONE ×2 (06:33→07:47)
[2023-10-29] MEDS ORDERED: ONDANSETRON INJ 2 MG/ML 2 ML VIAL ONE (06:33)
[2023-10-29] MEDS ORDERED: MoRPHine SULFATE PF 1 MG/ML 10 ML AMP/VIAL ONE (06:39)
[2023-10-29] MEDS: TRANEXAMIC ACID / 0.7% NACL 1,000 MG/100 ML BAG IV SCH (06:42)
--- NOTE | 2023-10-29 06:46 | History & Physical Bridge Note ---
Date of Service October 29, 2023 History & Physical Bridge Note I have examined the patient, reviewed the History & Physical and in the interval since the performance of the History & Physical I have noted the following changes of clinical significance: no changes noted
[2023-10-29] MEDS: ceFAZolin 3000MG 3,000 MG/72.5 ML BAG IV SCH (07:00)
[2023-10-29] MEDS: BUPIVACAINE/EPINEPHRINE 0.5% MPF 1:200,000 30 ML VIAL ONE (07:44)
--- NOTE | 2023-10-29 08:37 | Operative Report ---
PG Post Operative Report Pre & Post Diagnosis Operation Date: 10/29/23 07:00 Pre-Op Diagnosis: Right Hip Degenerative Joint Disease Post-Op Diagnosis: Right Hip Degenerative Joint Disease I identified the patient and participated in the time-out.: Yes Procedure Operation Date: 10/29/23 07:00 Actual Procedures p Right Total Hip Arthroplasty, Uncemented(Right) - Elmer Bowles MD Surgeon Elmer Bowles MD Stand Up Forklift Operator Garry French PA-C Estimated Blood Loss 200 Findings Consistent with Post-Op Diagnosis Specimens Right femoral head sent for pathology. Anesthesia Type Spinal MAC Complications none Disposition Accompanied Patient To Recovery: No Indications Patient is a 53-year-old gentleman is had a long history of bilateral hip pain discomfort is gotten worse over the past several years. He has been through extensive conservative treatment over time which became less successful. Pains become more debilitating. X-ray shows advanced hip arthritis on both sides. The right side was bit worse than left. He elected proceed with right total hip arthroplasty. Description of Procedure Operative implants consist of: 1. Biomet G7 size 56 mm acetabular shell. 2. Brule hole desizing machine back tender. 3. Highly cross-linked polyethylene liner with a 56 mm outer diam and 36 mm inner diameter. 4. DePuy Karaya size 13 KLA femoral stem. 5. +5/36 mm ceramic articular ball. 6. 6.5 cancellous acetabular screws 1 of 35 mm length and 1 of 25 mm length. The patient was taken the operating, identified, placed on the operating table in the supine position. All contact areas were appropriately padded. IV antibiotics tried by anesthesia team. A spinal anesthetic and been implemented holding area. The patient was then placed in the left lateral decubitus position. Axillary roll was placed. Stulberg hip positioner was used for positioning. The right hip and leg were then prepped and draped in usual sterile fashion. A posterolateral approach to the right hip was then performed through a curvilinear incision centered over the greater trochanter. Sharp dissection was carried through subcutaneous tissue down to level the IT band gluteal fascia with the IT band gluteal fascia incised longitudinally in line with skin incision. The underlying greater bursa was excised. The piriformis and external rotators along with the posterior hip joint capsule were then released from the posterior aspect hip as a single layer. Great care was taken throughout the procedure to protect the sciatic nerve at all times. Hip was internally rotated and dislocated. Femoral neck osteotomy cut was made with a Final Cut about 20 mm above the lesser trochanter. Femoral head was removed and sent for pathology. The femur was retracted anteriorly. Attention drawn the acetabulum. The acetabular labrum was excised. The pulmonary fat was excised. Sequential reaming the acetabular was then performed again with a size 47 and progressing up to 55. I reamed a little bit with a 56 reamer. A 56 mm Biomet G7 acetabular shell was then placed in about 40 degrees lateral opening and 20 degrees of anteversion. It was fixed with two 6.5 cancellous screws. Anterior acetabular osteophyte was removed. Trial liner was placed. Attention drawn the femur. The femur was then entered with a Redux cutter followed by canal finder. I broached beginning with size 8 and progressing up to a 13. Get excellent fitted to 13. Did not think I could likely get the 14 down. We trialed the hip and the hip was fully stable in full extension and external rotation flexion to 90 degrees internal rotation to over 50 degrees. Leg lengths appear equal. We elect to place these implants. All trial implants were removed. An apex hole desizing machine back tender was placed. Highly cross-linked polyethylene liner was placed. A DePuy Realie size 13 KLA femoral stem was impacted in position. A +5/36 mm ceramic articular ball was placed. Hip was located and once again found to be stable. Attention drawn toward cl osing. The wound was irrigated cosigns pulsatile lavage solution. I did inject locally with 60 cc of half percent Marcaine with epinephrine. The posterior capsule and external rotators were then repaired through drill holes in the posterior trochanter with #2 Tycron suture. The IT band gluteal fascia then closed with #1 PDS suture in a running fashion through the subcutaneous tissue then closed with 2 layers of the deep layer #1 Vicryl suture subcutaneous tissue with 2-0 Dexon suture in a buried interrupted fashion. Skin was then closed with skin stephanie. Leg was then cleaned and dried and sterile dressing with Xeroform, 4 fours, sterile ABD pad and foam tape was applied. The patient then transferred to the recovery room in stable condition. Patient tolerated procedure well and there were no complications. Garry French, my physician liaison inspection laboratory assistant, was present for the entire procedure. His assistance was essential and required for appropriate patient positioning, prepping and draping, surgical exposure, performing the technical details of the operation, placement the implants, closure of the wound, and placement of the sterile bandage. I attest to the content of the Intraoperative Record and any orders documented therein. Any exceptions are noted below.
--- NOTE | 2023-10-29 09:41 | Anesthesiology Progress Note ---
Date of Service October 29, 2023 Anesthesia Post Procedure Vital Signs Vital Signs: Temp Pulse Pulse Resp BP Pulse Ox O2 Del Method 10/29/23 09:05 36.6 C 69 16 154/94 H 94 Room Air 10/29/23 08:55 36.5 C 66 16 145/69 H 95 Room Air 10/29/23 08:45 73 16 149/68 H 95 Room Air 10/29/23 08:35 70 16 142/70 H 99 Oxymask 10/29/23 08:27 36.6 C 78 15 136/64 96 Oxymask 10/29/23 05:30 36.7 C 67 20 158/95 H 96 Room Air O2 Flow Rate 10/29/23 09:05 10/29/23 08:55 10/29/23 08:45 10/29/23 08:35 4 10/29/23 08:27 6 10/29/23 05:30 Transfer of Care Handoff Completed per policy Notes Mental Status: alert / awake / arousable and participated in evaluation Nausea / Vomiting: adequately controlled Pain: adequately controlled Airway Patency, RR, SpO2: stable & adequate BP & HR: stable & adequate Hydration State: stable & adequate Anesthetic Complications: no major complications apparent and Pt Satisfied with anesthetic care
--- NOTE | 2023-10-29 12:00 | XRay Report ---
XR hip 1V RT w pelvis HISTORY: 53 years-old Male IN PACU - Post Surgical right hip arthroplasty COMPARISON: 10/20/2023 TECHNIQUE: AP view the pelvis with 2 views of the right hip FINDINGS: Moderate to severe left hip osteoarthritis. Satisfactory alignment of the right hip arthroplasty. Ove rlying skin stephanie are noted along with expected postoperative soft tissue swelling and deep tissue air. No acute fracture, dislocation or on expected of a body. IMPRESSION: Right hip arthroplasty with expected postoperative changes. ACT 112: Negative or not required by law. The above report was generated using voice recognition software. It may contain grammatical, syntax o r spelling errors. Electronically signed by: Romel Skelton M.D. 10/29/2023 11:59 AM
[2023-10-29] MEDS ORDERED: ePHEDrine sulfate 50 MG/ML AMP IV PRN (13:56)
[2023-10-29] MEDS ORDERED: LACTATED RINGER'S 500 ML IV PRN (13:56)
[2023-10-29] MEDS ORDERED: NALOXONE HCL 0.08 MG in SYRINGE 1.8 ML IV PRN (13:56)
[2023-10-29] MEDS ORDERED: diphenhydrAMINE 50 MG/ML VIAL IV PRN (13:56)
[2023-10-29] MEDS ORDERED: MEPERIDINE HCL 25 MG/ML CARP/VIAL IV PRN (13:56)
[2023-10-29] MEDS ORDERED: NALOXONE HCL 0.4 MG/1 ML VIAL/CARP IV PRN ×2 (13:56→16:04)
[2023-10-29] MEDS ORDERED: NALBUPHINE HCL 5 MG in SYRINGE 0 ML IV PRN (13:56)
[2023-10-29] MEDS ORDERED: NALOXONE HCL 1 MG in SODIUM CHLORIDE 0.9% 1,000 ML IV PRN (13:56)
[2023-10-29] MEDS ORDERED: DC INTRASPINAL MORPHINE SCH (14:00)
[2023-10-29] MEDS ORDERED: NO NARCOTICS OR SEDATIVES SCH (14:00)
[2023-10-29] MEDS: ONDANSETRON INJ 2 MG/ML 2 ML VIAL IV STA (15:07)
[2023-10-29] MEDS: ceFAZolin 2000MG 2,000 MG/15 ML SYR IV SCH ×2 (15:10→17:34)
[2023-10-29] MEDS ORDERED: MAGNESIUM HYDROXIDE SUSP 30 ML UDC PO PRN (16:04)
[2023-10-29] MEDS ORDERED: SENNA 8.6 MG TAB PO SCH (16:04)
[2023-10-29] MEDS: traMADol HCL 50 MG TABLET ONE (16:04)
[2023-10-29] MEDS ORDERED: ALUMINUM/MAGNESIUM SUSP 30 ML UDC PO PRN (16:04)
[2023-10-29] MEDS ORDERED: NON-FORMULARY MEDICATION (Sildenafil 100 mg tablet) PO PRN (16:04)
[2023-10-29] MEDS ORDERED: bisacodyL 10 MG SUPP PR PRN (16:04)
[2023-10-29] MEDS ORDERED: traMADol HCL 50 MG TABLET PO PRN (16:04)
[2023-10-29] MEDS: ceFAZolin 2,000 MG/15 ML IV PUSH IV ONE (16:28)
[2023-10-29] MEDS: SODIUM CHLORIDE 0.9% 1,000 ML IV SCH ×2 (16:28→17:16)
[2023-10-29] MEDS: CHECK SCOPOLAMINE PATCH PLACEMENT SCH (16:29)
[2023-10-29] MEDS: NON-FORMULARY MEDICATION (Multivitamin Tablet) PO SCH (17:30)
[2023-10-29] MEDS: MoRPHine SULFATE PF 1 MG/ML 10 ML AMP/VIAL INT SPINAL ONE (17:34)
[2023-10-29] MEDS: MULTIVITAMIN TAB PO SCH (18:35)
[2023-10-29] MEDS: KETOROLAC 30 MG/ML VIAL IV SCH (18:35)
[2023-10-29] MEDS: ASPIRIN 81 MG ECTAB PO SCH (18:35)
[2023-10-29] MEDS: ASCORBIC ACID 500 MG TAB PO SCH (18:36)
[2023-10-29] MEDS: TAMSULOSIN HCL 0.4 MG CAP PO SCH (18:36)
[2023-10-29] MEDS: SENNA 8.6 MG TAB PO SCH (20:58)
[2023-10-29] MEDS: DOCUSATE SODIUM 100 MG CAP PO SCH (20:59)
[2023-10-30 06:05] LABS: Basophils # (auto) 0.04 K/uL (0.00-0.20); Basophils % (auto) 0.3 %; Eosinophils # (auto) 0.02 K/uL (0.00-0.50); Eosinophils % (auto) 0.2 %; Hematocrit (blood only) 33.3 % (42.0-52.0); Hemoglobin 11.2 g/dl (14.0-18.0); Immature Granulocytes # (auto) 0.05 K/uL (0.01-0.20); Immature Granulocytes % (auto) 0.4 %; Lymphocytes # (auto) 1.75 K/uL (1.20-3.40); Lymphocytes % (auto) 14.2 %; Mean Corpuscular Hgb Conc 33.6 g/dL (32.0-36.0); Mean Corpuscular Volume 92.2 fL (80.0-100.0); Mean Platelet Volume 10.1 fL (9.4-12.4); Monocytes # (auto) 1.72 K/uL (0.11-0.59); Monocytes % (auto) 13.9 %; Neutrophils # (auto) 8.75 K/uL (1.40-6.50); Platelet Count 189 K/uL (130-400); RDW Coefficient of Variation 12.4 % (11.5-14.5); RDW Standard Deviation 42.3 fL (36.4-46.3); Red Blood Count 3.61 M/uL (4.70-6.10); White Blood Count 12.33 K/ul (4.8-10.8)
[2023-10-30 06:26] LABS: BUN Creatinine Ratio 23.1 (10-20); Calcium 8.7 mg/dl (8.6-10.3); Est GFR (African American) 111.9 ml/min; Est GFR (Non-African American) 96.6 ml/min
[2023-10-30] MEDS: dexAMETHasone 10 MG in SYRINGE 0 ML IV SCH (07:23)
[2023-10-30] MEDS ORDERED: METOCLOPRAMIDE HCL INJ 5 MG/ML 2 ML VIAL IV PRN (07:56)
[2023-10-30] MEDS ORDERED: ONDANSETRON INJ 2 MG/ML 2 ML VIAL IV PRN (07:56)
[2023-10-30] MEDS ORDERED: traMADol HCL 50 MG TABLET PO PRN (07:56)
[2023-10-30] MEDS ORDERED: HYDROmorphone INJ 0.5 MG/0.5 ML SYR IV PRN (07:56)
[2023-10-30] MEDS ORDERED: diphenhydrAMINE Capsule 25 MG CAP PO PRN (07:56)
--- NOTE | 2023-10-30 09:10 | Orthopedic Progress Note ---
Date of Service October 30, 2023 Assessment & Plan (1) S/P total right hip arthroplasty: Seen and examined by Dr. Bowles. Doing better today. D/c planning: home with home health today PT/OT wbat, total hip precautions. DVT prophylaxis: teds, scd's, aspirin Subjective . 53 year old patient POD #1 from right anahi. Stayed over night due to some nausea and lightheadedness post op. Doing better today. No other complaints. Pain controlled. Review of Systems All systems reviewed & are unremarkable except as noted in HPI & below. Physical Exam . alert and oriented. NAD. VSS Right hip: dressing intact. Able to dorsiflex and plantarflex. Hip located. NVI Results & Data Results & Data Laboratory Results . Diagnostic Findings . PG Care Time/CCT Total # of Minutes Spent Total Time Spent with Patient: Total time spent is greater than 50% in coordination of care (as documented) at patient's floor/unit and/or counseling patient: Coding Level of Care Code 57438 Post Operative Follow-Up Diagnoses S/P total right hip arthroplasty Z96.641
== END 2023-10-30 11:32 | disposition home health service (06) ==
LOC: 3E 05:04 → ASU 05:04

== ENCOUNTER 2024-01-29 05:07 | Observation (INO) ==
--- NOTE | 2024-01-26 07:52 | History & Physical Report ---
Date of Service January 26, 2024 Assessment & Plan (1) Arthritis of left hip: 53-year-old gentleman now 3 months out from a right hip replacement with persistent left hip pain discomfort. He is happy with the right hip and like to have his left hip replaced. Plan: When taken to the operating room and proceed with a left hip replacement. The risks Mente this procedure explained and he understands. Will do the best we can to get his leg lengths equal. Hopefully this will continue to help with his knee pain. Will likely stay in the hospital overnight and discharge postoperative day 1. Will plan on DVT prophylaxis including thigh-high teds, SCDs, aspirin twice a day. (2) S/P total right hip arthroplasty: History of Present Illness Chief Complaint: . Persistent left hip pain. Primary Care Provider: Renato Cramer MD . Patient is a 53-year-old gentleman now about 3 months out from a right total hip replacement. Pain continues to improve. He is continue to have persistent progressive increased pain discomfort in his left hip. Scribes groin pain, thigh pain rating down to his knee. No numbness. He would like to have his left hip replaced. Allergies Allergy/AdvReac Type Severity Reaction Status Date / Time ciprofloxacin AdvReac Intermediate Rash/Chest Verified 01/23/24 10:10 Tightness/SOB/Dizziness metronidazole AdvReac Intermediate Rash/Chest Verified 01/23/24 10:10 Tightness/SOB/Dizziness Penicillins AdvReac Intermediate Chest Verified 01/23/24 10:10 Pain/Vomiting sulfamethoxazole AdvReac Intermediate Rash Verified 01/23/24 10:10 trimethoprim AdvReac Intermediate Rash Verified 01/23/24 10:10 Home Medications Medication Instructions Recorded Confirmed Type multivitamin 1 tab PO QAM 12/14/17 01/23/24 History sildenafil 100 mg tablet 100 mg PO UD PRN Sexual Activity 09/03/18 01/23/24 History walker #1 ea 10/20/23 01/22/24 Rx 3-in-1 Commode #1 ea 10/27/23 01/22/24 Rx acetaminophen 500 mg tablet 1,000 mg (2 x 500 mg) PO TID pain 10/27/23 01/23/24 Rx (Tylenol Extra Strength) 30 days #180 tabs Walking Cane #1 ea 11/17/23 01/22/24 Rx ibuprofen 200 mg tablet 400 mg PO Q6H PRN Pain 01/23/24 01/23/24 History tamsulosin 0.4 mg capsule (Flomax) 0.4 mg PO HS 01/23/24 01/23/24 History Past Med/Surg History Problem List Ascending aorta dilation Arthritis of left hip S/P total right hip arthroplasty S/P left inguinal hernia repair Laparoscopic Left Recurrent Inguinal Hernia Repair with Mesh with Extensive Enterolysis(Left) - Carmelo Polanco, Degenerative arthritis of knee, bilateral S/P left inguinal hernia repair (09/11/23) Laparoscopic Left Recurrent Inguinal Hernia Repair with Mesh with Extensive Enterolysis(Left) - Carmelo Polanco, Recurrent left inguinal hernia Greater trochanteric pain syndrome Bilateral primary osteoarthritis of hip Right hip pain Right inguinal hernia Recurrent left inguinal hernia Epididymal cyst 01/02/22 Hydrocele 01/02/22 Varicocele Left groin pain 01/02/22 History of back problems History of hernia repair Scrotal pain 01/16/21 Testicular lesion 01/16/21 History of arthroscopy of both knees History of arthroscopy of left shoulder pt denies Hypertension (Chronic) Status post partial colectomy (Chronic) "diverticulitis" History of colonic diverticulitis (Chronic) Medical History PONV (postoperative nausea and vomiting) Adverse effect of anesthesia 10/29/23 Right JOSE - as per patient had a reaction to he thinks the morphine in epidural. Dr Bowles aware - extensive time after surgery still had itching/feverish/unable to walk Ascending aorta dilation 01/22/24 [facility] - Echo scheduled 01/27/24 1400 Encounter for pre-operative examination History of mononucleosis (~2017) HTN (hypertension) he notes improvement with intentional weight loss-notes occasional elevation with hip pain/white coat syndrome Diverticular disease (~2003) no recent issues History of COVID-19 (~01/2023) denies hospitalization-resolved Osteoarthritis Foot drop, right foot Daily - depending on activity Cardiomegaly 01/22/24 [facility] - Echo scheduled 01/27/24 1400 History of sleep apnea resolved with surgery and weight loss Lyme disease (~2018) denies residual effects - completed antibiotic tx - any flares gets doxycycline Chronic back pain Surgical History S/P left inguinal hernia repair (09/2023) Laparoscopic Left Recurrent Inguinal Hernia Repair with Mesh with Extensive Enterolysis(Left) - Carmelo Polanco DO History of total right hip arthroplasty 10/29/23 [facility] History of back surgery repair of lower discs L4 and 5, bleachers had fallen on patient, then several injections afterward > remote hx over 12 years ago History of tonsillectomy History of adenoidectomy History of arthroscopy of right shoulder Status post partial colectomy for diverticulitis-s/p colostomy reversal History of arthroscopy of both knees H/O hernia repair 08/28/20 LMA#5.> left inguinal H/O colonoscopy History of esophagogastroduodenoscopy (EGD) Status post uvulopalatopharyngoplasty Family History Other No family history of adverse response to anesthesia Social History Smoking Status: Never smoker Second Hand Exposure: No; Do You Dip or Chew Tobacco: No; Hx Alcohol Use: Yes Alcohol type: beer Alcohol Intake Frequency: Monthly or Less Hx Substance Use: No Preferred Language: Moldovan Communication Ability: Effective Communication Ability Comment: Employed in [employer]. Lives with significant other. 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 Physical Exam . Physical examination was a pleasant middle-age male. Looks be in good health. Examination of the left hip reveal patient to well walks with a slight bit of a limp. He is about a half a centimeter shorter on the left side compared to the right. He is got pain and stiffness with hip rotation. Internal rotation in neutral. Negative straight leg raise. He is neurologically intact. Constitutional WD/WN, vitals as above Neck trachea midline, no thyromegaly Respiratory normal respiratory effort, lungs clear to auscultation Cardiovascular RRR, no murmur, no edema Gastrointestinal (Abdomen) normal bowel sounds, soft, nontender, no hepatosplenomegaly Results & Data Results & Data Laboratory Results . Diagnostic Findings . X-rays of the hips reveal a right uncemented hip replacement. Components look me in good position. He does have advanced left hip arthritis. He is got 50 to 75% loss of the joint space. Got osteophytes inferiorly. PG Care Time/CCT Total # of Minutes Spent Total Time Spent with Patient: Total time spent is greater than 50% in coordination of care (as documented) at patient's floor/unit and/or counseling patient: Coding Level of Care Code None Diagnoses Arthritis of left hip M16.12 S/P total right hip arthroplasty Z96.641
--- NOTE | 2024-01-28 08:34 | Anesthesiology Consultation ---
Date of Service January 28, 2024 Assessment & Plan (1) Encounter for pre-operative examination: Chart Review Chart Review: Acceptable Risk for Surgery (pending anesthesia evaluation DOS ) and Patient NOT seen in Pre Admission Testing - Coags DOS to anesthesiologist discretion DOS (coags WNL 10/2023) With right JOSE in 10/2023- patient was pruritic post op, felt feverish, unable to ambulate post op - ended up being changed from OPJ to 23 hour obs. Per patient and surgeon records- possible reaction to morphine vs the amount of morphine in SAB. Will leave type of anesthesia to anesthesiologist DOS - Patient not an ideal OPJ due to previous issues with right JOSE (currently 23 hour obs) -Infectious Disease screening: Per PAT nursing assessment on 01/23/24. No known infectious disease contacts in past 10 days or current infectious disease symptoms. No recent travel outside the country. Patient seen by cardio 01/22/24= seen to establish care for cardiomegaly and dilated ascending aorta. Cardiomegaly- recommend ECHO to further evaluate. Euvolemic. Dilated ascending aorta- mild in 2017. Will repeat ECHO (if unable to visualize ascending atora- can consider CTA of chest)... Do not recommend initiating antihypertensive agents with surgery planned next week. Can consider beta-sue in the future if aorta dilated. HTN- mildly elevated- encouraged diet and frantz continue to monitor. "Preoperative cardiac assessment: Low cardiac risk for upcoming orthopedic surgery." Right JOSE 10/29/23= Done under SAB with 1 attempt Per ortho outpatient post op note 11/13/23= "He was planning on doing this as an outpatient but had some effects from the spinal likely related to morphine." History Surgery Operation Date: 01/29/24 07:00 Proposed Procedures p Left Total Hip Arthroplasty - Elmer Bowels MD Height/Weight Height: 6 ft 3.5 in Weight: 122.47 kg Allergies Allergy/AdvReac Type Severity Reaction Status Date / Time ciprofloxacin AdvReac Intermediate Rash/Chest Verified 01/23/24 10:10 Tightness/SOB/Dizziness metronidazole AdvReac Intermediate Rash/Chest Verified 01/23/24 10:10 Tightness/SOB/Dizziness morphine AdvReac Intermediate Pruritis, Verified 01/28/24 09:10 feverish Penicillins AdvReac Intermediate Chest Verified 01/23/24 10:10 Pain/Vomiting sulfamethoxazole AdvReac Intermediate Rash Verified 01/23/24 10:10 trimethoprim AdvReac Intermediate Rash Verified 01/23/24 10:10 Medications Home Medications Medication Instructions Recorded Confirmed Last Taken multivitamin 1 tab PO QAM 12/14/17 01/23/24 10/28/23 08:00 sildenafil 100 mg tablet 100 mg PO UD PRN Sexual Activity 09/03/18 01/23/24 08/28/23 walker #1 ea 10/20/23 01/22/24 Unknown 3-in-1 Commode #1 ea 10/27/23 01/22/24 Unknown acetaminophen 500 mg tablet 1,000 mg (2 x 500 mg) PO TID pain 10/27/23 01/23/24 Unknown (Tylenol Extra Strength) 30 days #180 tabs Walking Cane #1 ea 11/17/23 01/22/24 Unknown ibuprofen 200 mg tablet 400 mg PO Q6H PRN Pain 01/23/24 01/23/24 Unknown tamsulosin 0.4 mg capsule (Flomax) 0.4 mg PO HS 01/23/24 01/23/24 Unknown acetaminophen 500 mg tablet 1,000 mg (2 x 500 mg) PO TID pain 01/28/24 Unknown (Tylenol Extra Strength) 30 days #180 tabs aspirin 81 mg tablet,delayed 81 mg PO BID 45 days #90 tabs 01/28/24 Unknown release (Ezequiel Low Dose Aspirin) ketorolac 10 mg tablet 10 mg PO Q6 pain 5 days #20 tabs 01/28/24 Unknown ondansetron 4 mg disintegrating 4 mg PO Q8 PRN nausea #20 tabs 01/28/24 Unknown tablet sennosides 8.6 mg tablet (Senokot) 8.6 mg PO BID prevent constipation 01/28/24 Unknown 14 days #28 tabs tramadol 50 mg tablet 50 - 100 mg (1 - 2 x 50 mg) PO Q6 01/28/24 Unknown PRN pain #40 tabs Past Medical History Medical History Adverse effect of anesthesia 10/29/23 Right JOSE - as per patient had a reaction to he thinks the morphine in epidural. Dr Bowles aware - extensive time after surgery still had itching/feverish/unable to walk Ascending aorta dilation Follows with [facility] ECHO 01/27/24 shows ascending aorta mildly dilated at 4.3cm Cardiomegaly Follows with [facility] Chronic back pain Diverticular disease (~2003) no recent issues Foot drop, right foot Daily - depending on activity History of COVID-19 (~01/2023) denies hospitalization-resolved History of sleep apnea resolved with surgery and weight loss HTN (hypertension) he notes improvement with intentional weight loss-notes occasional elevation with hip pain/white coat syndrome Lyme disease (~2017) denies residual effects - completed antibiotic tx - any flares gets doxycycline Osteoarthritis PONV (postoperative nausea and vomiting) Past Family History Family History Other No family history of adverse response to anesthesia Past Surgical History Surgical History H/O colonoscopy H/O hernia repair 08/28/20 LMA#5.> left inguinal History of adenoidectomy History of arthroscopy of both knees History of arthroscopy of right shoulder History of back surgery repair of lower discs L4 and 5, bleachers had fallen on patient, then several injections afterward > remote hx over 12 years ago History of esophagogastroduodenoscopy (EGD) History of tonsillectomy History of total right hip arthroplasty 10/29/23 [facility] S/P left inguinal hernia repair (09/2023) Laparoscopic Left Recurrent Inguinal Hernia Repair with Mesh with Extensive Enterolysis(Left) - Carmelo Polanco, DO Status post partial colectomy for diverticulitis-s/p colostomy reversal Status post uvulopalatopharyngoplasty Social History Smoking Status: Never smoker Do You Dip or Chew Tobacco: No Hx Alcohol Use: Yes Alcohol type: beer alcohol intake frequency: a few times a month Hx Substance Use: No substance use type: does not use Lab Results Anesthesia Preop Results Results Anesthesia Widget: WBC 6.41 K/ul (4.8-10.8) 01/14/24 Hgb 14.4 g/dl (14.0-18.0) 01/14/24 Hct 42.8 % (42.0-52.0) 01/14/24 Plt 280 K/uL (130-400) 01/14/24 Na 141 mmol/L (136-145) 01/14/24 K 4.5 mmol/L (3.5-5.1) 01/14/24 Cl 105 mmol/L (98-107) 01/14/24 CO2 28 mmol/L (21-32) 01/14/24 BUN 21 mg/dl (6-23) 01/14/24 Creat 0.87 mg/dl (0.6-1.4) 01/14/24 Glucose Level 100 mg/dl (70-99(Fasting)) H 01/14/24 Testing Electrocardiogram Date: 08/14/23 NSR, rate 60 bpm Incomplete RBBB Chest X-Ray Date: 10/20/23 Cardiomegaly with no active disease in the chest. Echocardiogram Date: 01/27/24 EF: 65-70% LV Function: normal RWMA: + none Other Findings: + LVH (moderate/concentric ); no diastolic dysfunction Valvular Disease: + no significant valvular disease Mildly dilated LV with normal systolic function Mildly dilated RV with normal systolic function Mild MS Mildly dilated ascending aorta at 4.3cm
[2024-01-29] MEDS: ACETAMINOPHEN 500 MG TAB PO SCH ×2 (05:36→13:37)
[2024-01-29] MEDS: CeleBREX 200 MG CAP PO SCH (05:36)
[2024-01-29] MEDS: FAMOTIDINE 20 MG TAB PO SCH (05:37)
[2024-01-29] MEDS: LR 60ML/HR IV SCH (05:37)
[2024-01-29] MEDS: METOCLOPRAMIDE HCL 10 MG TABLET PO SCH (05:37)
[2024-01-29] MEDS: LR 500ML BOLUS, THEN 15ML/HR IV SCH (06:10)
[2024-01-29] MEDS ORDERED: PROPOFOL IV EMULSION 10 MG/ML 20 ML VIAL IV ONE (06:25)
[2024-01-29] MEDS ORDERED: DexMEDEtomidine HCL IV 100 MCG/ML VIAL IV ONE (06:25)
[2024-01-29] MEDS ORDERED: MIDAZOLAM HCL 1 MG/ML 2ML VIAL ONE (06:25)
[2024-01-29] MEDS ORDERED: BUPIVACAINE 0.5 % 5 MG/1 ML PF 10ML VIAL ONE (06:25)
[2024-01-29] MEDS ORDERED: LIDOCAINE 2% 20 MG/ML 5 ML SYR IV ONE (06:25)
[2024-01-29] MEDS ORDERED: LIDOCAINE 2% 2 ML VIAL/AMP(20MG/ML) INFIL ONE (06:25)
[2024-01-29] MEDS ORDERED: fentaNYL citrate PF 100 MCG/2 ML VIAL ONE (06:25)
[2024-01-29 06:29] LABS: Partial Thromboplastin Ratio 0.9; Partial Thromboplastin Time 25 Seconds (21-31); Prothrombin Time 10.4 Seconds (9.0-12.0)
[2024-01-29] MEDS ORDERED: ATROPINE SULFATE 0.1 MG/ML 10ML SYR IV PRN (06:29)
[2024-01-29] MEDS ORDERED: ONDANSETRON INJ 2 MG/ML 2 ML VIAL IV PRN ×2 (06:29→09:12)
[2024-01-29] MEDS ORDERED: ePHEDrine sulfate 50 MG/ML AMP IV PRN (06:29)
[2024-01-29] MEDS ORDERED: fentaNYL citrate PF 100 MCG/2 ML VIAL IV PRN (06:29)
[2024-01-29] MEDS: TRANEXAMIC ACID 1,000 MG **IV Pre-op IV SCH (06:35)
--- NOTE | 2024-01-29 06:37 | History & Physical Bridge Note ---
Date of Service January 29, 2024 History & Physical Bridge Note I have examined the patient, reviewed the History & Physical and in the interval since the performance of the History & Physical I have noted the following changes of clinical significance: no changes noted
--- NOTE | 2024-01-29 06:39 | Anesthesiology Consultation ---
Date of Service January 29, 2024 Assessment & Plan Chart Review Chart Review: Acceptable Risk for Surgery and Patient NOT seen in Pre Admission Testing Consults Requested none Pulmonary ASA ASA3 Proposed Anesthesia Anesthesia Type: MAC Spinal Risk / Benefits Reviewed With: PT / POA / Parent / Guardian, Accepts Plan and Informed Consent Obtained History Surgery Operation Date: 01/29/24 07:00 Proposed Procedures p Left Total Hip Arthroplasty - Elmer Bowles MD Height/Weight Height: 6 ft 3 in Weight: 128.2 kg Allergies Allergy/AdvReac Type Severity Reaction Status Date / Time ciprofloxacin AdvReac Intermediate Rash/Chest Verified 01/29/24 05:33 Tightness/SOB/Dizziness metronidazole AdvReac Intermediate Rash/Chest Verified 01/29/24 05:33 Tightness/SOB/Dizziness morphine AdvReac Intermediate Pruritis, Verified 01/29/24 05:33 feverish Penicillins AdvReac Intermediate Chest Verified 01/29/24 05:33 Pain/Vomiting sulfamethoxazole AdvReac Intermediate Rash Verified 01/29/24 05:33 trimethoprim AdvReac Intermediate Rash Verified 01/29/24 05:33 Medications Home Medications Medication Instructions Recorded Confirmed Last Taken multivitamin 1 tab PO QAM 12/14/17 01/29/24 10/28/23 08:00 sildenafil 100 mg tablet 100 mg PO UD PRN Sexual Activity 09/03/18 01/29/24 08/28/23 walker #1 ea 10/20/23 01/22/24 Unknown 3-in-1 Commode #1 ea 10/27/23 01/22/24 Unknown acetaminophen 500 mg tablet 1,000 mg (2 x 500 mg) PO TID pain 10/27/23 01/29/24 Unknown (Tylenol Extra Strength) 30 days #180 tabs Walking Cane #1 ea 11/17/23 01/22/24 Unknown ibuprofen 200 mg tablet 400 mg PO Q6H PRN Pain 01/23/24 01/29/24 Unknown tamsulosin 0.4 mg capsule (Flomax) 0.4 mg PO HS 01/23/24 01/29/24 01/28/24 21:00 acetaminophen 500 mg tablet 1,000 mg (2 x 500 mg) PO TID pain 01/28/24 01/29/24 01/25/24 16:00 (Tylenol Extra Strength) 30 days #180 tabs aspirin 81 mg tablet,delayed 81 mg PO BID 45 days #90 tabs 01/28/24 01/29/24 Unknown release (Ezequiel Low Dose Aspirin) ketorolac 10 mg tablet 10 mg PO Q6 pain 5 days #20 tabs 01/28/24 01/29/24 Unknown ondansetron 4 mg disintegrating 4 mg PO Q8 PRN nausea #20 tabs 01/28/24 01/29/24 Unknown tablet sennosides 8.6 mg tablet (Senokot) 8.6 mg PO BID prevent constipation 01/28/24 01/29/24 Unknown 14 days #28 tabs tamsulosin 0.4 mg capsule 0.4 mg PO HS #30 caps 01/28/24 01/29/24 01/28/24 21:00 tramadol 50 mg tablet 50 - 100 mg (1 - 2 x 50 mg) PO Q6 01/28/24 01/29/24 Unknown PRN pain #40 tabs Active Medications Generic Name Dose Route Start Last Admin Trade Name Freq PRN Reason Stop Dose Admin Acetaminophen 1,000 mg 01/29/24 06:00 01/29/24 05:36 Acetaminophen 500 Mg Tab PO 01/29/24 18:00 1,000 mg PREOP YUMIKO Administration Celecoxib 200 mg 01/29/24 06:00 01/29/24 05:36 Celebrex 200 Mg Cap PO 01/29/24 18:00 200 mg PREOP YUMIKO Administration Famotidine 20 mg 01/29/24 06:00 01/29/24 05:37 Famotidine 20 Mg Tab PO 01/29/24 18:00 20 mg PREOP YUMIKO Administration Lactated Ringer's 1,000 mls @ 15 mls/hr 01/29/24 06:00 01/29/24 06:10 Lr IV 01/29/24 18:00 15 mls/hr .Q24H YUMIKO Administration Lactated Ringer's 1,000 mls @ 60 mls/hr 01/29/24 06:00 01/29/24 05:37 Lr IV 01/29/24 22:39 Not Given .[id number] YUMIKO Tranexamic Acid 1,000 mg in 100 mls @ 600 mls/hr 01/29/24 06:00 01/29/24 06:35 Tranexamic Acid / 0.7% Nacl IV 01/29/24 18:00 600 mls/hr TODAY@0600 YUMIKO Administration Metoclopramide HCl 10 mg 01/29/24 06:00 01/29/24 05:37 Metoclopramide Hcl 10 Mg Tablet PO 01/29/24 18:00 10 mg PREOP YUMIKO Administration NPO Date Last Intake of Fluids: 01/28/24 Time Last Intake of Fluids: 21:30 Date Last Intake of Solids: 01/28/24 Time Last Intake of Solids: 21:00 Past Medical History Medical History Adverse effect of anesthesia 10/29/23 Right JOSE - as per patient had a reaction to he thinks the morphine in epidural. Dr Bowles aware - extensive time after surgery still had itching/feverish/unable to walk Ascending aorta dilation Follows with [facility] ECHO 01/27/24 shows ascending aorta mildly dilated at 4.3cm Cardiomegaly Follows with [facility] Chronic back pain Diverticular disease (~2003) no recent issues Foot drop, right foot Daily - depending on activity History of COVID-19 (~01/2023) denies hospitalization-resolved History of sleep apnea resolved with surgery and weight loss HTN (hypertension) he notes improvement with intentional weight loss-notes occasional elevation with hip pain/white coat syndrome Lyme disease (~2017) denies residual effects - completed antibiotic tx - any flares gets doxycycline Osteoarthritis PONV (postoperative nausea and vomiting) Past Family History Family History Other No family history of adverse response to anesthesia Past Surgical History Surgical History H/O colonoscopy H/O hernia repair 08/28/20 LMA#5.> left inguinal History of adenoidectomy History of arthroscopy of both knees History of arthroscopy of right shoulder History of back surgery repair of lower discs L4 and 5, bleachers had fallen on patient, then several injections afterward > remote hx over 12 years ago History of esophagogastroduodenoscopy (EGD) History of tonsillectomy History of total right hip arthroplasty 10/29/23 [facility] S/P left inguinal hernia repair (09/2023) Laparoscopic Left Recurrent Inguinal Hernia Repair with Mesh with Extensive Enterolysis(Left) - Carmelo Polanco, DO Status post partial colectomy for diverticulitis-s/p colostomy reversal Status post uvulopalatopharyngoplasty Social History Smoking Status: Never smoker Do You Dip or Chew Tobacco: No Hx Alcohol Use: Yes Alcohol type: beer alcohol intake frequency: a few times a month Hx Substance Use: No substance use type: does not use Physical Exam Vital Signs Last Vital Signs Temp 36.6 C 01/29/24 05:28 Pulse 78 01/29/24 05:28 Resp 20 01/29/24 05:28 BP 185/100 H 01/29/24 05:28 Pulse Ox 96 01/29/24 05:28 O2 Del Method Room Air 01/29/24 05:28 Testing Laboratory Results PT 10.4 Seconds (9.0-12.0) 01/29/24 05:20 INR 1.0 (0.9-1.1) 01/29/24 05:20 APTT 25 Seconds (21-31) 01/29/24 05:20 Blood Type A Negative 01/29/24 05:20 Antibody Screen NEGATIVE 01/29/24 05:20 Electrocardiogram Date: 08/14/23 NSR, rate 60 bpm Incomplete RBBB Chest X-Ray Date: 10/20/23 Cardiomegaly with no active disease in the chest. Echocardiogram Date: 01/27/24 EF: 65-70% LV Function: normal RWMA: + none Other Findings: + LVH (moderate/concentric ); no diastolic dysfunction Valvular Disease: + no significant valvular disease Mildly dilated LV with normal systolic function Mildly dilated RV with normal systolic function Mild MA Mildly dilated ascending aorta at 4.3cm
[2024-01-29] MEDS: ceFAZolin 3000MG 3,000 MG/72.5 ML BAG IV SCH (07:00)
[2024-01-29] MEDS: BUPIVACAINE/EPINEPHRINE 0.25% 1:200,000 30 ML VIAL ONE (07:26)
[2024-01-29] MEDS ORDERED: ePHEDrine sulfate 50 MG/5 ML SYR ONE (07:31)
[2024-01-29] MEDS: BUPIVACAINE/EPINEPHRINE 0.5% MPF 1:200,000 30 ML VIAL ONE (07:33)
--- NOTE | 2024-01-29 08:33 | Operative Report ---
PG Post Operative Report Pre & Post Diagnosis Operation Date: 01/29/24 07:00 Pre-Op Diagnosis: Left Hip Osteoarthritis Post-Op Diagnosis: Left Hip Osteoarthritis I identified the patient and participated in the time-out.: Yes Procedure Operation Date: 01/29/24 07:00 Actual Procedures p Left Total Hip Arthroplasty(Left) - Elmer Bowles MD Surgeon Elmer Bowles MD Scabbler Garry French PA-C Estimated Blood Loss 150 Findings Consistent with Post-Op Diagnosis Operative findings revealed left hip arthritis. Moderate-sized joint effusion. Moderate sized anterior acetabular osteophyte. Specimens Left femoral head sent for pathology. Anesthesia Type Spinal MAC Complications none Disposition Accompanied Patient To Recovery: No Indications Patient is a 53-year-old gentleman whose had a several year history of increasing hip pain and discomfort is gotten worse over time. He had his right hip replaced about 3 months ago and is recovered nicely. Continues to bothered by left hip and leg pain. X-rays show advanced hip arthritis. He elected proceed with total hip arthroplasty. Description of Procedure Operative implants consist of: 1 Biomet G7 size 56 mm acetabular shell. 2. 6.5 cancellous acetabular screws 1 at 35 mm in length and 1 of 20 mm length. 3. Olyphant hole office clin asst. 4. Highly cross-linked polyethylene liner with a 56 mm outer diameter and 36 mm inner diameter. 5. DePuy Corail I size 13 KLA femoral stem. 6. +5/36 mm ceramic articular ball. The patient was taken to the operating, identified, placed on the operating table in the supine position. All contact areas were appropriately padded. IV antibiotics fibra anesthesia team. A spinal anesthetic had been implemented holding area. The patient was then placed in the right lateral decubitus position. An axillary roll was placed. Distal Birkett position was used for positioning. The left hip and leg were then prepped and draped in usual sterile fashion. A posterolateral approach to the left hip was then performed to a curvilinear incision centered over the greater trochanter. Sharp dissection was got through subcutaneous tissue dental of the IT band gluteal fascia with the IT band gluteal fascia incised longitudinally in line with skin incision. The underlying greater troches bursa was excised. The piriformis and external rotators along with the posterior hip joint capsule were then released from the posterior aspect the hip as a single layer. Hip was internally rotated and dislocated. A femoral neck osteotomy cut was made with Final Cut about 17 mm above the lesser trochanter. Femoral head was removed and sent for pathology. The femur was retracted anteriorly. Attention drawn the acetabulum. The acetabular labrum was excised. The pulmonary fat was excised. Sequential reaming the acetabulum was then performed beginning with a size 47 and progressing up to 55. I reamed a little bit with a 56 reamer and then placed a 56 mm Biomet G7 acetabular shell in about 40 degrees lateral opening and 20 degrees of anteversion. It was fixed with two 6.5 cancellous acetabular screws. An anterior osteophyte was removed. A trial liner was placed. Attention drawn the femur. The proximal femur was entered with a Dapper cutter followed by canal finder. Then broached beginning with size 8 and progressing up to 13. We got excellent fitted to 13. The calcar reamer was used smoothing out the calcar. I trialed the hip and the +5 articular ball provided full stability in full extension and external rotation and flexion to 90 degrees into rotation over 50 degrees. Leg lengths seemed equal. Soft tissue tension was appropriate. We elect to place these implants. All trial implants were removed. An apex hole office clin asst was placed. Highly cross-linked polyethylene liner was placed. A size 13 KLA femoral stem was impacted in position. A +5/36 mm ceramic articular ball was placed. Hip was located and once again found to be stable. Attention drawn toward closing. Wound was irrigated with copious muscle pulsatile lavage solution. I did inject locally with 60 cc of half percent Marcaine with epinephrine. The posterior capsule and external rotators were then repaired through drill holes in the posterior trochanter with #2 Tycron suture. The IT band gluteal fascia then closed #1 PDS suture in running fashion for the subcutaneous tissues then closed with 2 layers with a deep layer #1 Vicryl suture and subcutaneous tissues with 2-0 Dexon suture in a buried interrupted fashion. Skin was closed with skin stephanie. Leg was then cleaned and dried and a sterile dressing was Xeroform, 4 x 4's, ABD pad and foam tape was applied. The patient then transferred to the recovery room in stable condition. Patient tolerated the procedure well and there were no complications. Garry French, my physician entry level administrative assistant, was present for the entire procedure. His assistance was essential and required for appropriate patient positioning, prepping and draping, surgical exposure, performing the technical details of the operation, placement the implants, closure of the wound, and placement of the sterile bandage. I attest to the content of the Intraoperative Record and any orders documented therein. Any exceptions are noted below.
--- NOTE | 2024-01-29 09:08 | Anesthesiology Progress Note ---
Date of Service January 29, 2024 Anesthesia Post Procedure Vital Signs Vital Signs: Temp Pulse Pulse Resp BP Pulse Ox O2 Del Method 01/29/24 08:50 36.4 C L 73 12 137/65 96 Room Air 01/29/24 08:40 79 20 140/67 95 Room Air 01/29/24 08:30 86 19 147/76 H 95 Room Air 01/29/24 08:24 36.3 C L 98 H 23 126/69 94 Room Air 01/29/24 05:28 36.6 C 78 20 185/100 H 96 Room Air Notes Mental Status: alert / awake / arousable Patient Amnestic to Procedure: Yes Nausea / Vomiting: adequately controlled Pain: adequately controlled Airway Patency, RR, SpO2: stable & adequate BP & HR: stable & adequate Hydration State: stable & adequate Neuraxial Anesthesia: was administered and sensory block is resolving Anesthetic Complications: no major complications apparent
[2024-01-29] MEDS ORDERED: bisacodyL 10 MG SUPP PR PRN (09:12)
[2024-01-29] MEDS ORDERED: NALOXONE HCL 0.4 MG/1 ML VIAL/CARP IV PRN (09:12)
[2024-01-29] MEDS ORDERED: MAGNESIUM HYDROXIDE SUSP 30 ML UDC PO PRN (09:12)
[2024-01-29] MEDS ORDERED: ALUMINUM/MAGNESIUM SUSP 30 ML UDC PO PRN (09:12)
[2024-01-29] MEDS ORDERED: SENNA 8.6 MG TAB PO SCH (09:12)
[2024-01-29] MEDS ORDERED: HYDROmorphone INJ 0.5 MG/0.5 ML SYR IV PRN (09:12)
[2024-01-29] MEDS ORDERED: NON-FORMULARY MEDICATION (Multivitamin Tablet) PO SCH (09:12)
[2024-01-29] MEDS ORDERED: NON-FORMULARY MEDICATION (Sildenafil 100 mg tablet) PO PRN (09:12)
[2024-01-29] MEDS ORDERED: ACETAMINOPHEN 500 MG TAB PO SCH (09:12)
[2024-01-29] MEDS ORDERED: METOCLOPRAMIDE HCL INJ 5 MG/ML 2 ML VIAL IV PRN (09:12)
[2024-01-29] MEDS ORDERED: diphenhydrAMINE Capsule 25 MG CAP PO PRN (09:12)
[2024-01-29] MEDS: ASPIRIN 81 MG ECTAB PO SCH (10:29)
[2024-01-29] MEDS: MULTIVITAMIN TAB PO SCH (10:29)
[2024-01-29] MEDS: DOCUSATE SODIUM 100 MG CAP PO SCH (10:32)
[2024-01-29] MEDS: traMADol HCL 50 MG TABLET PO PRN (10:32)
[2024-01-29] MEDS: KETOROLAC 30 MG/ML VIAL IV SCH (11:52)
--- NOTE | 2024-01-29 11:59 | XRay Report ---
XR hip 1V LT w pelvis CLINICAL HISTORY: IN PACU - Post Surgical TECHNIQUE: 1 view of the left hip and single frontal view of the pelvis were obtained. Comparison: Comparison is made to hip radiographs 10/29/2023 FINDINGS: Patient is status post total hip arthroplasty with expected postsurgical changes including soft tissu e swelling and subcutaneous emphysema. Right hip arthroplasty is again seen. IMPRESSION: Expected postoperative appearance status post placement of total hip arthroplasty. ACT 112: Negative or not required by law. Electronically signed by: Tato Delacruz M.D. 01/29/2024 11:58 AM
[2024-01-29] MEDS: TRANEXAMIC ACID / 0.7% NACL 1,000 MG/100 ML BAG IV SCH (13:38)
[2024-01-29] MEDS: ceFAZolin 2000MG 2,000 MG/15 ML SYR IV SCH (15:53)
[2024-01-29] MEDS: ASCORBIC ACID 500 MG TAB PO SCH (17:36)
[2024-01-29] MEDS: LORazepam 1 MG TAB PO ONE (17:36)
[2024-01-29] MEDS: SENNA 8.6 MG TAB PO SCH (20:34)
[2024-01-29] MEDS: TAMSULOSIN HCL 0.4 MG CAP PO SCH (20:34)
[2024-01-29] MEDS ORDERED: TAMSULOSIN HCL 0.4 MG CAP PO SCH (21:00)
[2024-01-30 03:27] VITALS: O2SAT 94
[2024-01-30 06:26] LABS: Basophils # (auto) 0.08 K/uL (0.00-0.20); Basophils % (auto) 0.7 %; Eosinophils # (auto) 0.18 K/uL (0.00-0.50); Eosinophils % (auto) 1.7 %; Hematocrit (blood only) 35.5 % (42.0-52.0); Immature Granulocytes # (auto) 0.03 K/uL (0.01-0.20); Immature Granulocytes % (auto) 0.3 %; Lymphocytes # (auto) 1.68 K/uL (1.20-3.40); Lymphocytes % (auto) 15.5 %; Mean Corpuscular Hemoglobin 29.9 pg (25.0-34.0); Mean Corpuscular Hgb Conc 33.8 g/dL (32.0-36.0); Mean Corpuscular Volume 88.5 fL (80.0-100.0); Mean Platelet Volume 10.1 fL (9.4-12.4); Monocytes # (auto) 1.37 K/uL (0.11-0.59); Monocytes % (auto) 12.7 %; Neutrophils # (auto) 7.49 K/uL (1.40-6.50); Neutrophils % (auto) 69.1 %; Platelet Count 201 K/uL (130-400); RDW Coefficient of Variation 14.3 % (11.5-14.5); Red Blood Count 4.01 M/uL (4.70-6.10); White Blood Count 10.83 K/ul (4.8-10.8)
[2024-01-30 06:41] LABS: BUN Creatinine Ratio 21.1 (10-20); Calcium 8.5 mg/dl (8.6-10.3); Potassium 4.2 mmol/L (3.5-5.1)
--- NOTE | 2024-01-30 06:58 | Orthopedic Progress Note ---
Date of Service January 30, 2024 Assessment & Plan (1) Status post left hip replacement: Plan: 53-year-old gentleman postop day 1 from a left hip replacement. He is doing well. His pain is controlled. Hips located. He is neurologically intact. Plan: 1. DVT prophylaxis including thigh-high teds, SCDs, aspirin twice a day. 2. PT/OT. Weight-bear as tolerated. Left total hip protocol. 3. Pain control. Doing well with current pain regimen. 4. Disposition. Plan to discharge to home with some home health if he does okay in therapy today. (2) S/P total right hip arthroplasty: Admission and Anticipated Discharge Date Admission Date: January 29, 2024 Subjective 53-year-old gentleman postop day 1 from a left hip replacement. He is doing well. Is been up walking a couple times. Pains controlled. No chest pain or shortness of breath. Feeling dizzy or lightheaded. Physical Exam Physical Exam: Physical examination is a pleasant middle-age male. Is lying bed looks pretty comfortable this morning. Examination left hip and leg reveals leg to be well aligned. Leg lengths are equal. Dressings clean dry and intact. Thigh is soft and supple. He is neurologically intact. Respiratory: normal respiratory effort, lungs clear to auscultation Cardiovascular: RRR, no murmur, no edema Gastrointestinal (Abdomen): normal bowel sounds, soft, nontender, no hepatosplenomegaly Results & Data Vital Signs (Past 12 Hours) Vital Signs Temp Pulse Resp BP Pulse Ox O2 Del Method 01/30/24 03:25 36.6 C 76 15 174/97 H 94 Room Air 01/29/24 22:56 36.6 C 77 16 154/80 H 96 Room Air 01/29/24 19:51 36.7 C 71 17 172/95 H 95 Room Air Laboratory Results Hemoglobin is 12.0. Hematocrit is 35.5. Electrolytes are stable.
[2024-01-30 08:31] VITALS: BP 162/89; RESP 16; TEMP 98.4
[2024-01-30] MEDS: dexAMETHasone 10 MG in SYRINGE 0 ML IV SCH (08:33)
[2024-01-30 10:04] VITALS: PULSE 62
--- NOTE | 2024-02-03 15:11 | Discharge Summary ---
Date of Service February 03, 2024 Admission HPI (Per Admitting) . Patient is a 53-year-old gentleman now about 3 months out from a right total hip replacement. Pain continues to improve. He is continue to have persistent progressive increased pain discomfort in his left hip. Scribes groin pain, thigh pain rating down to his knee. No numbness. He would like to have his left hip replaced. Admission Exam (Per Admitting) . Physical examination was a pleasant middle-age male. Looks be in good health. Examination of the left hip reveal patient to well walks with a slight bit of a limp. He is about a half a centimeter shorter on the left side compared to the right. He is got pain and stiffness with hip rotation. Internal rotation in neutral. Negative straight leg raise. He is neurologically intact. Principal Diagnosis Same as "Discharge Diagnosis" noted below under Discharge Instructions. Discharge Data Procedures Performed Operation Date: 01/29/24 07:00 Actual Procedures p Left Total Hip Arthroplasty(Left) - Elmer Bowles MD Hospital Course (1) Status post left hip replacement: This is a 53 year old patient admitted on 01/29/24 and underwent total hip arthroplasty. He tolerated the procedure well and there were no complications. Transferred to the PACU post op and later to the orthopedic floor for further care. He was given ancef for antibiotic prophylaxis. He was also given PEDRO stockings, SCDs, and aspirin for DVT prophylaxis. Hemoglobin, hematocrit, and vital signs were monitored during his hospital stay and remained stable. Did not require any blood transfusions. There were no complications during his hospital stay. By post op day #1 the patient was tolerating a regular diet, pain was reasonably controlled with oral pain medicine, and he was participating in physical therapy. On post op day #1 the patient was discharged home and set up with home health care. He was given printed discharge instructions including prescriptions for extra strength tylenol, aspirin, ketorolac, zofran, senokot, tramadol, and flomax. Continue hip precautions. Continue physical therapy, weight bearing as tolerated. Continue PEDRO stockings. Follow up approximately 2 weeks post op or sooner if there are problems or concerns. Discharge Plan Discharge Items Patient Disposition: Home - Home Health Services Reason For Visit: Left Hip Osteoarthritis Discharge Diagnosis: Left Hip REplacement Activity: Per Instructions section Activity Comment: Follow/Obey hip precautions at all times. Weightbearing: Full weightbearing Weightbearing Comment: Weightbear as tolerated obeying hip precautions at all times. Non-emergency contact: Surgeon Call non-emergency contact if: you have any medication questions Follow-up/Referrals: Renato Cramer MD [Primary Care Provider] - Diet: Regular Addtl Attending Provider Instructions: ACTIVITY RECOMMENDATIONS: Diet: * You may resume previous diet. Physical Therapy: * Aggressive physical therapy is not usually needed. You will learn to take care of yourself safely and walk. * Follow the "Hip Precautions Instructions." * In some cases, the director social welfare at the hospital will arrange to have a therapist come to your house for the first couple of weeks to help you learn these skills. * You need to practice on your own or with the help of a family member as needed. * When you learn these skills, most of the therapy can be done on your own. Home Exercise: * You were shown a series of exercises in the hospital. Do these exercises three to four times each day including the exercises you were shown in physical therapy. Walking: * Get up and walk several times each day. For the first four weeks, try not to stand or walk for more than one hour at a time. If you do stand or walk for more than one hour, you will not hurt anything, but your leg will likely swell. * As you feel comfortable, you may change from the walker or crutches to a cane and then to independent walking. MEDICATIONS: New Medicine: * You will likely be taking one or more of these medicines: 1. Tramadol - Take, as directed, when you need it, every six hours to control your pain. 2. Aspirin - Thins your blood to lessen the chance of forming a blood clot. * The most common side effects of pain medicine and iron are nausea and constipation. If nausea or constipation is too much of a problem or if you have any questions about your new medicines or doses, call [facility] at . We will try to help you manage these issues. "VERY IMPORTANT TO READ AND REVIEW" Pain: * The immediate post-operative period after hip replacement surgery is often quite painful. * You are given a prescription for pain medicine. You should take it, as directed, when you need it, especially before physical therapy and before going to bed. Pain that interferes with sleep is very common and can last several months. * You will likely need pain medicine for the first two to four weeks. It will not stop all of the pain. The pain will lessen and as you feel better, you may change to milder pain medicine such as Tylenol. * The most common side effects of pain medicine are nausea and constipation, so don't take more than you need. SPECIAL CARE INSTRUCTIONS: TEDs/Elastic Stockings: * The white elastic stockings help limit swelling and prevent blood clots from forming in your legs. The more you wear them, the more they work. * Wear them for six weeks. Incision Site Care: * Remove dressing postoperative day 2 and then shower. Keep direct shower pressure off the incision site. * After showering, cover stephanie with dry gauze and change daily or more frequently if the dressing is getting saturated with drainage. * May completely stop using bandage if wound is dry and no drainage * Spurgeon are removed between 2 and 3 weeks post-op. If your follow-up appointment is made before 2 weeks, please have your appointment re- scheduled. It is too early to remove the stephanie. Prevention of Infection: * Take antibiotics one hour before any dental cleaning, dental work, urological procedure, gastrointestinal procedure or any invasive surgery in order to prevent your new joint from getting infected. * You may get the antibiotics from the doctor performing the procedure or you may call our office at before and we will call in a prescription to the pharmacy of your choice. Things to Watch For: * Drainage from the incision site that occurs more than one week after your surgery. * Severely increased leg pain or swelling. * Increased redness at the incision site. * Fever above 102 degrees Fahrenheit. * Unusual chest pain or shortness of breath. * Unusual pain or burning with urination. Call [facility] at with any of the above problems or if you have any questions about your medicines or recovery. FOLLOW UP VISIT: Make an appointment to see your doctor for approximately two weeks after surgery for a progress check and staple removal by calling the office at . Pending Studies at Discharge: No Stand-Alone Forms: [facility], Smoking Cessation Medications and DC Order Prescriptions: Continued (DME) walker Misc See Rx Instructions .MEDSUPPLY Qty: 1 0RF Rx Instructions: As directed (DME) 3-in-1 Commode Misc See Rx Instructions .MEDSUPPLY Qty: 1 0RF Rx Instructions: As directed acetaminophen [Tylenol Extra Strength] 500 mg tablet 1,000 mg PO TID 30 Days Qty: 180 0RF Rx Instructions: Take 3 times per day to lessen pain. (DME) Walking Cane Mis See Rx Instructions .MEDSUPPLY Qty: 1 0RF Rx Instructions: As directed tramadol 50 mg tablet 50 - 100 mg PO Q6 PRN (Reason: pain) Qty: 40 0RF Rx Instructions: Take as needed for pain ondansetron 4 mg tablet,disintegrating 4 mg PO Q8 PRN (Reason: nausea) Qty: 20 1RF Rx Instructions: Take as needed for nausea ketorolac 10 mg tablet 10 mg PO Q6 5 Days Qty: 20 0RF Rx Instructions: Take 4 times per day with food for 5 days to lessen pain and swelling. sennosides [Senokot] 8.6 mg tablet 8.6 mg PO BID 14 Days Qty: 28 0RF Rx Instructions: Take two times a day to prevent/treat constipation acetaminophen [Tylenol Extra Strength] 500 mg tablet 1,000 mg PO TID 30 Days Qty: 180 0RF Rx Instructions: Take 3 times per day to lessen pain. aspirin [Ezequiel Low Dose Aspirin] 81 mg tablet,delayed release (DR/EC) 81 mg PO BID 45 Days Qty: 90 0RF Rx Instructions: Take to prevent blood clots. tamsulosin 0.4 mg capsule 0.4 mg PO HS Qty: 30 2RF multivitamin Tablet 1 tab PO QAM sildenafil 100 mg tablet 100 mg PO UD PRN (Reason: Sexual Activity) tamsulosin [Flomax] 0.4 mg capsule 0.4 mg PO HS Rx Instructions: Begin night BEFORE surgery to prevent urinary retention Discontinued ibuprofen 200 mg Tablet 400 mg PO Q6H PRN (Reason: Pain) Admission Data Admit Date/Time: 01/29/24 08:26 Attending Provider: Elmer Bowles Admit Provider: Elmer Bowles Primary Care Provider: Renato Cramer Other Interventions: Discharge Summary Assessment (RN) Last Done: 01/30/24 10:02
== END 2024-01-30 10:37 | disposition home health service (06) ==
LOC: ASU 05:07 → 3E 05:07